=== PATIENT | female | born 1930 | race Caucasian/White ===

== ENCOUNTER 2016-12-24 09:38 | Emergency (ER) | payer OTHER ==
[~2016-12-24] VITALS: Ht 149.9 cm; Wt 56.7 kg
[~2016-12-24 09:38] MED LIST: AUGMENTIN 500M500 MG PO; COMBIGAN EYE DRO5 ML OP; DETROL LA 2 MG2 MG PO; FLU VACCINE 0.0.5 ML IM; LEVAQUIN750 MG PO; LEVOTHYROXINE100 MC1 PO; LISINOPRIL/HCTZ1 TAB PO; MIRAPEX0.5 M1 PO; NAPROSYN375 MG PO; NORVASC5 M1 PO; PERCOCET 325 MG1 TA2 PO; PRAMIPEXOLE DI0.5 MG PO; PRESERVISION A1 EACH PO; PRINIVIL 5MG5 MG; PROVENTIL0.09 MG/A1 INH; SINEMET 25-2501 EACH PO; SINEMET CR 50 M1 TER PO; SINEMET CR 50-1 EACH PO; SYMBICORT 80-10.2 GM INH; TRAMADOL50 MG PO; XALATAN2.5 ML OS
--- NOTE | 2016-12-24 09:56 | ED NECK/BACK PAIN COMPLAINT ---
History of Present Illness General Chief Complaint: Low Back Pain/Injury Stated Complaint: FALL LAST WEEK LBP Source: patient, old records, diesel inspector Exam Limitations: no limitations Vital Signs & Intake/Output Vital Signs & Intake/Output Vital Signs Date Time Temp Pulse Resp B/P Pulse O2 O2 Flow FiO2 Ox Delivery Rate 12/24 1152 97.2 66 18 144/75 97 Room Air 12/24 1127 96 Room Air 12/24 0944 97.0 80 16 118/70 97 Room Air Allergies Coded Allergies: prochlorperazine (From COMPAZINE) (Severe, ANAPHYLAXIS 02/09/16) prednisone (Intermediate, HALLUCINATIONS 02/09/16) Reconcile Medications Albuterol Sulfate (Proventil Hfa) 90 MCG HFA.AER.AD 2 PUF INH Q4 PRN BREATHING PROBLEMS (Reported) Amlodipine Besylate (Norvasc) 5 MG TABLET 1 TAB PO DAILY HEART (Reported) Brimonidine Tartrate/Timolol (Combigan Eye Drops) 0.2 %-0.5 % DROPS 1 DROP OP BID GLAUCOMA (Reported) Budesonide/Formoterol Fumarate (Symbicort 80-4.5 Mcg Inhaler) 80 MCG-4.5 MCG/ ACTUATION HFA.AER.AD 2 PUF INH BID COPD (Reported) Carbidopa/Levodopa (Sinemet Cr 50-200 Tablet) 50 MG-200 MG TABLET.ER 1 TAB PO QPM PARKINSONS (Reported) Carbidopa/Levodopa (Sinemet 25-250 MG Tablet) 25 MG-250 MG TABLET 1-2 TAB PO 4 TIMES/DAY PARKINSONS (Reported) Latanoprost (Xalatan) 0.005 % DROPS 1 GTT OS QPM OCCULAR PRESSURE (Reported) Levothyroxine Sodium 100 MCG TABLET 1 TAB PO DAILY AC THYROID (Reported) Pramipexole Di-HCl (Mirapex) 0.5 MG TABLET 2 TAB PO 4 TIMES/DAY PARKINSONS ( Reported) Tramadol HCl 50 MG TABLET 1 TAB PO BIDP PRN PAIN (Reported) Tramadol HCl 50 MG TABLET 1 TAB PO BIDP PRN breakthrough pain Vit A/Vit C/Vit E/Zinc/Copper (Preservision Areds Tablet) 7,160-113 TABLET 1 TAB PO BID EYE (Reported) Triage Note: PT FELL LAST WEEK PER INVESTMENT ADVISOR STATES HER BACK HAS BEEN FINE. PT STATES SHE WENT TO MOVE LAST NIGHT IN BED AND SHE BEGAN TO HAVE LEFT SIDED BACK PAIN. PT VOIDING WITHOUT DIFFICULTY Triage Nurses Notes Reviewed? yes Onset: Abrupt Duration: day(s): (1), constant, waxing and waning Timing: recent history Quality/Severity: moderate Location: paraspinous muscles Radiation: none Context: fall/near fall Method of Injury: fall Loss of Consciousness: no loss of consciousness Modifying Factors: movement, rest Associated Symptoms: DENIES HPI: 86-year-old female with history of Parkinson's, COPD hypertension presents emergency room complaining of left mid back pain since 1:00 this morning. The patient states that she fell from a standing height approximately 8 days ago landing on the left side of her back. She was in the kitchen and she stood up too fast before her diesel inspector to get over to her causing her to fall backwards. There is no prodromal dizziness or lightheadedness at the time. The patient denies any pain in her back up until today. There's been no other recent history of injury or trauma. She denies any urinary or bowel incontinence no abdominal pain no dysuria urgency or frequency. No change in her bowel movements no chest pain up her back or neck pain she did not hit her head there was no loss of consciousness when she fell 8 days ago she is not on any anticoagulation. The pain is only present with palpation and change in position. She has not taken anything for her symptoms. She denies any arm or leg pain. She lives with her son and normalLY ambulates with a walker (JUNAID WOO) Past History Travel History Traveled to [place] past 21 day No Medical History Any Pertinent Medical History? see below for history Neurological: Parkinson's disease EENT: NONE Cardiovascular: hypertension Respiratory: asthma, bronchitis Gastrointestinal: NONE Hepatic: NONE Renal: RHABDOMYOLYSIS Musculoskeletal: NONE Psychiatric: NONE Endocrine: hypothyroidism Blood Disorders: NONE Cancer(s): NONE HYDRAULIC BLOCKER/Reproductive: NONE Other Medical Hx: FREQUENT FALLS, HYPONATERMIA History of MRSA: No History of VRE: No History of CDIFF: No Tetanus Vaccine: 11/16/09 Surgical History Surgical History: APPY, CHOLY,KNEES Psychosocial History Who do you live with Son Services at Home None What is your primary language Syrian Tobacco Use: Never used ETOH Use: occasional use Illicit Drug Use: denies illicit drug use Family History Family History, If Any: SON FH: diabetes mellitus FH: hypertension SISTER FH: colon cancer Hx Contributory? No (JUNAID WOO) Review of Systems Review of Systems Constitutional: Reports: see HPI. All Other Systems: Reviewed and Negative Comments Review of systems: See HPI, All other systems negative. Constitutional, no chills no fever, no malaise HEENT: no sore throat no congestion Cardiovascular: No chest pain , no palpitation Skin, no jaundice no rashes, no change in skin Respiratory: No dyspnea no cough no sputum GI: No nausea no vomiting, no diarrhea : No dysuria Muscle skeletal: No joint pain, back pain, no neck pain, Neurologic: No numbness no headache Psych: No stress Heme/endocrine: No bruising no bleeding Immunology: No lymphadenopathy, (JUNAID WOO) Physical Exam Physical Exam General Appearance: well developed/nourished, no apparent distress, alert Neck: normal inspection, supple, full range of motion, normal alignment Comments: Well-developed well-nourished person in no acute distress HEENT: Normal EENT exam; PERRL, EOMI, HEAD is atraumatic. moist mucous membranes. Neck: Supple,\ normal range of motion without pain or tenderness Back: There is a 4 x 5 cm area of ecchymosis that is healing to the left mid back up machine operator to palpation no obvious deformity no midline tenderness there is left-sided perimuscular tenderness to palpation to the mid back and lower back no CVA tenderness. Full range of motion Cardiovascular: Regular rate and rhythms no murmurs rubs or gallops Respiratory: Chest nontender.There were no bony deformities, no asymmetry. No respiratory distress. Patient speaking in full complete sentences. Breath sounds clear to auscultation bilaterally: NO W/R/R Abdomen: Soft, nontender nondistended, no appreciable organomegaly. Normal bowel sounds. No rebound/guarding, No appreciable enlargement of the abdominal aorta Shoulder: Atraumatic/Stable. FROM . Elbow: Atraumatic/stable. FROM. No laxity Upper arm/Forearm: Atraumatic. Nontender. No edema, 5 out of 5 chain forming machine operator strength noted to bilateral upper extremities Hand/Wrist: Atraumatic/stable. Skin intact. FROM Pulses: Normal/equal radial pulses bilaterally. Brisk cap refill Hip/Pelvis: Atraumatic/Stable. FROM. No pain with pelvic compression Knee: Atraumatic/stable. FROM. No joint swelling, no effusion. No laxity. Leg: Atraumatic. Nontender. No edema, 5 out of 5 strength in the lower extremity, normal dorsiflexion of great toe bilaterally, gross sensation is intact Ankle/Foot: Atraumatic/stable. Skin intact. FROM. No swelling, no effusion. No laxity on exam Pulses: Normal/equal DP/PT pulses bilaterally. Brisk cap refill Neuro: Alert oriented x3, motor sensory normal, cranial nerves II through XII grossly intact. There were no obvious focal neurologic abnormalities. Skin: No appreciable rash on exposed skin, skin is warm and dry. Psych: Mood and affect is normal, memory and judgment is normal. (JUNAID WOO) Progress Differential Diagnosis: AAA, aortic dissection, cauda equina syn, herniated disc , myofascial strain, pyelo/UTI, sciatica, spinal cord inj, retroperitoneal hematoma Plan of Care: Orders Procedure Date/time Status URINALYSIS 12/24 1058 Complete Laboratory Tests 12/24/16 1104: Urine Color YEL, Urine Clarity CLEAR, Urine pH 6.0, Ur Specific [place] 1.020, Urine Protein NEG, Urine Ketones TRACE H, Urine Nitrite NEG, Urine Bilirubin NEG, Urine Urobilinogen 0.2, Ur Leukocyte Esterase NEG, Ur Microscopic EXAM NOT REQUIRED, Urine Hemoglobin NEG, Urine Glucose NEG CAT scan, tramadol 50 mg by mouth ordered patient was ambulatory by herself to the bathroom 12/24/2016 12:20:25 PM patient reports the pain has improved with tramadol. Patient is ambulatory here in the ER was stable gait with diesel inspector. I discussed with her and her diesel inspector at length all of her CT findings including the incidental findings. Discussed the need for close follow-up with her primary care physician this week rest ice to return immediately however if her symptoms worsen despite medication they feel comfortable plan (JUNAID WOO) Diagnostic Imaging: Viewed by Me: CT Scan. Discussed w/RAD: CT Scan. (JUNAID WOO) Departure Departure Time of Disposition: 1220 Disposition: HOME OR SELF CARE Condition: Stable Clinical Impression Primary Impression: Low back strain Secondary Impressions: Degenerative disc disease, Fall, Spinal stenosis, T12 compression fracture Referrals: VERN ROSE,PRESTON Henry (PCP/Family) Additional Instructions: Tylenol every 8 hours as needed for pain. Follow-up with her primary care physician today for follow-up evaluation this week. Rest interchange ice and heat. Tramadol as needed for breakthrough pain this prescription was sent to your pharmacy return immediately if you worsening of your symptoms or any other concerns Departure Forms: Customer Survey General Discharge Information Prescriptions: Current Visit Scripts Tramadol HCl 1 TAB PO BIDP PRN breakthrough pain #10 TAB (TWILA MALDONADO,JUNAID) PA/FARM MANAGEMENT ADVISER Co-Sign Statement Statement: ED Attending supervision documentation- x I saw and evaluated the patient. I have also reviewed all the pertinent lab results and diagnostic results. I agree with the findings and the plan of care as documented in the PA's/FARM MANAGEMENT ADVISER's documentation. [] I have reviewed the ED Record and agree with the PA's/FARM MANAGEMENT ADVISER's documentation. [] Additions or exceptions (if any) to the PAs/FARM MANAGEMENT ADVISER's note and plan are summarized below: [] (LISA ROSE,HOWARD)
[2016-12-24] MEDS ORDERED: PROVENTIL HFA6.7 GM INH (10:37)
[2016-12-24] MEDS ORDERED: TRAMADOL HCL50 M1 PO ×2 (10:41→12:21)
[2016-12-24 11:52] VITALS: BP 144/75
--- NOTE | 2016-12-24 11:55 | CT SCAN REPORT ---
EXAMINATION: CT THORACIC SPINE WITHOUT CONTRAST CT LUMBAR SPINE WITHOUT CONTRAST CLINICAL INFORMATION: 86-year-old female with left-sided pain after fall. COMPARISON: CT of chest, abdomen and pelvis from 02/01/2016. TECHNIQUE: Noncontrast multidetector CT imaging examination was focused on the thoracic spine using 0.625 mm collimation. Coronal and sagittal reformatted images were generated and reviewed. Also, noncontrast multidetector CT imaging of the lumbar spine was performed. Dose length product was 615 mGy-cm. FINDINGS: THORACIC SPINE: There is chronic multilevel degenerative disc space narrowing and osteophyte formation of the thoracic spine. There is mild facet arthropathy of the upper thoracic spine. There is chronic, minimal degenerative anterolisthesis of T2 on T3. No acute fractures within anterior or posterior elements. No evidence of traumatic subluxation. There is an old anterior compression fracture of T12 with at least 35% anterior height loss and prominent Schmorl's node is present at the deformed T12 inferior endplate. Vacuum disc phenomenon is present within the degenerated T12-L1 disc and within the Schmorl's node, which extends into the anterior third of the vertebral body. The thoracic spinal canal and neural foramina are widely patent. No paraspinal hematoma. The visualized medial ribs and costovertebral joints are intact. There is a moderate-sized hiatal hernia. Thoracic aorta is calcified. The mitral valve annulus is calcified. No pericardial effusion. No acute findings in the visualized portions of the lungs compared to 02/01/2016. LUMBAR SPINE: No acute findings within the chronically degenerated, malaligned lumbar spine compared to 02/01/2016. The anterior and posterior elements remain intact. At L1-L2 and L2-L3, there is chronic, severe loss of disc space, disc bulge, vacuum disc phenomenon, endplate sclerosis and osteophytosis. Mild facet arthropathy is present at these levels. The posterior disc osteophyte complexes produce mild indentation upon the ventral surface of the thecal sac. There is [id number] stenosis of the neural foramina, most pronounced on the left at L2-L3. At L3-L4, there is mild facet arthropathy, disc bulge, vacuum disc phenomenon with chronic 3 mm anterolisthesis of L3 on L4. The facet arthropathy and disc bulge produce moderate bilateral foraminal stenosis. At L4-L5, there is chronic moderate disc degeneration and facet arthropathy with 0.6 cm of grade 1 anterolisthesis of L4 on L5. The facet arthropathy and disc bulge produce moderate left and [id number] right foraminal stenosis. There is multifactorial moderate spinal canal stenosis at L4-L5. At L5-S1, there is chronic severe disc degeneration and mild facet arthropathy with chronic, minimal retrolisthesis of L5 on S1. The disc bulge and vertebral osteophytes produce moderate bilateral foraminal stenosis (right worse than left). The sacral ala and foramina are intact. No acute findings at the chronically degenerated sacroiliac joints. There is atherosclerosis of the tortuous abdominal aorta without aneurysm. The splenic artery is densely calcified. No retroperitoneal hematoma. Diverticulosis of the visualized sigmoid colon without diverticulitis. A jejunal tube is partially included in the [id number]. IMPRESSION: No acute fracture or traumatic subluxation within the chronically degenerated thoracolumbar spine compared to 02/01/2016. There is an old T12 anterior compression fracture with at least 35% anterior height loss. Prominent Schmorl's node involves the T12 inferior endplate, as well. Within the lumbar spine, spinal canal stenosis is present at L4-L5 and there is chronic grade 1 anterolisthesis of L4 on L5. There is multilevel lumbar foraminal stenosis.
== END 2016-12-24 12:32 ==
LOC: ERH 09:38
DX: S39.012A Strain of muscle, fascia and tendon of lower back, initial encounter (principal); S22.080A Wedge compression fracture of T11-T12 vertebra, initial encounter for closed fracture; M48.00 Spinal stenosis, site unspecified; W19.XXXA Unspecified fall, initial encounter
CPT/HCPCS: 81003

== ENCOUNTER 2017-05-21 08:38 | Inpatient (IN) | payer OTHER ==
[~2017-05-21] VITALS: Ht 152.4 cm; Wt 56.7 kg
[~2017-05-21 08:38] MED LIST changes: +PROVENTIL HFA6.7 GM INH; +TRAMADOL HCL50 M1 PO
[2017-05-21] MEDS ORDERED: CALCIUM500 M2 PO (08:53)
--- NOTE | 2017-05-21 08:54 | NUR ---
87 YO FEMALE BIBA FROM HOME. PER EMS, PT LIVES AT [facility] WITH A 24 HORUS AIDE. THE AIDE CALLED THIS AM STATING THE PT HAS BEEN ALTERED SINCE YESTERDAY AM. PT ARRIVES ALERT & ORIENTED TO SELF AND PLACE, PT TATING IT IS THURSDAY AND APRIL WHEN ASKED ABOUT DATE AND MONTH. PT HX OF TIA. PT DENIES CHEST PAIN/SOB. C/O FREQUENT URINATION, DENIES PAIN/BURNING. PT NSR ON MONITOR. RA SATS 96%. PT HAS ?PUMP ON CHEST, PER PT SHE STATES ITS FOR HER PARKINSONS. PT ALSO STATE SHE HAS BEEN FALLING ALOT, STATES SHE THINKS LAST FALL WAS ON ?THURSDAY. DENIES INJURY FROM FALL. EQUAL HAND GRASPS. R EYE NOTED WITH DROOP. EQUAL SMILE.
[2017-05-21] MEDS ORDERED: LATANOPROST2.5 ML OPH (08:55)
[2017-05-21] MEDS ORDERED: SPIRIVA18 MCG INH (08:55)
--- NOTE | 2017-05-21 09:02 | NUR ---
BLOOD DRAWN AND SENT TO LAB (BLUE,SST,PINK,LAV,BOOTH)
--- NOTE | 2017-05-21 09:07 | NUR ---
STRAIGHT CATH PERFORMED FOR URINE SPECIMEN, OUTPUT 100CC CLEAR URINE. SPECIMEN SENT TO LAB. XRAY AT BEDSIDE
--- NOTE | 2017-05-21 09:22 | NUR ---
PT TO CT SCAN VIA STRETCHER AT THIS TIME
[2017-05-21 09:24] LABS: ABSOLUTE BASOPHIL COUNT 0 /CUMM (0.0-0.2); ABSOLUTE EOSINOPHIL COUNT 0.1 /CUMM (0.0-0.7); ABSOLUTE GRANULOCYTE CT 4.2 /CUMM (1.4-6.5); ABSOLUTE LYMPH COUNT 0.7 /CUMM (1.2-3.4); ABSOLUTE MONOCYTE COUNT 0.4 /CUMM (0.10-0.60); BASOPHIL % 0.5 % (0.0-2.0); EOSINOPHIL % 1.8 % (0-5); GRANULOCYTE % 76.7 % (42.2-75.2); HEMATOCRIT 40.8 % (37-47); MEAN CORPUSCULAR HGB CONC 33.3 G/DL (33.0-37.0); MEAN PLATELET VOLUME 8.6 FL (7.4-10.4); PLATELET COUNT 223 /CUMM (130-400); RBC DISTRIBUTION WIDTH 13.4 % (11.5-14.5); RED BLOOD CELL CT 4.25 /CUMM (4.20-5.40); WHITE BLOOD CELL COUNT 5.5 /CUMM (4.8-10.8)
--- NOTE | 2017-05-21 09:29 | ED AMS/SEIZURE/WEAK/DIZZY ---
History of Present Illness General Chief Complaint: Altered Mental Status Stated Complaint: ALTERED MENTAL STATUS, WEAKNESS Source: patient, family, old records Exam Limitations: dementia Allergies Coded Allergies: prochlorperazine (From COMPAZINE) (Severe, ANAPHYLAXIS 02/09/16) prednisone (Intermediate, HALLUCINATIONS 02/09/16) Reconcile Medications Amlodipine Besylate (Norvasc) 5 MG TABLET 1 TAB PO DAILY HEART (Reported) Brimonidine Tartrate/Timolol (Combigan Eye Drops) 0.2 %-0.5 % DROPS 1 DROP OP BID GLAUCOMA (Reported) Budesonide/Formoterol Fumarate (Symbicort 80-4.5 Mcg Inhaler) 80 MCG-4.5 MCG/ ACTUATION HFA.AER.AD 2 PUF INH BID COPD (Reported) Calcium Carbonate (Calcium) 500 MG CALCIUM (1,250 MG) TAB.CHEW 500 MG PO D SUPPLEMENT (Reported) Carbidopa/Levodopa (Sinemet Cr 50-200 Tablet) 50 MG-200 MG TABLET.ER 1 TAB PO QPM PARKINSONS (Reported) Latanoprost (Xalatan) 0.005 % DROPS 1 GTT OS QPM OCCULAR PRESSURE (Reported) Levothyroxine Sodium 100 MCG TABLET 1 TAB PO DAILY AC THYROID (Reported) Tiotropium [place] (Spiriva) 18 MCG CAP.W.DEV 1 CAP INH DAILY PRN SOB ( Reported) Triage Note: 87 YO FEMALE TIM FROM HOME. PER EMS, PT LIVES AT [facility] WITH A 24 HORUS AIDE. THE AIDE CALLED THIS AM STATING THE PT HAS BEEN ALTERED SINCE YESTERDAY AM. PT ARRIVES ALERT & ORIENTED TO SELF AND PLACE, PT TATING IT IS THURSDAY AND APRIL WHEN ASKED ABOUT DATE AND MONTH. PT HX OF TIA. PT DENIES CHEST PAIN/SOB. C/O FREQUENT URINATION, DENIES PAIN/BURNING. PT NSR ON MONITOR. RA SATS 96%. PT HAS ?PUMP ON CHEST, PER PT SHE STATES ITS FOR HER PARKINSONS. PT ALSO STATE SHE HAS BEEN FALLING ALOT, STATES SHE THINKS LAST FALL WAS ON ?THURSDAY. DENIES INJURY FROM FALL. EQUAL HAND GRASPS. R EYE NOTED WITH DROOP. EQUAL SMILE. Triage Nurses Notes Reviewed? yes Onset: Abrupt Duration: day(s): (few), constant, continues in ED Timing: recent history Injury Environment: home No Modifying Factors: none HPI: 87-year-old female comes into emergency room for further evaluation of altered mental status by ambulance. History of Parkinson's disease as well as TIAs. Family reports that they noticed the patient was not acting right yesterday. She seemed to be increasingly weak. Not acting herself. Patient and family deny any chest pain shortness of breath abdominal pain fever vomiting. This morning she was bent over to her right side and contracted. This is happening in the past with her Parkinson's but has never been this severe. History of urinary tract infections. They noted that her urine was very concentrated this morning. Denies any other associated symptoms at this time. (LEANNA MORRISSEY) Vital Signs & Intake/Output Vital Signs & Intake/Output Vital Signs Date Time Temp Pulse Resp B/P B/P Pulse O2 O2 Flow FiO2 Mean Ox Delivery Rate 05/21 1052 98.3 64 18 100/67 95 Room Air 05/21 0855 95 Room Air 05/21 0845 97.3 80 20 120/78 96 Room Air Past History Travel History Traveled to [place] past 21 day No Medical History Any Pertinent Medical History? see below for history Neurological: Parkinson's disease EENT: NONE Cardiovascular: hypertension Respiratory: asthma, bronchitis Gastrointestinal: NONE Hepatic: NONE Renal: RHABDOMYOLYSIS Musculoskeletal: NONE Psychiatric: NONE Endocrine: hypothyroidism Blood Disorders: NONE Cancer(s): NONE BAG SEWER/Reproductive: NONE Other Medical Hx: FREQUENT FALLS, HYPONATERMIA History of MRSA: No History of VRE: No History of CDIFF: No Tetanus Vaccine: 11/16/09 Surgical History Surgical History: APPY, CHOLY,KNEES Psychosocial History Who do you live with Son Services at Home None What is your primary language Sami Tobacco Use: Never used ETOH Use: denies use Illicit Drug Use: denies illicit drug use Family History Family History, If Any: SON FH: diabetes mellitus FH: hypertension SISTER FH: colon cancer Hx Contributory? No (LEANNA MORRISSEY) Review of Systems Review of Systems Constitutional: Reports: see HPI. EENTM: Reports: no symptoms. Respiratory: Reports: no symptoms. Cardiovascular: Reports: no symptoms. GI: Reports: no symptoms. Genitourinary: Reports: no symptoms. Musculoskeletal: Reports: no symptoms. Skin: Reports: no symptoms. Neurological/Psychological: Reports: see HPI. Hematologic/Endocrine: Reports: no symptoms. Immunologic/Allergic: Reports: no symptoms. All Other Systems: Reviewed and Negative (LEANNA MORRISSEY) Physical Exam Physical Exam General Appearance: alert, awake Head: atraumatic, normal appearance Eyes: Bilateral: normal appearance, EOMI. Ears, Nose, Throat: normal ENT inspection, hearing grossly normal Neck: normal inspection Respiratory: normal breath sounds, no respiratory distress Cardiovascular: regular rate/rhythm Gastrointestinal: soft Back: normal inspection Extremities: normal range of motion Neurologic/Psych: no motor/sensory deficits, awake, alert, oriented x 3, abnormal cerebellar tests (right finger (chronic)) Skin: intact, normal color Core Measures ACS in differential dx? Yes CVA/TIA Diagnosis: Yes Severe Sepsis Present: No Septic Shock Present: No Bedside Dysphagia Screen Bedside Swallow Eval Done: Yes Result of Evaluation: Pass (LEANNA MORRISSEY) Progress Differential Diagnosis: arrythmia, alcohol intoxication, CVA/stroke, dehydration , encephalitis, electrolyte imbalance, hypoxia, intracranial Hem., intracranial mass/tumor, labrynthitis, pneumonia, sepsis, seizure disorder, subarachnoid Hem. , UTI/pyelo, vertebrobasilar insuff, TIA Plan of Care: Orders Procedure Date/time Status CBC WITHOUT DIFFERENTIAL 05/22 600 Active BASIC ELECTROLYTES PLUS BUN&CR 05/22 06 Active Heart Healthy Diet 05/21 D Active PT Evaluate & Treat 05/21 1306 Active Pathway - chart 05/21 1306 Active House Staff 05/21 1306 Active Patient Data 05/[address] in observation 05/21 1206 Active CULTURE,URINE 05/21 0851 Active URINALYSIS 05/21 0851 Complete TROPONIN LEVEL 05/21 0851 Complete LIPASE 05/21 0851 Complete LACTIC ACID 05/21 0851 Complete COMPREHENSIVE METABOLIC PANEL 05/21 0851 Complete CBC WITHOUT DIFFERENTIAL 05/21 0851 Complete EKG 05/21 0844 Active VTE Mechanical Prophylaxis 05/21 UNK Active Vital Signs 05/21 UNK Active MISTAKE 05/21 UNK Active Precautions 05/21 UNK Active Current Medications Sig/Cristal Start time Last Medication Dose Stop Time Status Admin Heparin Sodium 5,000 UNIT Q8 05/21 1400 UNVr (Porcine) Acetaminophen 650 MG Q6P PRN 05/21 1315 UNVr (Tylenol) Acetaminophen/ 1 TAB Q6P PRN 05/21 1315 UNVr Hydrocodone Bitart (Vicodin) Hydromorphone HCl 0.5 MG Q4P PRN 05/21 1315 UNVr (Dilaudid) Laboratory Tests 05/21/17 1151: Lactic Acid Cancelled 05/21/17 0905: Urine Color YEL, Urine Clarity CLEAR, Urine pH 6.5, Ur Specific [place] 1.020, Urine Protein TRACE H, Urine Ketones 15 H, Urine Nitrite NEG, Urine Bilirubin NEG, Urine Urobilinogen 0.2, Ur Leukocyte Esterase TRACE H, Ur Microscopic SEDIMENT EXAMINED, Urine WBC 5-10 H, Ur Epithelial Cells FEW, Urine Bacteria FEW H, Hyaline Casts 1-3 H, Urine Hemoglobin NEG, Urine Glucose NEG 05/21/17 0859: Anion Gap 11, Estimated GFR > 60, BUN/Creatinine Ratio 32.0 H, Glucose 190 H, Lactic Acid 1.8, Calcium 9.1, Total Bilirubin 0.8, AST 20, ALT 20, Alkaline Phosphatase 85, Troponin I < 0.01, Total Protein 7.0, Albumin 4.0, Globulin 3.0, Albumin/Globulin Ratio 1.3, Lipase 69, CBC w Diff NO MAN DIFF REQ, RBC 4.25, MCV 96.0, MCH 32.0 H, RDW 13.4, MPV 8.6, Gran % 76.7 H, Lymphocytes % 13.1 L, Monocytes % 7.9, Eosinophils % 1.8, Basophils % 0.5, Absolute Granulocytes 4.2, Absolute Lymphocytes 0.7 L, Absolute Monocytes 0.4, Absolute Eosinophils 0.1, Absolute Basophils 0, PUBS MCHC 33.3 Microbiology 05/21 905 URINE ROUT: Urine Culture - RECD Diagnostic Imaging: Viewed by Me: Radiology Read, CT Scan. Discussed w/RAD: Radiology Read, CT Scan. Radiology Impression: SERVICE DATE: 05/21/17 EXAM TYPE: CAT - CT HEAD WO IV CONTRAST EXAMINATION: CT HEAD WITHOUT CONTRAST CLINICAL INFORMATION: Frequent falls. Altered mental status. COMPARISON: CT head 07/13/2016. TECHNIQUE: Contiguous axial imaging was performed from the skull base to vertex without intravenous administration of contrast. DLP: 548.93 mGy-cm FINDINGS: There is no acute intracranial hemorrhage or abnormal extra-axial collection. No intracranial mass effect or midline shift. Lateral and third ventricles are proportionate to the subarachnoid spaces. No hydrocephalus. There is a small focus of hypoattenuation within the left cerebellar hemisphere that most likely represents a small infarct that has remained unchanged from prior imaging. There are numerous foci of nonspecific hypoattenuation throughout the periventricular white matter and basal ganglia that most likely represent a chronic manifestation of small vessel ischemia. Grossly no evidence of acute territorial infarct. The calvarium and skull base are intact. Mastoid air cells and middle ear cavities are well-aerated. Paranasal sinuses are well-aerated. Hardware along the lateral margin of the right globe is unchanged. Orbits are otherwise unremarkable. IMPRESSION: Stable examination. Numerous chronic findings remain essentially unchanged when compared to most recent prior examination from 2015. No evidence of acute territorial infarct or hemorrhage. DICTATED BY: JOJO ROSE,ELYSSA Mares DATE/TIME DICTATED:05/21/171002 FARM MACHINERY ERECTOR: DARVIN DATE/TIME TRANSCRIBED:05/21/171002, SERVICE DATE: 05/21/17 EXAM TYPE: RAD - XRY-PORTABLE CHEST XRAY EXAMINATION: XR PORTABLE CHEST CLINICAL INFORMATION: Altered mental status COMPARISON: 07/13/2016 TECHNIQUE: Portable frontal view of the chest was obtained. FINDINGS: No focal consolidation, pulmonary edema, or pleural effusion. Stable cardiomediastinal silhouette. IMPRESSION: No acute cardiopulmonary findings. No change. DICTATED BY: MERISSA PARKER MD DATE/TIME DICTATED:05/21/17944 FARM MACHINERY ERECTOR: DARVIN DATE/TIME TRANSCRIBED:05/21/17944 Initial ED EKG: normal intervals, normal p-waves, normal sinus rhythm, rate (68) , nonspecific ST T wave chg (LEANNA MORRISSEY) Comments: 05/21/2017 12:23:31 PM I have discussed this patient's case with Dr. Valles, including the clinical impression of TIA, the presence of the patient's carbidopa pump and the possibility of a shingles rash of the right upper extremity (as determined by ERICA Nicholson). She has asked the nursing supervisor computer operations be alerted to the carbidopa pump. (SANDRA ROSE,CURTIS Lindsay) Departure Departure Disposition: STILL A PATIENT Condition: Stable Clinical Impression Primary Impression: TIA (transient ischemic attack) Secondary Impressions: Shingles rash Referrals: VERN ROSE,PRESTON Henry (PCP/Family) Departure Forms: Customer Survey General Discharge Information (LEANNA MORRISSEY) Observation Note Spoke With: REMY LOONEY MD Physician Advisor Notified: ANUSHKA ROSE,GAMALIEL Flores Place Patient In: Non-ED OBS Care Area Rationale for Observation: My rational for observation is as follows patient's clinical presentation is consistent with a TIA. This places her at risk of a stroke with subsequent morbidity and mortality. The patient now requires an expedited evaluation for reversible causes of stroke including carotid artery disease and cardioembolic phenomenon. The do not feel she is a good candidate for outpatient management under the circumstances. Patient's Age and history of severe Parkinson disease would make outpatient management challenging. I suspect that the patient would not be able to complete the expedited evaluation necessary. I feel she now requires hospitalization for further evaluation including consideration of echocardiogram and carotid Doppler studies. Neurology consultation should also be considered. Patient's medication should be reviewed and adjusted accordingly. Continuous cardiac monitoring should also be performed for the possibility of transient dysrhythmias including atrial fibrillation. PA/SCHOOL PATROL Co-Sign Statement Statement: ED Attending supervision documentation- [X] I saw and evaluated the patient. I have also reviewed all the pertinent lab results and diagnostic results. I agree with the findings and the plan of care as documented in the PA's/SCHOOL PATROL's documentation. [] I have reviewed the ED Record and agree with the PA's/SCHOOL PATROL's documentation. [] Additions or exceptions (if any) to the PAs/SCHOOL PATROL's note and plan are summarized below: [] (SANDRA ROSE,CURTIS Lindsay)
--- NOTE | 2017-05-21 09:38 | NUR ---
BACK FROM CAT SCAN
--- NOTE | 2017-05-21 09:50 | RADIOLOGY REPORT ---
EXAMINATION: XR PORTABLE CHEST CLINICAL INFORMATION: Altered mental status COMPARISON: 07/13/2016 TECHNIQUE: Portable frontal view of the chest was obtained. FINDINGS: No focal consolidation, pulmonary edema, or pleural effusion. Stable cardiomediastinal silhouette. IMPRESSION: No acute cardiopulmonary findings. No change.
--- NOTE | 2017-05-21 10:10 | CT SCAN REPORT ---
EXAMINATION: CT HEAD WITHOUT CONTRAST CLINICAL INFORMATION: Frequent falls. Altered mental status. COMPARISON: CT head 07/13/2016. TECHNIQUE: Contiguous axial imaging was performed from the skull base to vertex without intravenous administration of contrast. DLP: 548.93 mGy-cm FINDINGS: There is no acute intracranial hemorrhage or abnormal extra-axial collection. No intracranial mass effect or midline shift. Lateral and third ventricles are proportionate to the subarachnoid spaces. No hydrocephalus. There is a small focus of hypoattenuation within the left cerebellar hemisphere that most likely represents a small infarct that has remained unchanged from prior imaging. There are numerous foci of nonspecific hypoattenuation throughout the periventricular white matter and basal ganglia that most likely represent a chronic manifestation of small vessel ischemia. Grossly no evidence of acute territorial infarct. The calvarium and skull base are intact. Mastoid air cells and middle ear cavities are well-aerated. Paranasal sinuses are well-aerated. Hardware along the lateral margin of the right globe is unchanged. Orbits are otherwise unremarkable. IMPRESSION: Stable examination. Numerous chronic findings remain essentially unchanged when compared to most recent prior examination from 07/13/2016. No evidence of acute territorial infarct or hemorrhage.
--- NOTE | 2017-05-21 11:44 | NUR ---
ASSITED PT TO BEDPAN, NO URINE AT THIS TIME. PT REPOSITONED IN BED. FAMILY AND CAREGIVER REMIAN AT BEDSIDE.
--- NOTE | 2017-05-21 12:43 | History & Physical ---
ISELA SHERMAN 05/21/17 1242: General Information and HPI MD Statement: I have seen and personally examined MAC MITCHELL and documented this H&P. The patient is a 87 year old F who presented with a patient stated chief complaint of [altered mental staus]. Source of Information: patient, family Exam Limitations: clinical condition, poor historian History of Present Illness: 87-year-old female with a past medical history of Parkinson's disease on infusion pump for 16 hours, hypertension, questionable TIA, macular degeneration , COPD not on home oxygen, hypothyroidism, hypertension was brought in by ambulance to the ER with chief complaint of altered mental status and what seems to be seizure-like activity. History is obtained from the patient's health aide and her son. Apparently the patient was having breakfast this morning at around 7:30 AM when she suddenly beame unresponsive and had jerky movements, closed her eyes and was shaking, not responding to any verbal commands. This episode lasted for about 5 minutes and was a witnessed event. Patient does not recall the event at all. She denies any chest pain, palpitations, nausea, vomiting, diaphoresis prior to the event occurring. Apparently she was sitting at the breakfast table and so there is no history of fall. According to the home health aide Mell, patient did have some right-sided ptosis which gradually resolved. There is no right-sided facial droop or weakness that the family noticed. Patient seemed incoherent but there is no history of slurred speech that they can completely identify with. Of note Ms. Mitchell uses a walker at baseline for ambulation. She seemed a little altered since yesterday and was found to be confused, saying things that were out of context. [place] and was having increased difficulty coordinating and in feeding herself. Patient does endorse some urinary frequency last night, however, denies any burning sensation, fever, chills, cough, purulent productive phlegm, abdominal pain, nausea, vomiting, diarrhea. Of note she follows up with Dr. Chamorro at [facility] and is on an infusion pump for her Parkinson's (apparently an experimental trial). There is a history of pain in her right arm with the appearance of vesicular rash this morning. Apparently the patient is not immunocompromised, however, there has been recent stressors with 2 of her close friends and sister passing away recently. There is no history of tick bite. Apparently she's had frequent falls which for the most part are mechanical as the patient was not using her walker. They last fall was about 2 months ago. No history of bladder or bowel incontinence and or tongue biting. Allergies/Medications Allergies: Coded Allergies: prochlorperazine (From COMPAZINE) (Severe, ANAPHYLAXIS 02/09/16) prednisone (Intermediate, HALLUCINATIONS 02/09/16) Home Med list Amlodipine Besylate (Norvasc) 5 MG TABLET 1 TAB PO DAILY HEART (Reported) Brimonidine Tartrate/Timolol (Combigan Eye Drops) 0.2 %-0.5 % DROPS 1 DROP OP BID GLAUCOMA (Reported) Budesonide/Formoterol Fumarate (Symbicort 80-4.5 Mcg Inhaler) 80 MCG-4.5 MCG/ ACTUATION HFA.AER.AD 2 PUF INH BID COPD (Reported) Calcium Carbonate (Calcium) 500 MG CALCIUM (1,250 MG) TAB.CHEW 500 MG PO D SUPPLEMENT (Reported) Carbidopa/Levodopa (Sinemet Cr 50-200 Tablet) 50 MG-200 MG TABLET.ER 1 TAB PO QPM PARKINSONS (Reported) Latanoprost (Xalatan) 0.005 % DROPS 1 GTT OS QPM OCCULAR PRESSURE (Reported) Levothyroxine Sodium 100 MCG TABLET 1 TAB PO DAILY AC THYROID (Reported) Mirabegron (Myrbetriq) 50 MG TAB.ER.24H 1 TAB PO DAILY overactive bladder ( Reported) Tiotropium [place] (Spiriva) 18 MCG CAP.W.DEV 1 CAP INH DAILY PRN SOB ( Reported) Compliance With Home Meds: GOOD Past History Travel History Traveled to [place] past 21 day No Medical History Neurological: Parkinson's disease EENT: NONE Cardiovascular: hypertension Respiratory: asthma, bronchitis Gastrointestinal: NONE Hepatic: NONE Renal: RHABDOMYOLYSIS Musculoskeletal: NONE Psychiatric: NONE Endocrine: hypothyroidism Blood Disorders: NONE Cancer(s): NONE PIN ATTACHER/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 Home Who Do You Live With? child Services at Home: Home Health Aide Primary Language: Zimbabwean Smoking Status: Never Smoked ETOH Use: denies use Illicit Drug Use: denies illicit drug use Power of Hand Worker/HCP? yes Functional Ability ADLs Independent: dressing, eating, toileting, bathing. Ambulation: walker IADLs Independent: shopping, housework, finances, food prep, telephone, transportation , medication admin. Review of Systems Review of Systems Constitutional: Denies: chills, fever, weakness. EENTM: Denies: visual changes. Cardiovascular: Denies: chest pain, orthopena, palpitations, peripheral edema. Respiratory: Denies: cough, short of breath, sputum production, wheezing. GI: Denies: abdominal pain, constipation, diarrhea, nausea, vomiting. Genitourinary: Reports: frequency. Denies: discharge, dysuria, hematuria, pain, urgency. Musculoskeletal: Reports: see HPI, back pain. Neurological/Psychological: Reports: confusion, tremors. Denies: headache, numbness, paresthesia, unable to move lower ext, unable to move upper ext, weakness. Exam & Diagnostic Data Last 24 Hrs of Vital Signs/I&O Vital Signs Date Time Temp Pulse Resp B/P B/P Pulse O2 O2 Flow FiO2 Mean Ox Delivery Rate 05/21 1052 98.3 64 18 100/67 95 Room Air / 0855 95 Room Air 05/21 0845 97.3 80 20 120/78 96 Room Air Intake & Output 05/21 1600 07/06 0800 07/ 0000 Intake Total Output Total Balance Patient 125 lb Weight Weight Reported by Patient Measurement Method Physical Exam General Appearance Alert, Cooperative, No Acute Distress, oriented to person Skin has vesicopustular rash on her right arm that invloves the distributionof the brachial plexus Skin Temp/Moisture Exam: Warm/Dry Sepsis Skin Exam (color): Normal for Ethnicity HEENT Atraumatic, EOMI, Mucous Membr. moist/pink, right eye minimally recative, left eye s/p catract surgery Neck Supple, No JVD, +2 Carotid Pulse wo Bruit, No LAD Cardiovascular Normal S1, Normal S2, No Murmurs Lungs Clear to Auscultation, Normal Air Movement Abdomen Normal Bowel Sounds, Soft, No Tenderness, has a PEG tube attached to infusion pump, site is not tender, non-erythematous. Neurological Normal Speech, Sensation Intact, cogwheel rigidity with pin rolling tremor of right hand, CNII- VII and IX- XII grossly intact intact; gait not assessed; Extremities No Cyanosis, No Edema, Normal Pulses, No Tenderness/Swelling, Has degenerative arthritic changes in her hands. Vascular Normal Pulses, Pulses Symmetrical Last 24 Hrs of Labs/Deangelo: Laboratory Tests 05/21/17 1151: Lactic Acid Cancelled 05/21/17 0905: Urine Color YEL, Urine Clarity CLEAR, Urine pH 6.5, Ur Specific [place] 1.020, Urine Protein TRACE H, Urine Ketones 15 H, Urine Nitrite NEG, Urine Bilirubin NEG, Urine Urobilinogen 0.2, Ur Leukocyte Esterase TRACE H, Ur Microscopic SEDIMENT EXAMINED, Urine WBC 5-10 H, Ur Epithelial Cells FEW, Urine Bacteria FEW H, Hyaline Casts 1-3 H, Urine Hemoglobin NEG, Urine Glucose NEG 05/21/17 0859: Anion Gap 11, Estimated GFR > 60, BUN/Creatinine Ratio 32.0 H, Glucose 190 H, Lactic Acid 1.8, Calcium 9.1, Total Bilirubin 0.8, AST 20, ALT 20, Alkaline Phosphatase 85, Troponin I < 0.01, Total Protein 7.0, Albumin 4.0, Globulin 3.0, Albumin/Globulin Ratio 1.3, Lipase 69, CBC w Diff NO MAN DIFF REQ, RBC 4.25, MCV 96.0, MCH 32.0 H, RDW 13.4, MPV 8.6, Gran % 76.7 H, Lymphocytes % 13.1 L, Monocytes % 7.9, Eosinophils % 1.8, Basophils % 0.5, Absolute Granulocytes 4.2, Absolute Lymphocytes 0.7 L, Absolute Monocytes 0.4, Absolute Eosinophils 0.1, Absolute Basophils 0, PUBS MCHC 33.3 Microbiology 05/21 905 URINE ROUT: Urine Culture - RECD Diagnostic Data EKG Results NSR, HR: 68; normal axis, no ST-T changes. CXR Results FINDINGS: No focal consolidation, pulmonary edema, or pleural effusion. Stable cardiomediastinal silhouette. IMPRESSION: No acute cardiopulmonary findings. No change. Other Results SERVICE DATE: 05/21/17-899 EXAM TYPE: CAT - CT HEAD WO IV CONTRAST FINDINGS: There is no acute intracranial hemorrhage or abnormal extra-axial collection. No intracranial mass effect or midline shift. Lateral and third ventricles are proportionate to the subarachnoid spaces. No hydrocephalus. There is a small focus of hypoattenuation within the left cerebellar hemisphere that most likely represents a small infarct that has remained unchanged from prior imaging. There are numerous foci of nonspecific hypoattenuation throughout the periventricular white matter and basal ganglia that most likely represent a chronic manifestation of small vessel ischemia. Grossly no evidence of acute territorial infarct. The calvarium and skull base are intact. Mastoid air cells and middle ear cavities are well-aerated. Paranasal sinuses are well-aerated. Hardware along the lateral margin of the right globe is unchanged. Orbits are otherwise unremarkable. IMPRESSION: Stable examination. Numerous chronic findings remain essentially unchanged when compared to most recent prior examination from 07/13/2016. No evidence of acute territorial infarct or hemorrhage. Assessment/Plan Assessment: 87-year-old woman with a past medical history of Parkinson's, TIA, hypothyroidism, hypertension, COPD who was brought in by ambulance from home with chief complaints of altered mentation. Vitals at the time of admission blood pressure 100/67, respiratory rate of 18, pulse 64, afebrile saturating 95% on room air. Labs pertinent for normal white blood cell count 5500, H&H of 13.6/40.8, MCV of 96.0. Platelet count is within normal limits at 2 23,000. Serum chemistries revealed a sodium of 138, potassium of 4.3, normal bicarbonate, BUN 16 with a creatinine of 0.5. Serum glucose elevated to 190. Lactic acid within normal limits at 1.8. LFTs unremarkable with an AST/alt of 20/20, alkaline phosphatase of 85, total bili of 0.8% of troponin negative less than 0.01. Serum lipase within normal limits at 69. UA revealed trace amount of proteinuria, 15 ketones , trace amount of leukocyte esterase, 5-10 white blood cells, 1-3 hyaline casts. Chest x-ray revealed: No acute cardiopulmonary findings. No change. EKG revealed: NSR, HR: 68; normal axis, no ST-T changes. Head CT showed numerous chronic findings essentially unchanged when compared to the CT done back in June 2016. No evidence of acute territorial infarct or hemorrhage. There is a small focus of hypoattenuation within the left cerebellar hemisphere that most likely represents a small infarct that has remained unchanged from prior imaging. There are numerous foci of nonspecific hypoattenuation throughout the periventricular white matter and basal ganglia that most likely represent a chronic manifestation of small vessel ischemia. Grossly no evidence of acute territorial infarct. The calvarium and skull base are intact. Mastoid air cells and middle ear cavities are well-aerated. Paranasal sinuses are well-aerated. Hardware along the lateral margin of the right globe is unchanged. Assessment and Plan: Bring under observation to telemetry. #Altered mental status Most divyaley 2/2 worsening Parkinsons, with ? seizure like activity this AM, unlikely metabolic given normal electrolytes for now. Patient passed bedside swallow eval. However, will r/o TIA given symptoms of trasnient right sided ptosis. F/U carotid US, MRI brain, TSH, FT4, serum prolactin level, Vitamin B12, echocardiogram, EEG, and orthostatic itals. Will check HbA1c as her FSG was elvated to 190. Neuro consult with Dr. Rodriguez. F/U ercommendations. Formal PT and speech therapy. Fariha on fall and seizure precautions. 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 Already palced consult with . F/U recs. Of note for localized zoster, she just needs to be on standard precautions. Will check for HIV, patient is has no apparent reason to be immunocompromised. #Hx of Parkisnons. On infusion pump that the health aide knows how to hold and disconnect and maniputae with. Continue on infusion pump fo rnow, and Carbidopa-Levodopa 50/200 at bedtime for now. Called Dr. Baumann's office, awaiting call back. #HTN Continue Amlodipine 5 mg daily. #Hypothyroidism Continue Levothyroxine 0.1mg # COPD not on home oxygen - Continue Spiriva and Symbicort # Hyperactive urinary bladder Continue home dose of Myrbetriq - Diet Regular Await formal swallow eval - DVT Prophylaxis - Heparin 5000IU TID SC - Code Status - Full Code. As Ranked By This Provider Problem List: 1. Shingles rash 2. Parkinson's disease 3. Frequent falls 4. Seizure Core Measures/Miscellaneous Acute Coronary Syndrome ACS Diagnosis: No Cerebrovascular Accident CVA/TIA Diagnosis: No NIH Stroke Scale: Total 1 Date Last Known Well: 05/21/17 Time Last Known Well: 729 Neurological S/S of CVA: Incoherent Speech Symptom Start Date: 05/21/17 Symptom Start Time: 729 Bedside Swallow Eval Done: Yes Result of Evaluation: Pass Antithrombotic: Yes AFIB: No Aflutter: No Anticoagulant: No No Anticoag d/t: Medical Contraindication Evidence of Atherosclerosis: No LDL Assessed Within 24 Hours: Yes Currently on Statin: No Rehab Needs Assessed: Medical Eval for Rehab PT Consult Ordered: Yes Congestive Heart Failure CHF Diagnosis: No VTE (View Protocol) VTE Risk Factors: Age > 40 No Mech VTE prophylaxis d/t: No contraindications No VTE Pharm Prophylaxis d/t: No contraindications VTE Diagnosis: No VTE Type: NONE VTE Confirmed by (Test): NONE Sepsis (View Protocol) Severe Sepsis Present: No Septic Shock Septic Shock Present: No Miscellaneous Documentation Attending Case Discussed With: Dr. Mccain Primary Care Physician: PRESTON PORRAS MD Patient sees these Specialists Dr. Stephen Ivey Level of Patient Care: Telemetry Resident Review Statement Resident Statement: admitted by resident MANNY MCCAIN 05/21/17 1429: Attending MD Review Statement Attending Statement Attending MD Statement: examined this patient, discuss w/resident/PA/COFFEE FARMER, agreed w/resident/PA/COFFEE FARMER, discussed with family, reviewed EMR data (avail), discussed with nursing, discussed with case mgmt, reviewed images, amended to note Attending Assessment/Plan: 87 o/f poor historian with pmh of parkinson disease on carbidopa/levadopa as outpatient followed by neurology at [place], comes with altered mental status and rash on right arm with abnormal movements of arms. vital stable, PE with rash otherwise unremarkable. ASSESSMENT 1. Encephalopathy r/o seizure vs TIA no focal deficit 2. Shingles infection 3. Parkinson disease on carbidopa/levadopa 4. hypothyroidism 5. copd stable PLAN monitor telemetry monitoring, frequent neurochecks MRI brain, Neurology consult, resume home meds, bedside swallow test. CPKs, echo, carotid USG, obtain previous medical records resume home meds gi/dvt prophyalxis
--- NOTE | 2017-05-21 13:36 | NUR ---
PT REMAINS RESTING COMOFRTBLY ON STRETCHER. OFFERS NO COMPLAINTS FAMILY REMAINS AT BEDSIDE
--- NOTE | 2017-05-21 13:37 | NUR ---
HEART HEALTHY TRAY ORDERED FOR PT AT THIS TIME
--- NOTE | 2017-05-21 13:40 | NUR ---
BED 189
[2017-05-21] MEDS ORDERED: MYRBETRIQ50 M1 PO (14:41)
--- NOTE | 2017-05-21 15:03 | NUR ---
PT AT BEDSIDE, ULTRASOUND TO COME OVER FOR US PRIOR TO PT GOING UPSTAIRS
--- NOTE | 2017-05-21 15:03 | NUR ---
REPORT GIVEN TO APRIL ON TELE.
--- NOTE | 2017-05-21 15:05 | NUR ---
US AT BEDSIDE
--- NOTE | 2017-05-21 15:05 | NUR ---
PHYSICAL THERAPY- RECIEVED CONSULT, REVIEWED CHART, SPOKE WITH RN. ATTEMPTED TO SEE PATIENT FOR I.E. HOWEVER IMAGING PRESENT TO COMPLETE ULTRASOUND. Pt TO BE ADM TELE 189; WILL F/U APPROPRIATE FOR EVALUATION. THANK YOU.
--- NOTE | 2017-05-21 15:11 | NUR ---
ROOM CHANGED TO [facility].
--- NOTE | 2017-05-21 15:17 | NUR ---
DR FLORES IN ROOM TO LOOK AT RASH ON PTS R ARM, PER DR FLORES PT IS OK TO BE ON CONTACT PERCAUTIONS FOR ?SHINGLES.
--- NOTE | 2017-05-21 15:40 | NUR ---
PT MEDICATED WITH ASPIRIN AND HEPARIN SC PER ORDER AT THIS TIME
--- NOTE | 2017-05-21 16:03 | NUR ---
REPORT GIVEN TO SHIVANI. TRANSPORT BOOKED
--- NOTE | 2017-05-21 16:12 | ULTRASOUND REPORT ---
EXAMINATION: DUPLEX BILATERAL CAROTID ULTRASOUND CLINICAL INFORMATION: TIA. COMPARISON: None. TECHNIQUE: Duplex bilateral carotid US was performed using real-time ultrasound and Doppler techniques (integrating B-mode 2D vascular images, Doppler spectral analysis and color flow Doppler imaging). These techniques were utilized to interrogate the extracranial carotid and vertebral arteries bilaterally. The degree of stenosis is based off criteria similar to NASCET. FINDINGS: No plaque is seen at the carotid bifurcations or within the internal carotid arteries. All velocities are within normal limits. ADDITIONAL FINDINGS: The vertebral arteries show antegrade flow. The external carotid arteries show no significant stenosis. IMPRESSION: No evidence of a hemodynamically significant stenosis involving the internal carotid arteries.
--- NOTE | 2017-05-21 16:43 | NUR ---
PT WILL GO TO MRI AND THEN TO FLOOR. SALAZAR SNEED TO GO WITH PT FOR MONITORING. PT ON BILLING REP. FAMILY REMOVING PUMP FROM PT AT THIS TIME.
--- NOTE | 2017-05-21 17:03 | Cons- Infect Disease ---
General Information and HPI Consulting Request Date of Consult: 05/21/17 Requested By: MANNY ALEMAN MD Reason for Consult: Rule out herpes zoster right upper extremity Source of Information: patient, family History of Present Illness: This is an 87-year-old woman with a history of Parkinson's disease, on an infusion pump 16 hours a day, hypertension, status post 2 TIAs in the past, hypothyroidism, COPD and recent falls, with the development of a rash on her right upper extremity one day prior to admission admitted today after she was brought to the emergency room because of an episode of unresponsiveness this morning lasting 5 minutes and associated with a left facial droop and questionable seizure activity. On arrival to the emergency room she was afebrile, alert but disoriented to place and time.. Laboratory data revealed a white blood cell count of 6000, BUN/creatinine 16 and 0.5, with normal liver enzymes. Urinalysis 5-10 WBCs. Chest x-ray was negative. CT of the head was negative for any acute process. Presently she feels well with no complaints. Allergies/Medications Allergies: Coded Allergies: prochlorperazine (From COMPAZINE) (Severe, ANAPHYLAXIS 02/09/16) prednisone (Intermediate, HALLUCINATIONS 02/09/16) Home Med List: Amlodipine Besylate (Norvasc) 5 MG TABLET 1 TAB PO DAILY HEART (Reported) Brimonidine Tartrate/Timolol (Combigan Eye Drops) 0.2 %-0.5 % DROPS 1 DROP OP BID GLAUCOMA (Reported) Budesonide/Formoterol Fumarate (Symbicort 80-4.5 Mcg Inhaler) 80 MCG-4.5 MCG/ ACTUATION HFA.AER.AD 2 PUF INH BID COPD (Reported) Calcium Carbonate (Calcium) 500 MG CALCIUM (1,250 MG) TAB.CHEW 500 MG PO D SUPPLEMENT (Reported) Carbidopa/Levodopa (Sinemet Cr 50-200 Tablet) 50 MG-200 MG TABLET.ER 1 TAB PO QPM PARKINSONS (Reported) Latanoprost (Xalatan) 0.005 % DROPS 1 GTT OS QPM OCCULAR PRESSURE (Reported) Levothyroxine Sodium 100 MCG TABLET 1 TAB PO DAILY AC THYROID (Reported) Mirabegron (Myrbetriq) 50 MG TAB.ER.24H 1 TAB PO DAILY overactive bladder ( Reported) Tiotropium [place] (Spiriva) 18 MCG CAP.W.DEV 1 CAP INH DAILY PRN SOB ( Reported) Past History Travel History Traveled to [place] past 21 day No Medical History Neurological: Parkinson's disease EENT: NONE Cardiovascular: hypertension Respiratory: asthma, bronchitis Gastrointestinal: NONE Hepatic: NONE Renal: RHABDOMYOLYSIS Musculoskeletal: NONE Psychiatric: NONE Endocrine: hypothyroidism Blood Disorders: NONE Cancer(s): NONE 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 Home Who Do You Live With? 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 Ambulation: walker IADLs Independent: shopping, housework, finances, food prep, telephone, transportation , medication admin. Review of Systems Review of Systems Neurological/Psychological: Reports: weakness. All Other Systems: Reviewed and Negative Exam & Diagnostic Data Last 24 Hrs of Vital Signs/I&O Vital Signs Date Time Temp Pulse Resp B/P B/P Pulse O2 O2 Flow FiO2 Mean Ox Delivery Rate 05/21 1603 98.6 73 18 122/84 98 Room Air 05/21 1311 98.2 75 18 126/76 97 Room Air 05/21 1052 98.3 64 18 100/67 95 Room Air 05/21 0855 95 Room Air 05/21 0845 97.3 80 20 120/78 96 Room Air Intake & Output 05/21 1600 05/21 0800 05/21 0000 Intake Total Output Total Balance Patient 125 lb Weight Weight Reported by Patient Measurement Method Physical Exam Other Physical Findings: She is awake and alert, disoriented to time, but in no acute distress. She is afebrile. Skin reveals a rosacea like rash on her face; maculopapular rash on her right upper extremity in the C5/C6 dermatome involving the forearm and extending to the shoulder. HEENT exam is negative. Neck is supple with no adenopathy. Lungs are clear. Heart regular rhythm with no murmur. Abdomen is soft, nontender with positive bowel sounds. Back no CVA tenderness. Extremities no cyanosis, clubbing or edema. Neuro mild left lower extremity weakness. Last 24 Hours of Lab Results: Laboratory Tests 05/21 05/21 1151 0905 Chemistry Lactic Acid Cancelled Urines Urine Color (YEL,AMB,STR) YEL Urine Clarity (CLEAR) CLEAR Urine pH (5.0 - 8.0) 6.5 Ur Specific [place] (1.001 - 1.035) 1.020 Urine Protein (NEG,<30 MG/DL) TRACE H Urine Ketones (NEG) 15 H Urine Nitrite (NEG) NEG Urine Bilirubin (NEG) NEG Urine Urobilinogen (0.1 - 1.0 EU/dl) 0.2 Ur Leukocyte Esterase (NEG) TRACE H Ur Microscopic SEDIMENT EXAMINED Urine WBC (0 - 2 /HPF) 5-10 H Ur Epithelial Cells (NONE,FEW) FEW Urine Bacteria (NEG/NONE) FEW H Hyaline Casts (0/LPF) 1-3 H Urine Hemoglobin (NEG) NEG Urine Glucose (N MG/DL) NEG 05/21 0859 Chemistry Sodium (137 - 145 mmol/L) 138 Potassium (3.5 - 5.1 mmol/L) 4.3 Chloride (98 - 107 mmol/L) 101 Carbon Dioxide (22 - 30 mmol/L) 27 Anion Gap (5 - 16) 11 BUN (7 - 17 mg/dL) 16 Creatinine (0.5 - 1.0 mg/dL) 0.5 Estimated GFR (>60 ml/min) > 60 BUN/Creatinine Ratio (7 - 25 %) 32.0 H Glucose (65 - 99 mg/dL) 190 H Hemoglobin A1c (4.2 - 5.8 %) 6.0 H Lactic Acid (0.7 - 2.1 mmol/L) 1.8 Calcium (8.4 - 10.2 mg/dL) 9.1 Total Bilirubin (0.2 - 1.3 mg/dL) 0.8 AST (14 - 36 U/L) 20 ALT (9 - 52 U/L) 20 Alkaline Phosphatase (<127 U/L) 85 Creatine Kinase (30 - 135 U/L) 91 Troponin I (< 0.11 ng/ml) < 0.01 Total Protein (6.3 - 8.2 g/dL) 7.0 Albumin (3.5 - 5.0 g/dL) 4.0 Globulin (1.9 - 4.2 gm/dL) 3.0 Albumin/Globulin Ratio (1.1 - 2.2 %) 1.3 Lipase (23 - 300 U/L) 69 Vitamin B12 (239 - 931 pg/mL) Pending TSH (0.270 - 4.200 uIU/mL) 2.870 Free T4 (0.85 - 1.93 ng/dL) 1.54 Prolactin (3.0 - 18.6 ng/mL) 18.8 H Hematology CBC w Diff NO MAN DIFF REQ WBC (4.8 - 10.8 /CUMM) 5.5 RBC (4.20 - 5.40 /CUMM) 4.25 Hgb (12.0 - 16.0 G/DL) 13.6 Hct (37 - 47 %) 40.8 MCV (81.0 - 99.0 FL) 96.0 MCH (27.0 - 31.0 PG) 32.0 H RDW (11.5 - 14.5 %) 13.4 Plt Count (130 - 400 /CUMM) 223 MPV (7.4 - 10.4 FL) 8.6 Gran % (42.2 - 75.2 %) 76.7 H Lymphocytes % (20.5 - 51.1 %) 13.1 L Monocytes % (1.7 - 9.3 %) 7.9 Eosinophils % (0 - 5 %) 1.8 Basophils % (0.0 - 2.0 %) 0.5 Absolute Granulocytes (1.4 - 6.5 /CUMM) 4.2 Absolute Lymphocytes (1.2 - 3.4 /CUMM) 0.7 L Absolute Monocytes (0.10 - 0.60 /CUMM) 0.4 Absolute Eosinophils (0.0 - 0.7 /CUMM) 0.1 Absolute Basophils (0.0 - 0.2 /CUMM) 0 PUBS MCHC (33.0 - 37.0 G/DL) 33.3 Serology HIV 1&2 Ab Western Blot (NONREACTIVE) Pending Last 24 Hours of [place] Results: Urine culture May 21 pending Diagnostic Data Recent Imaging Findings: Chest x-ray May [address] of the head May 21 reveals a small focus of hypoattenuation within the left cerebellar hemisphere, likely represent a small infarct, unchanged from previous imaging, with no evidence of any new infarct Assessment/Plan Assessment/Plan Impression: This is an 87-year-old woman with a history of Parkinson's disease, status post 2 TIAs, with frequent falls recently, found to have a rash on her right upper extremity one day prior to admission admitted today after an episode this morning of unresponsiveness, lasting 5 minutes, associated with a left facial droop and possible seizure activity, now apparently back to her baseline but with evidence of a maculopapular rash on her right upper extremity. This rash does correspond roughly to the C5/C6 dermatome and is suggestive of possible Herpes zoster, though there are no definite vesicles at this time. The etiology of her episode of unresponsiveness this morning is unclear. It could represent a TIA or a seizure and, with suspected herpes zoster, the possibility of an encephalitis secondary to this organism may need to be considered, particularly if she develops recurrent neurologic symptoms. Suggestion: 1. Standard precautions for localized herpes zoster 2. Would do a Tzanck prep and submit a specimen from one of her lesions for PCR for VZV if she develops vesicles 3. Consider lumbar puncture if her mental status deteriorates 4. Neurology evaluation 5. Begin Valacyclovir 1 gram po every 12 hours Consult Acknowledgment - Thank you for your consult request.
[2017-05-21 18:00] VITALS: BP 130/62
--- NOTE | 2017-05-21 18:02 | Cons- Neurology ---
General Information and HPI Consulting Request Date of Consult: 05/21/17 Requested By: LOVE ROSE,MANNY Reason for Consult: Unresponsive episode with shaking Source of Information: patient, old records, Resident MD Exam Limitations: unable to give history History of Present Illness: 87-year-old woman with Parkinson's disease for many years now followed by Dr. Chamorro in [place] treated with a levodopa infusion pump tells me she didn't feel well since awakening this morning. The malaise was nonspecific, she denies pain headache, nausea. She admits to feeling may have been somewhat lightheaded or woozy. She has no recall of the event witnessed by her aide at the breakfast table. While seated she became incoherent then developed sudden jerky movements and was shaking, unresponsive to any verbal commands. At this time she feels well, her general malaise has disappeared. Overall doing fairly well with the levodopa pump but has significant difficulty walking at night when the pump was off. She denies frequent lightheadedness or any orthostatic symptoms. She has no history suggestive of TIA or stroke Allergies/Medications Allergies: Coded Allergies: prochlorperazine (From COMPAZINE) (Severe, ANAPHYLAXIS 02/09/16) prednisone (Intermediate, HALLUCINATIONS 02/09/16) Home Med List: Amlodipine Besylate (Norvasc) 5 MG TABLET 1 TAB PO DAILY HEART (Reported) Brimonidine Tartrate/Timolol (Combigan Eye Drops) 0.2 %-0.5 % DROPS 1 DROP OP BID GLAUCOMA (Reported) Budesonide/Formoterol Fumarate (Symbicort 80-4.5 Mcg Inhaler) 80 MCG-4.5 MCG/ ACTUATION HFA.AER.AD 2 PUF INH BID COPD (Reported) Calcium Carbonate (Calcium) 500 MG CALCIUM (1,250 MG) TAB.CHEW 500 MG PO D SUPPLEMENT (Reported) Carbidopa/Levodopa (Sinemet Cr 50-200 Tablet) 50 MG-200 MG TABLET.ER 1 TAB PO QPM PARKINSONS (Reported) Latanoprost (Xalatan) 0.005 % DROPS 1 GTT OS QPM OCCULAR PRESSURE (Reported) Levothyroxine Sodium 100 MCG TABLET 1 TAB PO DAILY AC THYROID (Reported) Mirabegron (Myrbetriq) 50 MG TAB.ER.24H 1 TAB PO DAILY overactive bladder ( Reported) Tiotropium [place] (Spiriva) 18 MCG CAP.W.DEV 1 CAP INH DAILY PRN SOB ( Reported) Current Medications: Current Medications Sig/Cristal Start time Last Medication Dose Route Stop Time Status Admin Acetaminophen 650 MG Q6P PRN 05/21 1315 AC PO Acetaminophen/ 1 TAB Q6P PRN 05/21 1315 AC Hydrocodone Bitart PO Amlodipine Besylate 5 MG DAILY 05/22 1000 AC PO Aspirin 81 MG DAILY 05/22 1000 AC PO Aspirin 0 .STK-MED ONE 05/21 1532 DC PO Aspirin 325 MG ONCE ONE 05/21 1445 DC 05/21 PO 05/21 1446 1530 Atorvastatin Calcium 80 MG 1700 05/21 1700 AC PO Brimonidine Tartrate 1 GTT TID 05/21 1600 AC OPH Budesonide/ 2 PUF BID 05/21 2200 AC Formoterol Fumarate INH Calcium 600 MG BID 05/21 1443 AC PO Carbidopa/Levodopa 1 TAB QPM 05/21 2200 AC PO Heparin Sodium 0 .STK-MED ONE 05/21 1531 DC (Porcine) .ROUTE Heparin Sodium 5,000 UNIT Q8 05/21 1400 AC 05/21 (Porcine) SC 1530 Hydromorphone HCl 0.5 MG Q4P PRN 05/21 1315 AC IV Latanoprost 1 GTT QPM 05/21 2200 AC OPH Levothyroxine Sodium 0.1 MG DAILY AC 05/22 0700 AC PO Mirabegron 50 MG DAILY 05/22 1000 AC PO Tiotropium [place] 1 PUF DAILY PRN 05/21 1500 AC INH Valacyclovir HCl 1,000 MG TID 05/21 1600 AC PO Review of Systems Review of Systems: ROS: A complete medical systems review was obtained. No pertinent complaints other than those in the HPI were found. 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 Home Who Do You Live With? 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 Ambulation: walker IADLs Independent: shopping, housework, finances, food prep, telephone, transportation , medication admin. Exam & Diagnostic Data Vital Signs and I&O Vital Signs Date Time Temp Pulse Resp B/P B/P Pulse O2 O2 Flow FiO2 Mean Ox Delivery Rate 05/21 1603 98.6 73 18 122/84 98 Room Air 05/21 1311 98.2 75 18 126/76 97 Room Air 05/21 1052 98.3 64 18 100/67 95 Room Air 05/21 0855 95 Room Air 05/21 0845 97.3 80 20 120/78 96 Room Air Intake & Output 05/21 1600 05/21 0800 05/21 0000 Intake Total Output Total Balance Patient 125 lb Weight Weight Reported by Patient Measurement Method Physical Exam: On exam the patient appeared generally well and in no distress. No carotid bruits and no cardiac murmur. Transabdominal tube in the left epigastrium between, no redness. No peripheral edema Mental status: Alert, attentive, oriented, no language errors, recall and general fund of knowledge seem intact. Only minimal hypophonia Visual purdy full , Eye movements full without nystagmus, pupils midsize equal round and reactive to light. Facial movement normal Facial sensation normal Hearing mildly reduced bilaterally Uvula elevates midline Tongue protrusion is midline Shoulder shrug symmetric Motor power normal. Tone mildly increased with reinforcement Sensation intact to primary modes Tendon reflexes normal and symmetric without pathologic signs Coordination impairment of fine finger control Gait not tested Last 48 Hours of Lab Results: Laboratory Tests 05/21 05/21 1151 0905 Chemistry Lactic Acid Cancelled Urines Urine Color (YEL,AMB,STR) YEL Urine Clarity (CLEAR) CLEAR Urine pH (5.0 - 8.0) 6.5 Ur Specific [place] (1.001 - 1.035) 1.020 Urine Protein (NEG,<30 MG/DL) TRACE H Urine Ketones (NEG) 15 H Urine Nitrite (NEG) NEG Urine Bilirubin (NEG) NEG Urine Urobilinogen (0.1 - 1.0 EU/dl) 0.2 Ur Leukocyte Esterase (NEG) TRACE H Ur Microscopic SEDIMENT EXAMINED Urine WBC (0 - 2 /HPF) 5-10 H Ur Epithelial Cells (NONE,FEW) FEW Urine Bacteria (NEG/NONE) FEW H Hyaline Casts (0/LPF) 1-3 H Urine Hemoglobin (NEG) NEG Urine Glucose (N MG/DL) NEG 05/21 0859 Chemistry Sodium (137 - 145 mmol/L) 138 Potassium (3.5 - 5.1 mmol/L) 4.3 Chloride (98 - 107 mmol/L) 101 Carbon Dioxide (22 - 30 mmol/L) 27 Anion Gap (5 - 16) 11 BUN (7 - 17 mg/dL) 16 Creatinine (0.5 - 1.0 mg/dL) 0.5 Estimated GFR (>60 ml/min) > 60 BUN/Creatinine Ratio (7 - 25 %) 32.0 H Glucose (65 - 99 mg/dL) 190 H Hemoglobin A1c (4.2 - 5.8 %) 6.0 H Lactic Acid (0.7 - 2.1 mmol/L) 1.8 Calcium (8.4 - 10.2 mg/dL) 9.1 Total Bilirubin (0.2 - 1.3 mg/dL) 0.8 AST (14 - 36 U/L) 20 ALT (9 - 52 U/L) 20 Alkaline Phosphatase (<127 U/L) 85 Creatine Kinase (30 - 135 U/L) 91 Troponin I (< 0.11 ng/ml) < 0.01 Total Protein (6.3 - 8.2 g/dL) 7.0 Albumin (3.5 - 5.0 g/dL) 4.0 Globulin (1.9 - 4.2 gm/dL) 3.0 Albumin/Globulin Ratio (1.1 - 2.2 %) 1.3 Lipase (23 - 300 U/L) 69 Vitamin B12 (239 - 931 pg/mL) 538 TSH (0.270 - 4.200 uIU/mL) 2.870 Free T4 (0.85 - 1.93 ng/dL) 1.54 Prolactin (3.0 - 18.6 ng/mL) 18.8 H Hematology CBC w Diff NO MAN DIFF REQ WBC (4.8 - 10.8 /CUMM) 5.5 RBC (4.20 - 5.40 /CUMM) 4.25 Hgb (12.0 - 16.0 G/DL) 13.6 Hct (37 - 47 %) 40.8 MCV (81.0 - 99.0 FL) 96.0 MCH (27.0 - 31.0 PG) 32.0 H RDW (11.5 - 14.5 %) 13.4 Plt Count (130 - 400 /CUMM) 223 MPV (7.4 - 10.4 FL) 8.6 Gran % (42.2 - 75.2 %) 76.7 H Lymphocytes % (20.5 - 51.1 %) 13.1 L Monocytes % (1.7 - 9.3 %) 7.9 Eosinophils % (0 - 5 %) 1.8 Basophils % (0.0 - 2.0 %) 0.5 Absolute Granulocytes (1.4 - 6.5 /CUMM) 4.2 Absolute Lymphocytes (1.2 - 3.4 /CUMM) 0.7 L Absolute Monocytes (0.10 - 0.60 /CUMM) 0.4 Absolute Eosinophils (0.0 - 0.7 /CUMM) 0.1 Absolute Basophils (0.0 - 0.2 /CUMM) 0 PUBS MCHC (33.0 - 37.0 G/DL) 33.3 Serology HIV 1&2 Ab Western Blot (NONREACTIVE) NONREACTIVE Imaging/Other Studies: CT of head: There is no acute intracranial hemorrhage or abnormal extra-axial collection. No intracranial mass effect or midline shift. Lateral and third ventricles are proportionate to the subarachnoid spaces. No hydrocephalus. There is a small focus of hypoattenuation within the left cerebellar hemisphere that most likely represents a small infarct that has remained unchanged from prior imaging. There are numerous foci of nonspecific hypoattenuation throughout the periventricular white matter and basal ganglia that most likely represent a chronic manifestation of small vessel ischemia. Grossly no evidence of acute territorial infarct. Assessment/Plan Assessment: Transient unresponsive episode with shaking in a patient who reports awakening with malaise. No history of previous syncope or seizures. No recent change in medications or doses. The most likely explanation would be a syncopal episode with seizure like activity particularly as the prolactin level is elevated. Parkinson's disease, well-managed on the levodopa pump Recommendations: Admission to telemetry bed, rule out dysrhythmias EEG Would not recommend empiric antiseizure medication Orthostatic blood pressure checks MRI has been ordered Follow-up will be arranged as needed Consult Acknowledgment - Thank you for your consult request.
--- NOTE | 2017-05-21 18:08 | MRI REPORT ---
MR BRAIN WITHOUT CONTRAST CLINICAL INFORMATION: Altered mental status. Question right-sided ptosis. COMPARISON: Head CT performed earlier today. TECHNIQUE: MRI of the brain without contrast was obtained using routine sequences. FINDINGS: There is no hydrocephalus, extra-axial surface collection, or herniation. There are T2 signal changes throughout the supratentorial white matter and central luis, most likely mild to moderate chronic microangiopathy. 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 The major flow voids at the skull base are preserved. There is no acute infarct on diffusion-weighted imaging. There is no intracranial hemorrhage on the gradient recalled echo acquisition. The midline structures are normal. The cerebellar tonsils are normally positioned. The cerebellum and brainstem are normal. The craniocervical junction is normal. Osseous marrow signal intensity is homogenous. The visualized soft tissues are unremarkable. There is a small retention cyst along the floor the right maxillary sinus. The paranasal sinuses are otherwise clear. Mastoid air cells are clear. IMPRESSION: This is a limited very motion degraded examination. No acute infarcts. 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
--- NOTE | 2017-05-21 19:41 | Event Note ---
Event Note Event Note: Got a call back from Dr. Baumann, the patient's primary neurologist at [facility]. He is of the opinion that the patient's blood pressure may have dropped causing the episode of unresponsiveness this AM. He advised us to have the patient check her orthostat vitals (supine and standing) at home (in the event the rest of her workup is negative). Speaking with him reveals that he last saw her in February 2017. Ms. Mitchell has been on the current dose of Cardbidopa for a long time now (~a year). Since the patient has an infusion pump that needs to disconneted at bedtime (at which time the patient receives her oral bed time dose of carbidopa), he advised us to have the nurses call the 24 hr support service at [phone], and have them advise and instruct the nursing staff regarding the technique to disconnecting the pump and including instructions on how to flush. He also advised us to have the pump reconnected in morning at which time the patient will recieve her morning dose of 13mls. Apparently, the nurse just has to push/activate a button after reconnecting the pump at [facility] device delivers the required dose (20mg/ml) and switches automatically to a continuous infusion rate of 4.4ml/hr. If the patient requires an extra dose, she can push the buttton and receive an extra 2ml/hr. I called and conveyed the message to the resident oracle fusion consultant, as well as personally called and spoke to the nurse Lissette, and have given both of them the 24 hr nursing support number.
--- NOTE | 2017-05-21 20:41 | NUR ---
NURSING NOTE THE PT HAS A LEVADOPA/CARBIDOPA PUMP FROM HER CHEST, INTERNALLY TO HER SMALL INTESTINE. THIS IS A TRIAL TREATMENT FROM [place] TO COMBAT HER PARKINSONS. I HAVE NOT LEARNED ABOUT THE ADMINISTRATION PRECEDURE, NOR HAS THE RESIDENT DR. ISELA SHERMAN OR HER ATTENDING (PER HER). I WAS ORDERED TO LET THE CARETAKERS TAKE CARE OF THIS EQUIPMENT AND MEDICATION.
[2017-05-21 23:50] VITALS: BP 132/62
[2017-05-22 06:31] VITALS: BP 140/86
--- NOTE | 2017-05-22 07:21 | PN- Housestaff ---
ISELA SHERMAN 05/22/17 0721: Subjective Follow-up For: Altered mental status History of Parkinsons on continuous infusion pump. Herpes Zoster Complaints: no complaints Tele-Events Since Last Visit: NSR, HR: 70-80. No overnight events. Subjective: Patient seen and exmamined ast bedside. She is sitting comofrtably in bed. Denies any chest pain, shortness of breath. She is oriented to place and person today. Continues to remain afebirle. Was srestarted on her infusion pump this AM. Review of Systems Constitutional: Denies: chills, fever, malaise. EENTM: Denies: visual changes. Cardiovascular: Denies: chest pain, orthopena, palpitations, peripheral edema. Respiratory: Denies: cough, short of breath, sputum production. Gastrointestinal: Denies: abdominal pain, constipation, diarrhea, nausea, vomiting. Genitourinary: Reports: no symptoms. Neurological/Psychological: Denies: headache, numbness, tingling, tremors. Objective Last 24 Hrs of Vital Signs/I&O Vital Signs Date Time Temp Pulse Resp B/P B/P Pulse O2 O2 Flow FiO2 Mean Ox Delivery Rate 05/22 0631 98.0 72 20 140/86 97 Room Air 05/21 2350 98.8 75 20 132/62 96 Room Air 05/21 1800 97.9 76 20 130/62 97 05/21 1603 98.6 73 18 122/84 98 Room Air 05/21 1311 98.2 75 18 126/76 97 Room Air 05/21 1052 98.3 64 18 100/67 95 Room Air 05/21 0855 95 Room Air 05/21 0845 97.3 80 20 120/78 96 Room Air Intake & Output 05/22 0800 05/22 0000 05/21 1600 Intake Total 120 120 Output Total 200 Balance 120 -80 Intake, Oral 120 120 Output, Urine 200 Patient 125 lb 125 lb Weight Weight Reported by Patient Reported by Patient Measurement Method Physical Exam General Appearance: Alert, Cooperative, No Acute Distress, oriented to place and person now. HEENT: Atraumatic, PERRLA, EOMI, Mucous Membr. moist/pink Neck: Supple, No JVD, No thryomegaly, +2 Carotid Pulse wo Bruit, No LAD Cardiovascular: Normal S1, Normal S2, No Murmurs Lungs: Clear to Auscultation, Normal Air Movement Abdomen: Normal Bowel Sounds, Soft, No Tenderness Neurological: Normal Speech, Sensation Intact, Cranial Nerves 3-12 NL, Reflexes 2+, strength normal in all 4 extermities, with cogwheel rigidity noted. Extremities: No Edema, No Tenderness/Swelling Vascular: Normal Pulses Current Medications: Current Medications Sig/Cristal Start time Last Medication Dose Route Stop Time Status Admin Acetaminophen 650 MG Q6P PRN 05/21 1315 AC PO Acetaminophen/ 1 TAB Q6P PRN 05/21 1315 AC Hydrocodone Bitart PO Amlodipine Besylate 5 MG DAILY 05/22 1000 AC PO Aspirin 81 MG DAILY 05/22 1000 AC PO Aspirin 0 .STK-MED ONE 05/21 1532 DC PO Aspirin 325 MG ONCE ONE 05/21 1445 DC 05/21 PO 05/21 1446 1530 Atorvastatin Calcium 80 MG 1700 05/21 1700 AC PO Brimonidine Tartrate 1 GTT TID 05/21 1600 AC 05/21 OPH 2150 Budesonide/ 2 PUF BID 05/21 2200 AC 05/21 Formoterol Fumarate INH 2150 Calcium 600 MG BID 05/21 1443 AC 05/21 PO 2150 Carbidopa/Levodopa 1 TAB QPM 05/21 2200 AC 05/21 PO 2151 Heparin Sodium 0 .STK-MED ONE 05/21 1531 DC (Porcine) .ROUTE Heparin Sodium 5,000 UNIT Q8 / 1400 AC 05/22 (Porcine) SC 0529 Hydromorphone HCl 0.5 MG Q4P PRN 05/21 1315 AC IV Latanoprost 1 GTT QPM 05/21 2200 AC 05/21 OPH 2157 Levothyroxine Sodium 0.1 MG DAILY AC 05/22 0700 AC 05/22 PO 0530 Mirabegron 50 MG DAILY 05/22 1000 AC PO Tiotropium [place] 1 PUF DAILY PRN 05/21 1500 AC INH Valacyclovir HCl 1,000 MG TID 05/21 1600 AC 05/21 PO 2150 Last 24 Hrs of Lab/Deangelo Results Last 24 Hrs of Labs/Mics: Laboratory Tests 05/21/17 1151: Lactic Acid Cancelled 05/21/17 0905: Urine Color YEL, Urine Clarity CLEAR, Urine pH 6.5, Ur Specific [place] 1.020, Urine Protein TRACE H, Urine Ketones 15 H, Urine Nitrite NEG, Urine Bilirubin NEG, Urine Urobilinogen 0.2, Ur Leukocyte Esterase TRACE H, Ur Microscopic SEDIMENT EXAMINED, Urine WBC 5-10 H, Ur Epithelial Cells FEW, Urine Bacteria FEW H, Hyaline Casts 1-3 H, Urine Hemoglobin NEG, Urine Glucose NEG 05/21/17 0859: Anion Gap 11, Estimated GFR > 60, BUN/Creatinine Ratio 32.0 H, Glucose 190 H, Hemoglobin A1c 6.0 H, Lactic Acid 1.8, Calcium 9.1, Total Bilirubin 0.8, AST 20 , ALT 20, Alkaline Phosphatase 85, Creatine Kinase 91, Troponin I < 0.01, Total Protein 7.0, Albumin 4.0, Globulin 3.0, Albumin/Globulin Ratio 1.3, Lipase 69, Vitamin B12 538, TSH 2.870, Free T4 1.54, Prolactin 18.8 H, CBC w Diff NO MAN DIFF REQ, RBC 4.25, MCV 96.0, MCH 32.0 H, RDW 13.4, MPV 8.6, Gran % 76.7 H, Lymphocytes % 13.1 L, Monocytes % 7.9, Eosinophils % 1.8, Basophils % 0.5, Absolute Granulocytes 4.2, Absolute Lymphocytes 0.7 L, Absolute Monocytes 0.4, Absolute Eosinophils 0.1, Absolute Basophils 0, PUBS MCHC 33.3, HIV 1&2 Ab Western Blot NONREACTIVE Microbiology 05/21 905 URINE ROUT: Urine Culture - RECD Orders Radiology Findings: SERVICE DATE: 05/21/17- EXAM TYPE: US - [id number] DOPPLER FINDINGS: No plaque is seen at the carotid bifurcations or within the internal carotid arteries. All velocities are within normal limits. ADDITIONAL FINDINGS: The vertebral arteries show antegrade flow. The external carotid arteries show no significant stenosis. IMPRESSION: No evidence of a hemodynamically significant stenosis involving the internal carotid arteries. SERVICE DATE: 05/21/17- EXAM TYPE: MRI - MRI-HEAD W/O [place] FINDINGS: There is no hydrocephalus, extra-axial surface collection, or herniation. There are T2 signal changes throughout the supratentorial white matter and central luis, most likely mild to moderate chronic microangiopathy. 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 The major flow voids at the skull base are preserved. There is no acute infarct on diffusion-weighted imaging. There is no intracranial hemorrhage on the gradient recalled echo acquisition. The midline structures are normal. The cerebellar tonsils are normally positioned. The cerebellum and brainstem are normal. The craniocervical junction is normal. Osseous marrow signal intensity is homogenous. The visualized soft tissues are unremarkable. There is a small retention cyst along the floor the right maxillary sinus. The paranasal sinuses are otherwise clear. Mastoid air cells are clear. IMPRESSION: This is a limited very motion degraded examination. No acute infarcts. 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 SERVICE DATE: 05/21/17 EXAM TYPE: RAD - XRY-PORTABLE CHEST XRAY FINDINGS: No focal consolidation, pulmonary edema, or pleural effusion. Stable cardiomediastinal silhouette. IMPRESSION: No acute cardiopulmonary findings. No change. SERVICE DATE: 05/21/17 EXAM TYPE: CAT - CT HEAD WO IV CONTRAST Assessment/Plan Assessment: 87-year-old woman with a past medical history of Parkinson's, TIA, hypothyroidism, hypertension, COPD who was brought in by ambulance from home with chief complaints of altered mentation. Vitals at the time of admission blood pressure 100/67, respiratory rate of 18, pulse 64, afebrile saturating 95% on room air. Labs pertinent for normal white blood cell count 5500, H&H of 13.6/40.8, MCV of 96.0. Platelet count is within normal limits at 2 23,000. Serum chemistries revealed a sodium of 138, potassium of 4.3, normal bicarbonate, BUN 16 with a creatinine of 0.5. Serum glucose elevated to 190. Lactic acid within normal limits at 1.8. LFTs unremarkable with an AST/alt of 20/20, alkaline phosphatase of 85, total bili of 0.8% of troponin negative less than 0.01. Serum lipase within normal limits at 69. UA revealed trace amount of proteinuria, 15 ketones , trace amount of leukocyte esterase, 5-10 white blood cells, 1-3 hyaline casts. Chest x-ray revealed: No acute cardiopulmonary findings. No change. EKG revealed: NSR, HR: 68; normal axis, no ST-T changes. Head CT showed numerous chronic findings essentially unchanged when compared to the CT done back in June 2016. No evidence of acute territorial infarct or hemorrhage. There is a small focus of hypoattenuation within the left cerebellar hemisphere that most likely represents a small infarct that has remained unchanged from prior imaging. There are numerous foci of nonspecific hypoattenuation throughout the periventricular white matter and basal ganglia that most likely represent a chronic manifestation of small vessel ischemia. Grossly no evidence of acute territorial infarct. The calvarium and skull base are intact. Mastoid air cells and middle ear cavities are well-aerated. Paranasal sinuses are well-aerated. Hardware along the lateral margin of the right globe is unchanged. Assessment and Plan: Will make her an admission to telemetry. #Altered mental status Most likley 2/2 worsening Parkinsons, with ? seizure, unlikely metabolic given normal electrolytes for now, could be 2/2 encephalitis from herpes zoster Seems to be resolving Consider LP if neuro status worsens for concern for herpes encephalitis. Workup for TIA so far remains negative. F/U echocardiogram, EEG, and orthostatic vitals. HbA1c id 6.0 as her FSG was elvated to 190. Neuro on board. F/U ercommendations. Formal PT and speech therapy. Cristhiani on fall and seizure precautions. #Herpes Zoster Unlikley she has Runt-[place]sey Will start her on Valtrex 1000mg BID for 7 days renally adjusted. ID on board F/U recs. Of note for localized zoster, she just needs to be on standard precautions. Her HIV was negative. #Hx of Parkisnons. On infusion pump that the health aide knows how to hold and disconnect and maniputae with. Continue on infusion pump fo rnow, and Carbidopa-Levodopa 50/200 at bedtime for now. Called Dr. Baumann's office, have documented instructions in event note. #HTN Continue Amlodipine 5 mg daily. #Hypothyroidism Continue Levothyroxine 0.1mg # COPD not on home oxygen - Continue Spiriva and Symbicort # Hyperactive urinary bladder Continue home dose of Myrbetriq - Diet Regular Await formal swallow eval - DVT Prophylaxis - Heparin 5000IU TID SC - Code Status - Full Code. Problem List: 1. Seizure 2. Shingles rash Pain Ratin Pain Location: n/a Pain Goal: Remain pain free Pain Plan: tylenol Tomorrow's Labs & Rationales: n/a MANNY ALEMAN 05/22/17 0946: Attending MD Review Statement Attending Statement Attending MD Statement: examined this patient, discuss w/resident/PA/INPATIENT SERVICES RN, agreed w/resident/PA/INPATIENT SERVICES RN, discussed with family, reviewed EMR data (avail), discussed with nursing, discussed with case mgmt, reviewed images, amended to note Attending Assessment/Plan: 87 o/f poor historian with pmh of parkinson disease on carbidopa/levadopa as outpatient followed by neurology at [facility], comes with altered mental status and rash on right arm with abnormal movements of arms. vital stable, PE with rash otherwise unremarkable. ASSESSMENT 1. Encephalopathy r/o seizure vs TIA no focal deficit improving 2. Shingles infection localised 3. Parkinson disease on carbidopa/levadopa 4. hypothyroidism 5. copd stable 6. Orthostasis hypotension PLAN monitor telemetry monitoring, frequent neurochecks, ID consulted valtrex as per ID. MRI brain negative, chronic lacunar infarcts, Neurology consulted, EEG recommended resume home meds, pump as per Dr Baumann, d/wed house staff CPKs wnl, EEG f/u, carotid USG wnl. resume home meds gi/dvt prophyalxis.
[2017-05-22 08:50] LABS: ABSOLUTE BASOPHIL COUNT 0 /CUMM (0.0-0.2); ABSOLUTE EOSINOPHIL COUNT 0.1 /CUMM (0.0-0.7); ABSOLUTE GRANULOCYTE CT 3.1 /CUMM (1.4-6.5); ABSOLUTE LYMPH COUNT 0.9 /CUMM (1.2-3.4); ABSOLUTE MONOCYTE COUNT 0.6 /CUMM (0.10-0.60); BASOPHIL % 0.5 % (0.0-2.0); EOSINOPHIL % 1.9 % (0-5); GRANULOCYTE % 65.1 % (42.2-75.2); HEMATOCRIT 40.6 % (37-47); MEAN CORPUSCULAR HGB 32.2 PG (27.0-31.0); MEAN CORPUSCULAR HGB CONC 33.3 G/DL (33.0-37.0); MEAN CORPUSCULAR VOLUME 96.9 FL (81.0-99.0); MEAN PLATELET VOLUME 8.4 FL (7.4-10.4); PLATELET COUNT 220 /CUMM (130-400); RBC DISTRIBUTION WIDTH 13.7 % (11.5-14.5); RED BLOOD CELL CT 4.19 /CUMM (4.20-5.40); WHITE BLOOD CELL COUNT 4.7 /CUMM (4.8-10.8)
--- NOTE | 2017-05-22 12:35 | PN- Infect Dx ---
Subjective Subjective: Afebrile without complaints Objective Last 24 Hrs of Vital Signs/I&O Vital Signs Date Time Temp Pulse Resp B/P B/P Pulse O2 O2 Flow FiO2 Mean Ox Delivery Rate 05/22 0941 140/86 05/22 0631 98.0 72 20 140/86 97 Room Air 05/21 2350 98.8 75 20 132/62 96 Room Air 05/21 1800 97.9 76 20 130/62 97 05/21 1603 98.6 73 18 122/84 98 Room Air 05/21 1311 98.2 75 18 126/76 97 Room Air Intake & Output 05/22 1600 05/22 0800 05/22 0000 Intake Total 120 120 Output Total 200 Balance 120 -80 Intake, Oral 120 120 Output, Urine 200 Patient 125 lb Weight Weight Reported by Patient Measurement Method Physical Exam Other Physical Findings: She appears comfortable in no acute distress Skin papular/vesicular lesions on the right upper extremity Lungs bibasilar crackles Heart regular rhythm with no murmur Neuro without change Results Last 24 Hours of Lab Results: Laboratory Tests 05/22 748 Chemistry Sodium (137 - 145 mmol/L) 138 Potassium (3.5 - 5.1 mmol/L) 4.2 Chloride (98 - 107 mmol/L) 101 Carbon Dioxide (22 - 30 mmol/L) 27 Anion Gap (5 - 16) 10 BUN (7 - 17 mg/dL) 17 Creatinine (0.5 - 1.0 mg/dL) 0.5 Estimated GFR (>60 ml/min) > 60 BUN/Creatinine Ratio (7 - 25 %) 34.0 H Hematology CBC w Diff NO MAN DIFF REQ WBC (4.8 - 10.8 /CUMM) 4.7 L RBC (4.20 - 5.40 /CUMM) 4.19 L Hgb (12.0 - 16.0 G/DL) 13.5 Hct (37 - 47 %) 40.6 MCV (81.0 - 99.0 FL) 96.9 MCH (27.0 - 31.0 PG) 32.2 H RDW (11.5 - 14.5 %) 13.7 Plt Count (130 - 400 /CUMM) 220 MPV (7.4 - 10.4 FL) 8.4 Gran % (42.2 - 75.2 %) 65.1 Lymphocytes % (20.5 - 51.1 %) 19.5 L Monocytes % (1.7 - 9.3 %) 13.0 H Eosinophils % (0 - 5 %) 1.9 Basophils % (0.0 - 2.0 %) 0.5 Absolute Granulocytes (1.4 - 6.5 /CUMM) 3.1 Absolute Lymphocytes (1.2 - 3.4 /CUMM) 0.9 L Absolute Monocytes (0.10 - 0.60 /CUMM) 0.6 Absolute Eosinophils (0.0 - 0.7 /CUMM) 0.1 Absolute Basophils (0.0 - 0.2 /CUMM) 0 PUBS MCHC (33.0 - 37.0 G/DL) 33.3 Last 24 Hours of Deangelo Results: Urine culture May 21 negative Recent Imaging Studies: MRI of the head May 21 no acute infarcts Carotid Dopplers May 21 no evidence of any hemodynamically significant stenosis of the internal carotid arteries Assessment/Plan Impression: Stable with temperatures and white blood cell count remaining normal on Valacyclovir Day 1 of treatment for presumed herpes zoster of the C5/C6 dermatome. Her neurologic exam is stable, with MRI results noted and Neurology evaluation appreciated. Suggestion: 1. Standard precautions for localized herpes zoster 2. Would do a Tzanck prep and submit a specimen from one of her lesions for PCR for VZV if able 3. Continue Valacyclovir for 1 week
--- NOTE | 2017-05-22 15:17 | ELECTROENCEPHALOGRAM REPORT ---
Electroencephalogram Report Electroencephalogram Results Date of service: 05/22/17 Attending MD: LOVE ROSE,MANNY Exterior Door Installer: Barbara Carlos Test Utilizes: 10-20 system, 21 lead 18 channel digital recording Pertinent Hx/Physical/Neuro Findings/Clin Diagnosis: syncope r/o seizure Inpatient Medications: Current Medications Sig/Cristal Start time Last Medication Dose Route Stop Time Status Admin Acetaminophen 650 MG Q6P PRN 05/21 1315 AC PO Acetaminophen/ 1 TAB Q6P PRN 05/21 1315 AC Hydrocodone Bitart PO Amlodipine Besylate 5 MG DAILY 05/22 1000 AC 05/22 PO 0941 Aspirin 81 MG DAILY 05/22 1000 AC 05/22 PO 0938 Aspirin 0 .STK-MED ONE 05/21 1532 DC PO Atorvastatin Calcium 80 MG 1700 05/21 1700 AC PO Brimonidine Tartrate 1 GTT TID 05/21 1600 AC 05/22 OPH 0940 Budesonide/ 2 PUF BID 05/21 2200 AC 05/22 Formoterol Fumarate INH 0938 Calcium 600 MG BID 05/21 1443 AC 05/22 PO 0937 Carbidopa/Levodopa 1 TAB QPM 05/21 2200 AC 05/21 PO 2151 Heparin Sodium 0 .STK-MED ONE 05/21 1531 DC (Porcine) .ROUTE Heparin Sodium 5,000 UNIT Q8 05/21 1400 AC 05/22 (Porcine) SC 0529 Hydromorphone HCl 0.5 MG Q4P PRN 05/21 1315 AC IV Latanoprost 1 GTT QPM 07/ 2200 AC 05/21 OPH 2157 Levothyroxine Sodium 0.1 MG DAILY AC 05/22 0700 AC 05/22 PO 0530 Mirabegron 50 MG DAILY 05/22 1000 AC 05/22 PO 0936 Tiotropium [place] 1 PUF DAILY PRN 05/21 1500 AC INH Valacyclovir HCl 1,000 MG BID 05/22 2200 AC PO Valacyclovir HCl 1,000 MG TID 05/21 1600 DC 05/22 PO 0936 Interpretation: EEG in wake and dri=owsy states The background is 7 cps activity while awake In drowsy stare, background is 5-7 cps activity Photic stim: no abnormalities No epileptiform activity noted Impression: Imp: normal EEG in wake and drowsy states
[2017-05-22 17:00] VITALS: BP 110/70
--- NOTE | 2017-05-22 19:29 | PN- Neurology ---
Subjective Subjective: No further events litle recall of event son states she seemed to be vacant, then shook for 1-2 minutes. Episode repeated , then patient came to without confusion Review of Systems: no vertigo Objective Vital Signs and I&Os Vital Signs Date Time Temp Pulse Resp B/P B/P Pulse O2 O2 Flow FiO2 Mean Ox Delivery Rate 05/22 1700 98.2 95 20 110/70 95 Room Air 05/22 0941 140/86 05/22 0631 98.0 72 20 140/86 97 Room Air 05/21 2350 98.8 75 20 132/62 96 Room Air Intake & Output 05/22 1600 05/22 0800 05/22 0000 05/21 1600 05/21 0800 05/21 0000 Intake Total 120 120 Output Total 200 Balance 120 -80 Intake, Oral 120 120 Output, Urine 200 Patient 125 lb 125 lb Weight Weight Reported by Patient Reported by Patient Measurement Method Physical Exam: alert comfortable EOM full no dysarthria coord normal upper extremities no loss of strenght upper extremities Current Medications: Current Medications Sig/Cristal Start time Last Medication Dose Route Stop Time Status Admin Acetaminophen 650 MG Q6P PRN 05/21 1315 AC PO Acetaminophen/ 1 TAB Q6P PRN 05/21 1315 AC Hydrocodone Bitart PO Amlodipine Besylate 5 MG DAILY 05/22 1000 AC 05/22 PO 0941 Aspirin 81 MG DAILY 05/22 1000 AC 05/22 PO 0938 Atorvastatin Calcium 80 MG 1700 05/21 1700 AC 05/22 PO 1638 Brimonidine Tartrate 1 GTT TID 05/21 1600 AC 05/22 OPH 1643 Budesonide/ 2 PUF BID 05/21 2200 AC 05/22 Formoterol Fumarate INH 0938 Calcium 600 MG BID 05/21 1443 AC 05/22 PO 0937 Carbidopa/Levodopa 1 TAB QPM 05/21 2200 AC 05/21 PO 2151 Diphenhydramine HCl 1 MANOLO BID 05/22 2200 AC TOP Heparin Sodium 5,000 UNIT Q8 05/21 1400 AC 05/22 (Porcine) SC 1639 Hydromorphone HCl 0.5 MG Q4P PRN 05/21 1315 AC IV Latanoprost 1 GTT QPM 05/21 2200 AC 05/21 OPH 2157 Levothyroxine Sodium 0.1 MG DAILY AC 05/22 0700 AC 05/22 PO 0530 Mirabegron 50 MG DAILY 05/22 1000 AC 05/22 PO 0936 Tiotropium [place] 1 PUF DAILY PRN 05/21 1500 AC INH Valacyclovir HCl 1,000 MG BID 05/22 2200 AC PO Valacyclovir HCl 1,000 MG TID 05/21 1600 DC 05/22 PO 0936 Assessment/Plan Assessment: likely convulsive syncope EEG did not show epileptogenic abnormalitiesd Plan: consider quality assurance monitor chassis on discharge
[2017-05-22 23:00] VITALS: BP 142/70
--- NOTE | 2017-05-23 06:48 | PN- Housestaff ---
See Addendum Subjective Follow-up For: Altered mental status History of Parkinsons on continuous infusion pump. Herpes Zoster Complaints: no complaints Tele-Events Since Last Visit: Sinus rythm 76-80. No events overnight. Subjective: Patient seen and examined at bedside. She has no complaints. Her workup for seizures and TIA has so far been negative. She is alert to person and place. Continues to remain afebrile. Review of Systems Constitutional: Denies: chills, fever. Cardiovascular: Denies: chest pain, orthopena, palpitations. Respiratory: Denies: cough, orthopnea, short of breath. Gastrointestinal: Denies: abdominal pain, constipation, diarrhea, nausea, vomiting. Genitourinary: Reports: no symptoms. Neurological/Psychological: Denies: headache, numbness, tingling, tremors. Objective Last 24 Hrs of Vital Signs/I&O Vital Signs Date Time Temp Pulse Resp B/P B/P Pulse O2 O2 Flow FiO2 Mean Ox Delivery Rate 05/22 2300 97.8 78 20 142/70 97 Room Air 05/22 1700 98.2 95 20 110/70 95 Room Air 05/22 0941 140/86 Intake & Output 05/23 0800 05/23 0000 05/22 1600 Intake Total 450 300 Output Total Balance 450 300 Intake, Oral 450 300 Physical Exam General Appearance: Alert, Oriented X3, Cooperative, No Acute Distress HEENT: Atraumatic, PERRLA, EOMI, Mucous Membr. moist/pink Neck: Supple, No JVD, No thryomegaly, +2 Carotid Pulse wo Bruit, No LAD Cardiovascular: Regular Rate, Normal S1, Normal S2, No Murmurs Lungs: Clear to Auscultation, Normal Air Movement Abdomen: Normal Bowel Sounds, Soft, No Tenderness Neurological: Normal Speech Extremities: No Clubbing, No Cyanosis, No Edema, Normal Pulses, No Tenderness/ Swelling Current Medications: Current Medications Sig/Cristal Start time Last Medication Dose Route Stop Time Status Admin Acetaminophen 650 MG Q6P PRN 05/21 1315 AC PO Acetaminophen/ 1 TAB Q6P PRN 05/21 1315 AC Hydrocodone Bitart PO Amlodipine Besylate 5 MG DAILY 05/22 1000 AC 05/22 PO 0941 Aspirin 81 MG DAILY 05/22 1000 AC 05/22 PO 0938 Atorvastatin Calcium 80 MG 1700 05/21 1700 AC 05/22 PO 1638 Brimonidine Tartrate 1 GTT TID 05/21 1600 AC 05/22 OPH 2050 Budesonide/ 2 PUF BID 05/21 2200 AC 05/22 Formoterol Fumarate INH 2050 Calcium 600 MG BID 05/21 1443 AC 05/22 PO 2050 Carbidopa/Levodopa 1 TAB QPM 05/21 2200 AC 05/22 PO 2049 Diphenhydramine HCl 1 MANOLO BID 05/22 2200 AC TOP Heparin Sodium 5,000 UNIT Q8 05/21 1400 AC 05/23 (Porcine) SC 0624 Hydromorphone HCl 0.5 MG Q4P PRN 05/21 1315 AC IV Latanoprost 1 GTT QPM 05/21 2200 AC 05/22 OPH 2050 Levothyroxine Sodium 0.1 MG DAILY AC 05/22 0700 AC 05/23 PO 0624 Loratadine 10 MG DAILY 05/22 1935 AC 05/22 PO 2050 Mirabegron 50 MG DAILY 05/22 1000 AC 05/22 PO 0936 Tiotropium [place] 1 PUF DAILY PRN 05/21 1500 AC INH Valacyclovir HCl 1,000 MG BID 05/22 220 AC 05/22 PO 2050 Valacyclovir HCl 1,000 MG TID 05/21 1600 DC 05/22 PO 0936 Last 24 Hrs of Lab/Deangelo Results Last 24 Hrs of Labs/Mics: Laboratory Tests 05/22/17 0748: Anion Gap 10, Estimated GFR > 60, BUN/Creatinine Ratio 34.0 H, CBC w Diff NO MAN DIFF REQ, RBC 4.19 L, MCV 96.9, MCH 32.2 H, RDW 13.7, MPV 8.4, Gran % 65.1 , Lymphocytes % 19.5 L, Monocytes % 13.0 H, Eosinophils % 1.9, Basophils % 0.5 , Absolute Granulocytes 3.1, Absolute Lymphocytes 0.9 L, Absolute Monocytes 0.6 , Absolute Eosinophils 0.1, Absolute Basophils 0, PUBS MCHC 33.3 Assessment/Plan Assessment: 87-year-old woman with a past medical history of Parkinson's, TIA, hypothyroidism, hypertension, COPD who was brought in by ambulance from home with chief complaints of altered mentation. Vitals at the time of admission blood pressure 100/67, respiratory rate of 18, pulse 64, afebrile saturating 95% on room air. Labs pertinent for normal white blood cell count 5500, H&H of 13.6/40.8, MCV of 96.0. Platelet count is within normal limits at 2 23,000. Serum chemistries revealed a sodium of 138, potassium of 4.3, normal bicarbonate, BUN 16 with a creatinine of 0.5. Serum glucose elevated to 190. Lactic acid within normal limits at 1.8. LFTs unremarkable with an AST/alt of 20/20, alkaline phosphatase of 85, total bili of 0.8% of troponin negative less than 0.01. Serum lipase within normal limits at 69. UA revealed trace amount of proteinuria, 15 ketones , trace amount of leukocyte esterase, 5-10 white blood cells, 1-3 hyaline casts. Chest x-ray revealed: No acute cardiopulmonary findings. No change. EKG revealed: NSR, HR: 68; normal axis, no ST-T changes. Head CT showed numerous chronic findings essentially unchanged when compared to the CT done back in June 2016. No evidence of acute territorial infarct or hemorrhage. There is a small focus of hypoattenuation within the left cerebellar hemisphere that most likely represents a small infarct that has remained unchanged from prior imaging. There are numerous foci of nonspecific hypoattenuation throughout the periventricular white matter and basal ganglia that most likely represent a chronic manifestation of small vessel ischemia. Grossly no evidence of acute territorial infarct. The calvarium and skull base are intact. Mastoid air cells and middle ear cavities are well-aerated. Paranasal sinuses are well-aerated. Hardware along the lateral margin of the right globe is unchanged. Assessment and Plan: #Altered mental status Most likley 2/2 worsening Parkinsons,and dementia, unlikely metabolic given normal electrolytes, could be 2/2 encephalitis from herpes zoster Resolving Workup for TIA and seizure so far remains negative. EEG was normal, and she was positive for orthostatic vitals. HbA1c id 6.0 as her FSG was elvated to 190. Neuro on board, who thinks she had convulsive syncope. Jovanna recomemnded circuit breaker mechanic on discharge. Formal PT and speech therapy showed that she can tolerate thins. Continue to mainatain on fall and seizure precautions. If echo can be done as an outpatinet, would consider dischargeing her #Herpes Zoster Continue on Valtrex 1000mg BID for 7 days renally adjusted. Of note for localized zoster, she just needs to be on standard precautions. Her HIV was negative. #Hx of Parkisnons. On infusion pump that the health aide knows how to hold and disconnect and maniputae with. Continue on infusion pump for now, and Carbidopa-Levodopa 50/200 at bedtime for now. Called Dr. Baumann's office, have documented instructions in event note. #HTN Continue Amlodipine 5 mg daily. #Hypothyroidism Continue Levothyroxine 0.1mg # COPD not on home oxygen - Continue Spiriva and Symbicort # Hyperactive urinary bladder Continue home dose of Myrbetriq - Diet Regular - DVT Prophylaxis - Heparin 5000IU TID SC - Code Status - Full Code. Problem List: 1. Shingles rash Pain Ratin Pain Location: n/a Pain Goal: Remain pain free Pain Plan: tyelnol, vicodin Tomorrow's Labs & Rationales: n/a
[2017-05-23 07:36] VITALS: BP 152/80
[2017-05-23 09:03] VITALS: BP 150/80
[2017-05-23] MEDS ORDERED: ATORVASTATIN CA80 M1 PO ×2 (09:21→10:13)
[2017-05-23] MEDS ORDERED: VALTREX500 M1 PO ×2 (09:21→10:13)
[2017-05-23] MEDS ORDERED: ASPIRIN81 M4 PO ×2 (09:21→10:13)
--- NOTE | 2017-05-23 09:27 | Patient Discharge Instructions ---
Discharge Instructions General Discharge Information You were seen/treated for: Possible syncopal episode Altered mental status Herpes Zoster Special Instructions: Please follow up with your primary care physician in one week. Please follow up with your [facility] neurologist in one week. You trevor pickard provided referral to a registered nurse post partum. Please set up an appointment for placement of clinical research monitor to r/o arrythmias. Diet Recommended Diet: Regular Activity Activity Self Limited: Yes Acute Coronary Syndrome Inclusion Criteria At DC or during hospital stay patient has or had the following: ACS DIAGNOSIS No Discharge Core Measures Meds if any: Prescribed or Continued at Discharge Meds if any: NOT Prescribed or Continued at Discharge Congestive Heart Failure Inclusion Criteria At DC or during hospital stay patient has or had the following: CHF DIAGNOSIS No Discharge Core Measures Meds if any: Prescribed or Continued at Discharge Meds if any: NOT Prescribed or Continued at Discharge Cerebrovascular accident Inclusion Criteria At DC or during hospital stay patient has or had the following: CVA/TIA Diagnosis No Discharge Core Measures Meds if any: Prescribed or Continued at Discharge Meds if any: NOT Prescribed or Continued at Discharge Venous thromboembolism Inclusion Criteria VTE Diagnosis No VTE Type NONE VTE Confirmed by (Test) NONE Discharge Core Measures - Per Current guidelines, there needs to be overlap - treatment for the first 5 days of Warfarin therapy. - If discharged on Warfarin prior to 5 days of - overlap therapy, the patient will need to be - assessed for post discharge needs including - *Post discharge parental anticoagulation - *Warfarin and/or parental anticoagulation education - *Follow up date to check INR post discharge At least 5 days overlap therapy as Inpatient No Meds if any: Prescribed or Continued at Discharge Note: Overlap Therapy is Warfarin and Anticoagulant Meds if any: NOT Prescribed or Continued at Discharge
--- NOTE | 2017-05-23 10:14 | Discharge Summary ---
Visit Information Visit Dates Admission Date: 05/22/17 Discharge Date: 05/23/17 Hospital Course Course Attending Physician: MANNY ALEMAN MD Primary Care Physician: PRESTON PORRAS MD Consulting Request: 1 Consulting Specialty: Neurology Consulting Request: 2 Consulting Specialty: Infectious Disease Hospital Course: 87-year-old woman with a past medical history of Parkinson's on 16 hr continuous infusion, TIA, hypothyroidism, hypertension, COPD who was brought in by ambulance from home with chief complaints of altered mental status and an episode of unresponsivness. Vitals at the time of admission blood pressure 100/67, respiratory rate of 18, pulse 64, afebrile saturating 95% on room air. Labs pertinent for normal white blood cell count 5500, H&H of 13.6/40.8, MCV of 96.0. Platelet count is within normal limits at 2 23,000. Serum chemistries revealed a sodium of 138, potassium of 4.3, normal bicarbonate, BUN 16 with a creatinine of 0.5. Serum glucose elevated to 190. Lactic acid within normal limits at 1.8. LFTs unremarkable with an AST/alt of 20/20, alkaline phosphatase of 85, total bili of 0.8% of troponin negative less than 0.01. Serum lipase within normal limits at 69. UA revealed trace amount of proteinuria, 15 ketones , trace amount of leukocyte esterase, 5-10 white blood cells, 1-3 hyaline casts. Chest x-ray revealed: No acute cardiopulmonary findings. No change. EKG revealed: NSR, HR: 68; normal axis, no ST-T changes. Head CT showed numerous chronic findings essentially unchanged when compared to the CT done back in June 2016. No evidence of acute territorial infarct or hemorrhage. There is a small focus of hypoattenuation within the left cerebellar hemisphere that most likely represents a small infarct that has remained unchanged from prior imaging. There are numerous foci of nonspecific hypoattenuation throughout the periventricular white matter and basal ganglia that most likely represent a chronic manifestation of small vessel ischemia. Grossly no evidence of acute territorial infarct. The calvarium and skull base are intact. Mastoid air cells and middle ear cavities are well-aerated. Paranasal sinuses are well-aerated. Hardware along the lateral margin of the right globe is unchanged. She was admitted to Telemetry and the following problems were addressed: #Altered mental status This was initially thought be to 2/2 worsening Parkinsons,and dementia, unlikely metabolic given normal electrolytes, could be 2/2 encephalitis from herpes zoster Resolving Workup for TIA and seizure so far remains negative. EEG was normal, and she was positive for orthostatic vitals. HbA1c id 6.0 as her FSG was elvated to 190. Neuro on board, who thinks she had convulsive syncope. Jovanna recomemnded playground monitor on discharge. Formal PT and speech therapy showed that she can tolerate thins. Continue to mainatain on fall and seizure precautions. If echo can be done as an outpatinet, would consider dischargeing her #Herpes Zoster She had shingles on her right arm and she was started on Valtrex 1000mg BID ( renally adjusted) which she is to continue taking for a total of 7 days. Since she was not in any immunosuppressed state, she was checked for HIV was negative. # Hx of Parkisnons on infusion pump She was continued on infusion pump, and Carbidopa-Levodopa 50/200 at bedtime for now. Her primary neurologist Dr. Baumann was contacted. #HTN Continue Amlodipine 5 mg daily. #Hypothyroidism She was continued on Levothyroxine 0.1mg. # COPD not on home oxygen - She was continued on Spiriva and Symbicort # Hyperactive urinary bladder She was continued on her home dose of Myrbetriq. Complications: None Allergies: Coded Allergies: prochlorperazine (From COMPAZINE) (Severe, ANAPHYLAXIS 02/09/16) prednisone (Intermediate, HALLUCINATIONS 02/09/16) Significant Procedures: SERVICE DATE: 05/21/17- EXAM TYPE: US - [id number] DOPPLER FINDINGS: No plaque is seen at the carotid bifurcations or within the internal carotid arteries. All velocities are within normal limits. ADDITIONAL FINDINGS: The vertebral arteries show antegrade flow. The external carotid arteries show no significant stenosis. IMPRESSION: No evidence of a hemodynamically significant stenosis involving the internal carotid arteries. SERVICE DATE: 05/21/17- EXAM TYPE: MRI - MRI-HEAD W/O [place] FINDINGS: There is no hydrocephalus, extra-axial surface collection, or herniation. There are T2 signal changes throughout the supratentorial white matter and central luis, most likely mild to moderate chronic microangiopathy. 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 The major flow voids at the skull base are preserved. There is no acute infarct on diffusion-weighted imaging. There is no intracranial hemorrhage on the gradient recalled echo acquisition. The midline structures are normal. The cerebellar tonsils are normally positioned. The cerebellum and brainstem are normal. The craniocervical junction is normal. Osseous marrow signal intensity is homogenous. The visualized soft tissues are unremarkable. There is a small retention cyst along the floor the right maxillary sinus. The paranasal sinuses are otherwise clear. Mastoid air cells are clear. IMPRESSION: This is a limited very motion degraded examination. No acute infarcts. 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 SERVICE DATE: 05/21/17 EXAM TYPE: RAD - XRY-PORTABLE CHEST XRAY FINDINGS: No focal consolidation, pulmonary edema, or pleural effusion. Stable cardiomediastinal silhouette. IMPRESSION: No acute cardiopulmonary findings. No change. SERVICE DATE: 05/21/17 EXAM TYPE: CAT - CT HEAD WO IV CONTRAST FINDINGS: There is no acute intracranial hemorrhage or abnormal extra-axial collection. No intracranial mass effect or midline shift. Lateral and third ventricles are proportionate to the subarachnoid spaces. No hydrocephalus. There is a small focus of hypoattenuation within the left cerebellar hemisphere that most likely represents a small infarct that has remained unchanged from prior imaging. There are numerous foci of nonspecific hypoattenuation throughout the periventricular white matter and basal ganglia that most likely represent a chronic manifestation of small vessel ischemia. Grossly no evidence of acute territorial infarct. The calvarium and skull base are intact. Mastoid air cells and middle ear cavities are well-aerated. Paranasal sinuses are well-aerated. Hardware along the lateral margin of the right globe is unchanged. Orbits are otherwise unremarkable. IMPRESSION: Stable examination. Numerous chronic findings remain essentially unchanged when compared to most recent prior examination from 07/13/2016. No evidence of acute territorial infarct or hemorrhage. Disposition Summary Disposition Principal Diagnosis: Altered mental status Episode of unresponsiveness Herpes zoster of right arm Additional Diagnosis: - Hx of Parkinsons on continuous infusion pump - HTN - Hypothyroidism - COPD not on home oxygen - Hyperactive urinary bladder Discharge Disposition: home or self care Discharge Instructions General Discharge Information Code Status: Full Code Patient's Diet: Heart healthy (mechanical soft and nectar thick) Patient's Activity: As tolerated Follow-Up Instructions/Appts: Please follow up with your primary care physician in one week. Please follow up with your primary neurologist in one week. You are being provided referral to a photoengraving sketch maker. Please set up an appointment for placement of playground monitor to r/o arrythmias. Medications at Discharge Discharge Medications: Continue taking these medications: Levothyroxine Sodium (Levothyroxine Sodium) 100 MCG TABLET 1 Tablet ORAL DAILY BEFORE BREAKFAST Comments: Last Taken:05/23/17 Time:0700 Brimonidine Tartrate/Timolol (Combigan Eye Drops) 0.2 %-0.5 % DROPS 1 DROP OPHTHALMIC TWICE DAILY Comments: Last Taken:05/23/17 Time:1000 Latanoprost (Xalatan) 0.005 % DROPS 1 Drop Left Eye Every night Comments: Last Taken:05/22/17 Time:10PM Carbidopa/Levodopa (Sinemet Cr 50-200 Tablet) 50 MG-200 MG TABLET.ER 1 Tablet ORAL Every night Comments: Last Taken:05/22/17 Time:10PM Amlodipine Besylate (Norvasc) 5 MG TABLET 1 Tablet ORAL DAILY Comments: Last Taken:05/23/17 Time:1000 Budesonide/Formoterol Fumarate (Symbicort 80-4.5 Mcg Inhaler) 80 MCG-4.5 MCG/ ACTUATION HFA.AER.AD 2 Puff Inhale through mouth TWICE DAILY Comments: Last Taken:05/23/17 Time:1000 Calcium Carbonate (Calcium) 500 MG CALCIUM (1,250 MG) TAB.CHEW 500 Milligram ORAL Every Day Comments: Last Taken:05/23/17 Time:1000 Tiotropium [place] (Spiriva) 18 MCG CAP.W.DEV 1 Capsule Inhale through mouth DAILY as needed for SOB Comments: Last Taken:05/23/17 Time:1000 GIVEN SYMBICORT Mirabegron (Myrbetriq) 50 MG TAB.ER.24H 1 Tablet ORAL DAILY Qty = 90 Comments: Last Taken:05/23/17 Time:1000 Start taking the following new medications: Valacyclovir Hydrochloride (Valtrex) 500 MG TABLET 1,000 Milligram ORAL TWICE DAILY Qty = 11 No Refills Instructions: . Comments: Last Taken:05/23/17 Time:1000 Atorvastatin Calcium (Atorvastatin Calcium) 80 MG TABLET 80 Milligram ORAL 5 PM Qty = 120 No Refills Instructions: . Comments: Last Taken:05/22/17 Time:5PM Aspirin (Aspirin*) 81 MG TAB.CHEW 81 Milligram ORAL DAILY Qty = 90 No Refills Instructions: . Comments: Last Taken:05/23/17 Time:1000 Copies To: VERN ROSE,PRESTON Henry; VALERIE MOLINA MD; Salazar SHARPE MD Attending MD Review Statement Documenting Attending: MANNY ALEMAN MD
== END 2017-05-23 11:15 | DRG 57 ==
LOC: ERH 08:38 → ERHI 12:06 → 1NO 12:06 → ERHI 12:06 → CANRESERV 13:24 → ENRESERV 13:24 → ENTRNSPT 16:03 → EDTRNSPT 16:36 → EDTRNSPTSTS 16:36 → 1NO 17:02 → CMPTRNSPT 18:11 → 1NO 05-22 07:21 → ENPENDDIS 05-23 12:00
PROVIDERS: Internal Medicine Infectious Disease; Physician Assistant Medical; ADMIT Internal Medicine
DX: G20 Parkinson's disease (principal); J44.9 Chronic obstructive pulmonary disease, unspecified; F02.80 Dementia in other diseases classified elsewhere, unspecified severity, without behavioral disturbance, psychotic disturbance, mood disturbance, and anxiety; I95.1 Orthostatic hypotension; B02.9 Zoster without complications; E03.9 Hypothyroidism, unspecified; N32.81 Overactive bladder; I10 Essential (primary) hypertension
CPT/HCPCS: 1NSP; 6020; 70551; 36415; 80307; 81001; 82436; 87086; 87389; 93005; 93010; 95816; 97112-GO; 97116-GO; 97161-GP; 97530-GO; G0378; J1644; J3490

== ENCOUNTER 2017-06-02 16:00 | Inpatient (IN) | payer OTHER ==
[~2017-06-02] VITALS: Ht 152.4 cm; Wt 55.0 kg
[~2017-06-02 16:00] MED LIST changes: +ASPIRIN81 M4 PO; +ATORVASTATIN CA80 M1 PO; +CALCIUM500 M2 PO; -COMBIGAN EYE DRO5 ML OP; +COMBIGAN EYE DRO5 ML OU; +LATANOPROST2.5 ML OPH; +MYRBETRIQ50 M1 PO; +SPIRIVA18 MCG INH; +VALTREX500 M1 PO
--- NOTE | 2017-06-02 16:17 | NUR ---
PT TO ED FOR "A SPINAL TAP" PER SON AND CAREGIVER PT HAS HAD WORSENING MOTOR SKILLS OVER PAST TWO WEEKS, SAW DR. MOLINA (NEUROLOGIST) IN THE OFFICE TODAY WHO SENT PATIENT IN FOR A SPINAL TAP. PT REPORTING "THE NEUROLOGIST DIDN'T WANT TO DO IT BECAUSE THEY ONLY DO IT ON FRIDAYS".
--- NOTE | 2017-06-02 18:08 | ED GENERAL ADULT ---
History of Present Illness General Chief Complaint: General Adult Stated Complaint: SIB DR PORRAS FOR SPINAL TAP Source: patient, family Exam Limitations: confusion Vital Signs & Intake/Output Vital Signs & Intake/Output Vital Signs Date Time Temp Pulse Resp B/P B/P Pulse O2 O2 Flow FiO2 Mean Ox Delivery Rate 06/03 0917 82 140/7 06/03 0800 98.3 86 20 146/80 96 Room Air 06/03 0300 96 Room Air 06/03 0300 98.2 80 24 124/76 96 Room Air 06/03 0027 98.2 70 16 120/62 98 Room Air Room Air 06/02 2147 64 18 167/79 94 06/02 1914 96.7 70 18 161/80 94 Room Air 06/02 1617 97.2 98 18 135/74 100 Room Air ED Intake and Output 06/03 0000 06/02 1200 Intake Total Output Total Balance Patient 125 lb Weight Weight Reported by Patient Measurement Method Allergies Coded Allergies: prochlorperazine (From COMPAZINE) (Severe, ANAPHYLAXIS 02/09/16) prednisone (Intermediate, HALLUCINATIONS 02/09/16) Triage Note: PT TO ED FOR "A SPINAL TAP" PER SON AND CAREGIVER PT HAS HAD WORSENING MOTOR SKILLS OVER PAST TWO WEEKS, SAW DR. MOLINA (NEUROLOGIST) IN THE OFFICE TODAY WHO SENT PATIENT IN FOR A SPINAL TAP. PT REPORTING "THE NEUROLOGIST DIDN'T WANT TO DO IT BECAUSE THEY ONLY DO IT ON FRIDAYS". Triage Nurses Notes Reviewed? yes Onset: Gradual Duration: constant Timing: recent history Severity: severe Severity Numbers: 10 HPI: Patient is an 87-year-old female with a past medical history of significant for Parkinson's currently on continuous infusion, TIA, hypothyroidism, hypertension, COPD who is brought in by family members to [facility] emergency room for concerns of altered mental status in which patient was evaluated today at neurologist Dr. Molina's office phone number [phone] (CELL) IN which he advised patient to present to the emergency room for concerns of meningitis AND LP. The son who is present states that patient is still confused compared to her normal baseline Patient currently denies any symptoms denies any fever chills shortness of breath cough chest pain abdominal pain Per old records the patient also was treated during her admission for concerns of right upper extremity herpes zoster with patient was given valacyclovir (JUNIAD DASILVA) Reconcile Medications Amlodipine Besylate (Norvasc) 5 MG TABLET 1 TAB PO DAILY HEART (Reported) Aspirin (Aspirin*) 81 MG TAB.CHEW 81 MG PO DAILY heart . Atorvastatin Calcium 80 MG TABLET 80 MG PO 1700 STROKE . Brimonidine Tartrate/Timolol (Combigan Eye Drops) 0.2 %-0.5 % DROPS 1 DROP OU QAM GLAUCOMA - BOTH EYES (Reported) Brimonidine Tartrate/Timolol (Combigan Eye Drops) 0.2 %-0.5 % DROPS 1 DROP OS QPM LEFT EYE (Reported) Budesonide/Formoterol Fumarate (Symbicort 80-4.5 Mcg Inhaler) 80 MCG-4.5 MCG/ ACTUATION HFA.AER.AD 2 PUF INH BID COPD (Reported) Calcium Carbonate (Calcium) 500 MG CALCIUM (1,250 MG) TAB.CHEW 500 MG PO D SUPPLEMENT (Reported) Carbidopa/Levodopa (Sinemet Cr 50-200 Tablet) 50 MG-200 MG TABLET.ER 1 TAB PO QPM PARKINSONS (Reported) Carbidopa/Levodopa (Duopa 4.63 MG-20 MG/Ml Suspens) (Unknown Strength) INT.ELECTION SUPERVISOR.SP (Unknown Dose) AD AD PARKINSONS (Reported) Latanoprost (Xalatan) 0.005 % DROPS 1 GTT OS QPM OCCULAR PRESSURE (Reported) Levothyroxine Sodium 100 MCG TABLET 1 TAB PO DAILY AC THYROID (Reported) Mirabegron (Myrbetriq) 50 MG TAB.ER.24H 1 TAB PO QPM overactive bladder ( Reported) Tiotropium Lyons (Spiriva) 18 MCG CAP.W.DEV 1 CAP INH DAILY PRN SOB ( Reported) (CURTIS MARIE DO) Past History Travel History Traveled to [place] past 21 day No Medical History Any Pertinent Medical History? 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 No (JUNAID DASILVA) Review of Systems Review of Systems Constitutional: Reports: no symptoms. EENTM: Reports: no symptoms. Respiratory: Reports: no symptoms. Cardiovascular: Reports: no symptoms. GI: Reports: no symptoms. Genitourinary: Reports: no symptoms. Musculoskeletal: Reports: no symptoms. Skin: Reports: no symptoms. Neurological/Psychological: Reports: see HPI. Hematologic/Endocrine: Reports: no symptoms. Immunologic/Allergic: Reports: no symptoms. All Other Systems: Reviewed and Negative (JUNAID DASILVA) Physical Exam Physical Exam General Appearance: no apparent distress, alert, comfortable Head: atraumatic Eyes: Bilateral: normal appearance, PERRL, EOMI. Ears, Nose, Throat: normal pharynx, normal ENT inspection, hearing grossly normal Neck: normal inspection, supple, full range of motion, FULL AROM Respiratory: normal breath sounds, chest non-tender, no respiratory distress Cardiovascular: regular rate/rhythm Peripheral Pulses: 2+ radial (R), 2+ radial (L) Gastrointestinal: normal bowel sounds, soft, non-tender Extremities: normal range of motion, no edema Neurologic/Psych: disoriented x 3 Skin: warm/dry Lymphatic: no anterior cervical tim Comments: Noted right upper extremity scattered well healing vesicular rash Core Measures ACS in differential dx? No CVA/TIA Diagnosis: No NIH Stroke Scale: Total 2 Severe Sepsis Present: No Septic Shock Present: No (JUNAID DASILVA) Progress Differential Diagnoses I considered the following diagnoses in my evaluation of the patient: [ Meningitis, aseptic meningitis, UTI, CVA, TIA, encephalopathy, Parkinson's,] Plan of Care: Orders Procedure Date/time Status Regular Diet 06/03 B Active Wound Care/Dressing 06/03 1052 Active STREP PNEUMO URINARY ANTIGEN 06/03 0945 Active Drains/Tubes 06/03 0940 Active Teach/Educate 06/03 0940 Active Vital Signs 06/03 0844 Active Skin Integrity Protocol 06/03 0844 Active Seizure Precautions 06/03 0844 Active Precautions 06/03 0844 Active Pain Treatment and Response 06/03 0844 Active Isolation 06/03 0844 Active CBC WITHOUT DIFFERENTIAL 06/03 0600 Complete BASIC ELECTROLYTES PLUS BUN&CR 06/03 0600 Complete VRE ACTIVE SURVIELLANCE 06/03 0326 Active ACTIVE SURVEILLANCE NARES 06/03 0326 Active Pathway - chart 06/03 0135 Active House Staff 06/03 0135 Active Patient Data 06/03 0135 Active Code Status 06/03 0135 Active XRY-PORTABLE CHEST XRAY 06/03 UNK Active VTE Mechanical Prophylaxis 06/03 UNK Active Nursing Misc 06/03 UNK Active NIH Stroke Scale 06/03 UNK Active Admit to inpatient 06/02 2349 Active Patient Data 06/02 2344 Active Add-on Test (ER Only) 06/02 2321 Active CULTURE,URINE 06/02 2228 Active BLOOD CULTURE 06/02 2227 Active LYME-CEREBROSPINAL FLUID Ref$ 06/02 1927 Active HERPES SIMPLEX VIRUS CSF 06/02 192 Active CEREBROSPINAL FLUID CULTURE 06/02 1926 Active CYTOLOGY SPECIMEN 06/02 1926 Active CSF TOTAL PROTEIN 06/02 1926 Complete CEREBROSPINAL FL CELL CT 06/02 192 Complete CSF LDH 06/02 1926 Complete CSF GLUCOSE 06/02 1926 Complete THYROID STIMULATING HORMONE 06/02 1900 Complete FREE T4 06/02 1900 Complete URINALYSIS 06/02 1816 Complete TROPONIN LEVEL 06/02 1816 Complete LYME TITRE 06/02 1816 Active LACTIC ACID 06/02 1816 Complete COMPREHENSIVE METABOLIC PANEL 06/02 1816 Complete CBC WITHOUT DIFFERENTIAL 06/02 1816 Complete EKG 06/02 1816 Active Intake & Output 06/02 1741 Active Current Medications Sig/Cristal Start time Last Medication Dose Stop Time Status Admin Carbidopa/Levodopa 1 TAB QPM 06/03 2200 AC (Sinemet CR 50/200MG) Latanoprost 1 GTT QPM 06/03 2200 AC (Xalatan) Atorvastatin Calcium 80 MG 1700 06/03 1700 AC (Lipitor) Amlodipine Besylate 5 MG DAILY 06/03 1000 AC 06/03 (Norvasc) 0917 Aspirin 81 MG DAILY 06/03 1000 AC 06/03 (Aspirin) 0917 Brimonidine Tartrate 1 GTT BID 06/03 1000 AC 06/03 (Alphagan) 0918 Budesonide/ 2 PUF BID 06/03 1000 AC 06/03 Formoterol Fumarate 0919 (SYMBICORT) Enoxaparin Sodium 40 MG DAILY 06/03 1000 AC 06/03 (Lovenox) 09 Timolol Maleate 1 GTT BID 06/03 1000 AC 06/03 (Timoptic) 0918 Non-Formulary 0 SEE ADMIN CRITERIA 06/03 0800 UNVr Medication (NON FORMULARY) Tiotropium Lyons 1 PUF DAILY PRN 06/03 0730 AC (Spiriva) Levothyroxine Sodium 0.1 MG DAILY AC 06/03 0720 AC 06/03 (Synthroid) 0917 Acyclovir 560 MG Q12H 06/03 0300 AC 06/03 (Zovirax) 0326 Dextrose/Water 100 ML (D5W) Acetaminophen 650 MG Q6P PRN 06/03 0145 AC (Tylenol) Ibuprofen 600 MG Q6P PRN 06/03 0145 AC (Motrin) Acyclovir 560 MG ONCE ONE 06/02 2315 CAN (Zovirax) 06/03 0014 Dextrose/Water 100 ML (D5W) Acyclovir 560 MG ONCE ONE 06/02 2230 CAN (Zovirax) 06/02 223 Vancomycin HCl 850 MG ONCE ONE 06/02 223 CAN 06/02 223 Laboratory Tests 06/03/17 0500: Anion Gap 9, Estimated GFR > 60, BUN/Creatinine Ratio 30.0 H, CBC w Diff NO MAN DIFF REQ, RBC 3.84 L, MCV 96.9, MCH 32.5 H, RDW 13.8, MPV 8.0, Gran % 79.0 H, Lymphocytes % 11.0 L, Monocytes % 8.5, Eosinophils % 1.2, Basophils % 0.3, Absolute Granulocytes 7.6 H, Absolute Lymphocytes 1.1 L, Absolute Monocytes 0.8 H, Absolute Eosinophils 0.1, Absolute Basophils 0, PUBS MCHC 33.5 06/02/172126: Urine Color STRAW, Urine Clarity CLEAR, Urine pH 7.5, Ur Specific [place] 1.010, Urine Protein NEG, Urine Ketones NEG, Urine Nitrite NEG, Urine Bilirubin NEG, Urine Urobilinogen 0.2, Ur Leukocyte Esterase NEG, Ur Microscopic EXAM NOT REQUIRED, Urine Hemoglobin NEG, Urine Glucose NEG 06/02/172115: Lactic Acid Cancelled 06/02/172111: CSF Glucose 49, CSF LDH 196, CSF Total Protein 123 H 06/02/172111: Lymphocytes 82, % Normal PMNs 0, Misc Hematology Test , CSF WBC 56 *H, CSF RBC 396 H, CSF Comment , Lyme Specimen Source Pending, Lyme Disease DNA (PCR) Pending, Herpes Simplex Source Pending, HSV I DNA PCR Pending, HSV II DNA PCR Pending 06/02/17 1900: Anion Gap 10, Estimated GFR > 60, BUN/Creatinine Ratio 40.0 H, Glucose 94, Lactic Acid 1.0, Calcium 9.5, Total Bilirubin 0.9, AST 27, ALT 14, Alkaline Phosphatase 120, Troponin I < 0.01, Total Protein 7.7, Albumin 4.3, Globulin 3.4 , Albumin/Globulin Ratio 1.3, TSH 1.880, Free T4 1.61, CBC w Diff NO MAN DIFF REQ, RBC 4.03 L, MCV 97.0, MCH 32.2 H, RDW 13.9, MPV 8.0, Gran % 68.3, Lymphocytes % 18.4 L, Monocytes % 9.5 H, Eosinophils % 3.4, Basophils % 0.4, Absolute Granulocytes 5.6, Absolute Lymphocytes 1.5, Absolute Monocytes 0.8 H, Absolute Eosinophils 0.3, Absolute Basophils 0, PUBS MCHC 33.2, Lyme Disease Antibody Pending Microbiology 06/03 1115 URINE ROUT: Streptococcus pneumoniae Antigen (M - RECD 06/03 0450 UPPER RESP: Surveillance Culture - RECD 06/03 0450 GI: Surveillance Culture - RECD 06/03 0000 BLOOD: Blood Culture - RECD 06/03 0000 BLOOD: Blood Culture - RECD 06/02 2127 URINE ROUT: Urine Culture - RECD 06/02 2112 CENT N S: CSF Culture - RES 06/02 2112 CENT N S: Gram Stain - RES PT HAS NO FOCAL DEFICIT ON EXAM FOR CONCERN OF TIA/CVA Patient numbness on examination was in no apparent distress however does show concerns of altered mental state lumbar puncture was performed in which patient does note of 56 white blood cell count in which the corrective RBC was still of critical findings value for concerns of bacterial meningitis. 06/02/2017 10:45:[address] MYERS WAS PAGED 06/02/2017 11:35:46 PM ID WAS CALLED ON HER CELL PHONE, LEFT MESSAGE I then proceeded with treating patient for concerns of prophylactic treatment of EMPERIC Therapy for bacterial meningitis and VIRAL meningitis Discussed disposition plan with Dr. Roman and family members who agrees and has no questions. Blood culture and CSF culture currently pending (JUNAID DASILVA) Diagnostic Imaging: Viewed by Me: CT Scan. Radiology Impression: no acute abnormality Initial ED EKG: normal p-waves, normal QRS complex, normal sinus rhythm, 70 BPM Comments: PATIENT: MAC VALLES PRESENT AGE: 87 PATIENT ACCOUNT NO: [id number] : 31 LOCATION: [facility] ORDERING PHYSICIAN: JUNAID MALDONADO SERVICE DATE: 06/02/17 EXAM TYPE: CAT - CT HEAD WO IV CONTRAST EXAMINATION: CT HEAD WITHOUT CONTRAST CLINICAL INFORMATION: Altered mental status. COMPARISON: 05/21/2017. TECHNIQUE: Contiguous axial images of the brain were obtained without IV contrast. DLP: 612 mGy-cm. FINDINGS: There are no pathologic extra-axial fluid collections. The lateral, third, fourth ventricles are prominent, but stable, age-appropriate and concordant with the appearance of the sulci. There is no evidence for acute intraparenchymal hemorrhage or infarct. And there is periventricular low-attenuation present indicative of small vessel disease. There is stable low-attenuation within the left cerebellar hemisphere. There is neither mass nor mass effect. There is no shift of midline structures. The paranasal sinuses and mastoid air cells are clear. There are no osseous lesions. IMPRESSION: No evidence for acute intracranial injury. Stable age-appropriate appearance of the brain. DICTATED BY: TERRI SAL MD DATE/TIME DICTATED:06/02/171933 (JUNAID DASILVA) Differential Diagnoses I considered the following diagnoses in my evaluation of the patient: (CYNTHIA ANTHONY,CURTIS Mares) Departure Departure Disposition: STILL A PATIENT Condition: Critical Clinical Impression Primary Impression: Meningitis Secondary Impressions: Altered mental state Referrals: PRESTON PORRAS MD (PCP/Family) Departure Forms: Customer Survey General Discharge Information Admission Note Spoke With: RAYMON ARAMBULA MD Documentation of Exam: Documentation of any treatments & extenuating circumstances including Concerns Regarding Discharge (functional status, medication knowledge or non-compliance, living conditions, etc.) that warrant an admission rather than observation: [ DISCUSSED ADMISSION WITH DR. ARAMBULA FOR THE ICU FOR CONCERN OF MENINGITIS, PT REQUIRES ABX, ANTIVIRAL TX, ID, DROPLET PRECAUTION, CSF AND BLOOD CX PENDING] (JUNAID DASILVA) PA/ATOMIC SPECTROSCOPIST Co-Sign Statement Statement: ED Attending supervision documentation- [X] I saw and evaluated the patient. I have also reviewed all the pertinent lab results and diagnostic results. I agree with the findings and the plan of care as documented in the PA's/ATOMIC SPECTROSCOPIST's documentation. [] I have reviewed the ED Record and agree with the PA's/ATOMIC SPECTROSCOPIST's documentation. [] Additions or exceptions (if any) to the PAs/ATOMIC SPECTROSCOPIST's note and plan are summarized below: [] (CYNTHIA ANTHONY,CURTIS Mares) Procedures Comments Comments: Lumbar puncture was performed in the emergency room in which the son signed consent form and was to risks and benefits were discussed with family members and patient. Patient was placed in left lateral position in which using initially L4-L5 site local anesthesia and sterile technique was used I used approximately 10 mL of local anesthesia using 1% lidocaine where lumbar puncture was unsuccessful then using the L3-L4 then 10 mL of local anesthesia of 1% lidocaine again was used site the lumbar puncture was ascertained in which minimal blood-tinged CSF fluid was initially noted however the rest of CSF was clear. Needle was removed bandage was applied patient was placed 30 of head of bed patient tolerated well the procedure. THIS WAS PERFORMED WITH DR. MARIE (JUNAID DASILVA) Critical Care Note Critical Care Note Critical Care Time: 75-104 min (JUNAID DASILVA)
[2017-06-02] MEDS ORDERED: COMBIGAN EYE DRO5 ML OS (18:20)
[2017-06-02] MEDS ORDERED: DUOPA 4.63 MG-100 ML AD (18:23)
--- NOTE | 2017-06-02 19:08 | NUR ---
BLOOD COLLECTED AND SENT TO LAB
[2017-06-02 19:18] LABS: ABSOLUTE BASOPHIL COUNT 0 /CUMM (0.0-0.2); ABSOLUTE EOSINOPHIL COUNT 0.3 /CUMM (0.0-0.7); ABSOLUTE GRANULOCYTE CT 5.6 /CUMM (1.4-6.5); ABSOLUTE LYMPH COUNT 1.5 /CUMM (1.2-3.4); ABSOLUTE MONOCYTE COUNT 0.8 /CUMM (0.10-0.60); BASOPHIL % 0.4 % (0.0-2.0); EOSINOPHIL % 3.4 % (0-5); GRANULOCYTE % 68.3 % (42.2-75.2); HEMATOCRIT 39.1 % (37-47); MEAN CORPUSCULAR HGB 32.2 PG (27.0-31.0); MEAN CORPUSCULAR HGB CONC 33.2 G/DL (33.0-37.0); PLATELET COUNT 314 /CUMM (130-400); RBC DISTRIBUTION WIDTH 13.9 % (11.5-14.5); RED BLOOD CELL CT 4.03 /CUMM (4.20-5.40); WHITE BLOOD CELL COUNT 8.2 /CUMM (4.8-10.8)
--- NOTE | 2017-06-02 19:23 | NUR ---
PT TO CT ON STRETCHER
--- NOTE | 2017-06-02 19:40 | CT SCAN REPORT ---
EXAMINATION: CT HEAD WITHOUT CONTRAST CLINICAL INFORMATION: Altered mental status. COMPARISON: 05/21/2017. TECHNIQUE: Contiguous axial images of the brain were obtained without IV contrast. DLP: 612 mGy-cm. FINDINGS: There are no pathologic extra-axial fluid collections. The lateral, third, fourth ventricles are prominent, but stable, age-appropriate and concordant with the appearance of the sulci. There is no evidence for acute intraparenchymal hemorrhage or infarct. And there is periventricular low-attenuation present indicative of small vessel disease. There is stable low-attenuation within the left cerebellar hemisphere. There is neither mass nor mass effect. There is no shift of midline structures. The paranasal sinuses and mastoid air cells are clear. There are no osseous lesions. IMPRESSION: No evidence for acute intracranial injury. Stable age-appropriate appearance of the brain.
--- NOTE | 2017-06-02 21:50 | NUR ---
CRITICAL TEST RESULTS [id number] MAC VALLES 87 F TESTS AND RESULTS: WHITE CT FROM CSF 56 Results received and read back by: CAMILA HERRING Results received date and time: 06/02/172149 The following provider was notified of the results, and read the results back: Notified date and time: 06/02/17 at 2150
--- NOTE | 2017-06-02 22:07 | NUR ---
RESTING QUIETLY W/O C/O AT THIS TIME. SON IS AT THE BEDSIDE. AWAITING DISPOSITION.
--- NOTE | 2017-06-03 00:15 | NUR ---
DR MCGRAW STATES SHE WANTS BLOOD CULTURES EVEN THOUGH ROCEPHIN AND AMPICILIN WERE ALREADY ADMINISTERED. CULTURES DRAWN AND VANCO ADMINSITERED.
--- NOTE | 2017-06-03 00:29 | NUR ---
REPORT GIVEN JHONATAN RN, PT IS ALERT AND ORIENTED AND DENIES COMPLAINTS. PT SINUS ON MONITOR.
--- NOTE | 2017-06-03 01:14 | NUR ---
HOUSE STAFF IN TO EVAL
--- NOTE | 2017-06-03 01:25 | NUR ---
PT ASSIGNED TO ICU ROOM 110-01
--- NOTE | 2017-06-03 01:40 | NUR ---
HOUSE STAFF HERE TO EVAL AND ENTER ADMIT ORDERS.
--- NOTE | 2017-06-03 02:06 | History & Physical ---
EDILIAFRUITLAND 06/03/17 0155: General Information and HPI MD Statement: I have seen and personally examined MAC VALLES and documented this H&P. The patient is a 87 year old F with PMH of parkison disease on 16 hours levodopa /carbidopa infusion pump, HTN, COPD,TIA and hypothyroidism who was brought to ED by her son because her neurologist sent her for LP Tap. She was traeted for shingles on her right arm couple of days back with valacyclovir when she was admitted for altered mental status and EEG was negative for seizures at that time. According to her son, she seems to be confused compare to her baseline mental status for last couple of days so he brought her to the neurologist today who after examination sent her in ED.[]. When patient was examined in ED she was alert but oriented in person and place but not in time. She told us that he is taking her parkinson medication through pump and her son used to give her medications. Patient denied any chest pain ,palpitation, belly pain, recent flu, sore throat, nausea, vomiting, vision chamnges, headache, photophobia and dysuria. History of Present Illness: The patient is a 87 year old F with PMH of parkison disease on 16 hours levodopa /carbidopa infusion pump, HTN, COPD,TIA and hypothyroidism who was brought to ED by her son because her neurologist sent her for LP Tap. She was traeted for shingles on her right arm couple of days back with valacyclovir when she was admitted for altered mental status and EEG was negative for seizures at that time. According to her son, she seems to be confused compare to her baseline mental status for last couple of days so he brought her to the neurologist today who after examination sent her in ED. When patient was examined in ED she was alert but oriented in person and place but not in time. She told us that he is taking her parkinson medication through pump and her son used to give her medications. Patient denied any chest pain ,palpitation, belly pain, recent flu, sore throat, nausea, vomiting, vision chamnges, headache, photophobia and dysuria. Allergies/Medications Allergies: Coded Allergies: prochlorperazine (From COMPAZINE) (Severe, ANAPHYLAXIS 02/09/16) prednisone (Intermediate, HALLUCINATIONS 02/09/16) Home Med list Amlodipine Besylate (Norvasc) 5 MG TABLET 1 TAB PO DAILY HEART (Reported) Aspirin (Aspirin*) 81 MG TAB.CHEW 81 MG PO DAILY heart . Atorvastatin Calcium 80 MG TABLET 80 MG PO 1700 STROKE . Brimonidine Tartrate/Timolol (Combigan Eye Drops) 0.2 %-0.5 % DROPS 1 DROP OU QAM GLAUCOMA - BOTH EYES (Reported) Brimonidine Tartrate/Timolol (Combigan Eye Drops) 0.2 %-0.5 % DROPS 1 DROP OS QPM LEFT EYE (Reported) Budesonide/Formoterol Fumarate (Symbicort 80-4.5 Mcg Inhaler) 80 MCG-4.5 MCG/ ACTUATION HFA.AER.AD 2 PUF INH BID COPD (Reported) Calcium Carbonate (Calcium) 500 MG CALCIUM (1,250 MG) TAB.CHEW 500 MG PO D SUPPLEMENT (Reported) Carbidopa/Levodopa (Sinemet Cr 50-200 Tablet) 50 MG-200 MG TABLET.ER 1 TAB PO QPM PARKINSONS (Reported) Carbidopa/Levodopa (Duopa 4.63 MG-20 MG/Ml Suspens) (Unknown Strength) INT.PLANT MECHANIC.SP (Unknown Dose) AD AD PARKINSONS (Reported) Latanoprost (Xalatan) 0.005 % DROPS 1 GTT OS QPM OCCULAR PRESSURE (Reported) Levothyroxine Sodium 100 MCG TABLET 1 TAB PO DAILY AC THYROID (Reported) Mirabegron (Myrbetriq) 50 MG TAB.ER.24H 1 TAB PO QPM overactive bladder ( Reported) Tiotropium [place] (Spiriva) 18 MCG CAP.W.DEV 1 CAP INH DAILY PRN SOB ( Reported) Past History Travel History Traveled to [place] past 21 day No Medical History Neurological: Parkinson's disease EENT: NONE Cardiovascular: hypertension Respiratory: asthma, bronchitis Gastrointestinal: NONE Hepatic: NONE Renal: RHABDOMYOLYSIS Musculoskeletal: NONE Psychiatric: NONE Endocrine: hypothyroidism Blood Disorders: NONE Cancer(s): NONE 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 Ambulation: walker IADLs Independent: shopping, housework, finances, food prep, telephone, transportation , medication admin. Review of Systems Review of Systems Constitutional: Reports: no symptoms. EENTM: Reports: no symptoms. Cardiovascular: Reports: no symptoms. Respiratory: Reports: no symptoms. GI: Reports: no symptoms. Genitourinary: Reports: no symptoms. Musculoskeletal: Reports: no symptoms. Hematologic/Endocrine: Reports: no symptoms. Exam & Diagnostic Data Last 24 Hrs of Vital Signs/I&O Vital Signs Date Time Temp Pulse Resp B/P B/P Pulse O2 O2 Flow FiO2 Mean Ox Delivery Rate 06/03 0027 98.2 70 16 120/62 98 Room Air Room Air 06/02 2147 64 18 167/79 94 06/02 1914 96.7 70 18 161/80 94 Room Air 06/02 1617 97.2 98 18 135/74 100 Room Air Intake & Output 06/03 0800 06/03 0000 06/02 1600 Intake Total Output Total Balance Patient 125 lb Weight Weight Reported by Patient Measurement Method Physical Exam General Appearance Alert Skin Temp/Moisture Exam: Warm/Dry HEENT Atraumatic Neck Supple Cardiovascular Regular Rate, Normal S1, Normal S2 Lungs Normal Air Movement Abdomen Normal Bowel Sounds, Soft Neurological Normal Speech, Strength at 5/5 X4 Ext, Normal Tone, Sensation Intact, Cranial Nerves 3-12 NL, Reflexes 2+ Assessment/Plan Assessment: According to patient history, exam and lab results we are suspecting bacterial meningitis or aseptic meningitis so patient was given prophylactic dose of antibiotics along with acylovir. The CSF results are showing that its mre probably aseptic so we will continue acyclovir and call ID in the morning for consultation. On physical examination kerning, Brudzinski's sign -ve , neck stiffness-ve, CN2- 12 intact, power 5/5 B/L, sensations intact B/L. Core Measures/Miscellaneous Acute Coronary Syndrome ACS Diagnosis: No Cerebrovascular Accident CVA/TIA Diagnosis: No Congestive Heart Failure CHF Diagnosis: No VTE (View Protocol) VTE Risk Factors: Age > 40 No [facility] VTE prophylaxis d/t: VTE low risk (we will give) No VTE Pharm Prophylaxis d/t: VTE low risk (lovenox) VTE Diagnosis: No VTE Type: NONE VTE Confirmed by (Test): NONE Sepsis (View Protocol) Severe Sepsis Present: No Septic Shock Septic Shock Present: No Miscellaneous Documentation Attending Case Discussed With: RALF ROSE,KAROJOHANAMARYA HANLEYPIOTR 06/03/17 0319: Assessment/Plan As Ranked By This Provider Problem List: 1. Meningitis 2. Altered mental state Core Measures/Miscellaneous Miscellaneous Documentation Primary Care Physician: PRESTON PORRAS MD Patient sees these Specialists neurology Level of Patient Care: Critical Care (CRI) Resident Review Statement Resident Statement: examined this patient, discussed with internal medicine nurse practitioner, agreed with internal medicine nurse practitioner Other Findings: Patient is 87-year-old female with past medical history significant for TIA, hypothyroidism, hypertension, COPD, Parkinson's disease on 16 hour continuous infusion carbidopa levodopa, recent admission at [facility] from May 22 2 May 23 with altered mental status and episodes of unresponsiveness and was found to have right upper extremity herpes zoster was sent home on 7 day course of valacyclovir 500 mg twice a day. EEG was negative at that time. Patient was instructed to see his neurologist and while she was evaluating not at her baseline and still slightly confused and LP was recommended and patient was sent to drip in ER. By the time LP results were back was found to have elevated WBC count suspicious for meningitis requiring admission at this point. Patient wasn't able to give us proper information but admits that she had frequent falls when her legs gave up at home since she was discharged from here but she denied any head strike. She denied any headache, neck stiffness, fever , chills photophobia, recent travel or sick contact. I tried to call his son and left a message on voicemail. Vital signs on admission were temperature 90.7, pulse 98 respiratory rate 18, blood pressure 135/74 and saturating 100% on room air. Labs were WBC count 8.2, hemoglobin 13.0, hematocrit 39.1, platelet count 314, sodium 133, potassium 4.6, BUN/creatinine 20, creatinine 0.5, negative troponins , normal thyroid function clear urinalysis, CSF showed 56 WBCs, 396 RBCs, 49 glucose, 196 LDH and 123 proteins and negative gram stains for now Head CT was negative for any acute intracranial pathology Physical examination In the but oriented 2 Head atraumatic Neck supple, no neck stiffness, HEENT, PERRLA, EOMI, no chest clear to auscultate Heart S1 and S2 normal with no added sounds Abdomen Soft with intact tubing for carbidopa levodopa infusion Extremities showed no edema No neurological deficit noted on neurological examination, Brudzinski's and kernig test were negative. 85-year-old female with history of Parkinson disease, COPD, TIA, hypertension and hypothyroidism with recent diagnosis of right upper extremities herpes zoster infection/shingles came in with positive CSM findings on LP and confusion most likely aseptic meningitis/encephalitis and we'll rule out bacterial meningitis as well. With admit patient in ICU for close observation most likely for 24 hours and then would be downgraded to general medical floor Problem list 1. History of Parkinson's disease 2. History of TIA 3. History of recent herpes zoster/shingles 4. Altered mental status with recent herpes zoster infection could be due to aseptic meningitis/encephalitis and will rule out bacterial meningitis Plan ICU monitoring Frequent neuro checks Patient was given ceftriaxone, ampicillin and vancomycin along with acyclovir for empiric treatment of meningitis but given recent herpes zoster and after reviewing CSF findings most likely is aseptic meningitis and we will continue acyclovir 10 mg/kg body weight acute 8 hours. At this point bacterial meningitis is unlikely so we will hold steroids for now. ID consultation in a.m. We will continue her home medications Neurology evaluation in a.m. She recently had EEG we will hold further EEG pending neurology evaluation Heart healthy diet Pharmacological DVT prophylaxis Patient is full code RALF ROSE, [facility] 06/03/17 0424: Attending MD Review Statement Attending Statement Attending MD Statement: examined this patient, discuss w/resident/PA/JBOSS ARCHITECT, agreed w/resident/PA/JBOSS ARCHITECT Attending Assessment/Plan: 87 yo F with h/o TIA, Parkinson's disease on levodopa infusion pump followed by Dr. Chamorro, COPD, HTN, hypothyroidism, recently admitted to [place] (05/22-) for AMS likely convulsive syncope and Herpes zoster treated with 7-days of Valcyclovir, is sent in by Dr. Chamorro for a lumbar puncture to further evaluate altered mental status. According to ER reports, son had stated that patient is still confused. We tried to reach out to family, but no response. Patient reports having frequent falls where her legs give away, but denies syncope or head strike. She denies headache, vision changes, photophobia or fever. Vitals are stable. Neuro exam: alert, oriented x2, speech is clear, nonfocal exam. Gait not tested. No nuchal rigidity, Kernig's and Brudzinski's sign negative. Abd: soft, ?PEG tube for the infusion. Labs: no leukocytosis, Na 133, BUN 20, trop neg, thyroid functions normal. UA neg. CT head neg. EKG: SR, nonspecific EKG changes. Lumbar puncture was performed in the ER and results showed: CSF WBC 56 (82% lymphocytes), RBC 396, glucose 49, LDH 196, protein 123 (elevated), gram stain neg. Culture pending. EEG (2017): normal in wake and drozsy states. Echo (2016): EF > 65%. 1. Altered mental status, confusion in this elderly lady with recent h/o herpes zoster now with concerns of encephalitis or meningitis. No evidence of fever or nuchal rigidity. Lumbar puncture results are suggestive of aseptic or viral meningitis, although early bacterial meningitis cannot be ruled out. ICU admit, panculture, neurochecks, patient has received IV ceftriaxone, vancomycin, ampicillin and acyclovir in the ER. We will continue with IV acyclovir and obtain ID and Neuro consults in AM. Gentle hydration. Patient can be downgraded to medical floor if she remains afebrile over next 24 hours without any worsening neurological symptoms. Please obtain more collateral information from family in AM. DVT ppx Lovenox. Full code. Please confirm CMR in AM and resume all home meds. TTS > 45 mins
--- NOTE | 2017-06-03 02:15 | Admission Certification ---
Admission Certification Certification Statement - As attending physician, I certify that at the time of - admission, based on clinical presentation, severity of - symptoms, need for further diagnostic testing and - therapeutic interventions, and risk of adverse outcomes - without in-hospital treatment, in my clinical assessment, - this patient requires an acute hospital stay for a minimum - of two nights or longer. I have also considered psychsocial - factors such as support system, advanced age, financial - issues, cognitive issues, and failed out-patient treatments, - past re-admission history, safety of patient, and lack of - compliance as applicable. Specific rationale supporting this admission is: Altered mental status, recent zoster infection, suspected encephalitis vs. meningitis.
--- NOTE | 2017-06-03 02:17 | NUR ---
REPORT CALLED TO UMESH LINCOLN
[2017-06-03 03:00] VITALS: BP 124/76
[2017-06-03 06:05] LABS: ABSOLUTE BASOPHIL COUNT 0 /CUMM (0.0-0.2); ABSOLUTE EOSINOPHIL COUNT 0.1 /CUMM (0.0-0.7); ABSOLUTE GRANULOCYTE CT 7.6 /CUMM (1.4-6.5); ABSOLUTE LYMPH COUNT 1.1 /CUMM (1.2-3.4); ABSOLUTE MONOCYTE COUNT 0.8 /CUMM (0.10-0.60); BASOPHIL % 0.3 % (0.0-2.0); EOSINOPHIL % 1.2 % (0-5); HEMATOCRIT 37.2 % (37-47); MEAN CORPUSCULAR HGB 32.5 PG (27.0-31.0); MEAN CORPUSCULAR HGB CONC 33.5 G/DL (33.0-37.0); MEAN CORPUSCULAR VOLUME 96.9 FL (81.0-99.0); PLATELET COUNT 267 /CUMM (130-400); RBC DISTRIBUTION WIDTH 13.8 % (11.5-14.5); RED BLOOD CELL CT 3.84 /CUMM (4.20-5.40); WHITE BLOOD CELL COUNT 9.6 /CUMM (4.8-10.8)
[2017-06-03 08:00] VITALS: BP 146/80
--- NOTE | 2017-06-03 09:01 | Event Note ---
Event Note Event Note: I spoke with the patient's son regarding the patients medications. The correct meds were confirmed with him, and the CMR reconciled. Her carbidopa/levodopa pump (duopa) is given 16 hours daily via her GJ tube. Additionally, she takes PO carbidopa/levodopa 50/200 qhs. She had no significant cardiopulmonary events overnight. Upon assessment this morning, with her son at the bedside, she is still confused compared to her baseline. She is able to communicate well. She knows she is at [place], and is oriented to place, but not time. She has no acute complaints. She denies any headache, visual changes or fever. Physical exam: AAOx2 HEENT/Neck: NC AT, no tenderness. No pain with neck flexion or nuchal rigidity. Heart: S1S2 w/o MRG Abdomen: soft/NT Ms. Mitchell is an 85-year-old female with history of PD, COPD, TIA, HTN and hypothyroidism with recent diagnosis of right upper extremities herpes zoster infection/shingles who presented from Dr. Chamorro's office for altered mental status. Her LP in the ED showed findings compatible with aseptic meningitis. Problem list Viral Meningitis * Not febrile and no leukocytosis, -ve non-contrast CT * ABx narrowed down to acyclovir 550mg q8 * ID consult appreciated. * CSF cultures pending and strep antigen pending. Parkinson's disease * Duopa q16 and carbidopa/levodopa 50-200 QHS Continue HTN, hypothyroid, glaucoma meds Stable for transfer to . Regular diet Pharmacological DVT prophylaxis FULL CODE Patient seen and examined. Resting comfortably not in acute distress. She is alert and oriented to place and person. She is occasionally confused. The family members mental status has improved though she still appears confused. Working diagnosis at present. 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 We'll continue her home regimen for her Parkinson's disease.
--- NOTE | 2017-06-03 09:06 | NUR ---
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, HEART RATE 70'S TO 80'S/MIN, BREATHE SOUNDS CLEAR BILATERALLY, O2 SAT 95 TO 96% ON RA, ABDOMEN SOFT, +BS, PEG TUBE CLAMPED AND INTACT, PATIENT INCONTINENT OF URINE-SKIN CLEANSED, LINEN CHANGED, DROPLET PRECAUTIONS/ISOLATION EXPALINED TO PATIENT, PATIENT ORIENTED TO CRCU SURROUNDINGS/ROUTINE, ENCOURAGED TO VERBALIZE ANY QUESTIONS/CONCERNS, PATIENT POOR HISTORIAN, NO FAMILY PRESENT- ADMISSION INFORMATION OBTAINED FROM MD NOTES 0430 PATIENT SLEEPING IN NAPS, AWAKENS CONFUSED WITH INAPPROPRIATE COMMENTS BUT QUICKLY BECOMES ORIENTED TO SURROUNDINGS WITH PROMPTS- BED ALARM IN USE 0630 VS STABLE, NO CHANGES IN STATUS NOTED OVERNIGHT, AWAITING AM MD ROUNDS
--- NOTE | 2017-06-03 11:30 | NUR ---
@0800-PT ALERT AND FORGETFUL, TREMORS NOTED-HX PARKINSONS. PT HAS PREHOSP PEG TUBE SITE FOR PARKINSON PUMP INFUSION-ATTACHED BY SON THIS AM. ACCORDING TO SON, INFUSION RUNS FOR 16HRS AND WILL BE TAKEN OFF THIS [place] BY OTHER SON. HOUSESTAFF AWARE AND NSG ORDER PLACED. BED ALARM CONT FOR SAFETY PT IS FALL RISK AND HAS HX OF FALLS AT HOME. FOLLOWS COMMANDS. RODRIGUEZ, WEAK BUT EQUAL. DENIES HEADACHE OR STIFFNESS AT THIS TIME. CONT ON RA, LUNGS DIM TO BASES. CXR ORD FOR THIS AM. NSR HR 70-80S. BP STABLE. NO CARDIAC DISTRESS NOTED. REG DIET PROVIDED FOR BREAKFAST. HEALING SHINGLES NOTED TO RFA-SCABBED OVER. ABRASION TO LFA FROM FALL AT HOME, WILL PLACE BACITRACIN DSG TO SITE. MULT BRUISES NOTED FROM FALL AT HOME. +PULSES. CONT TO MONITOR CLOSELY. CALL SANDRA HARRIS.
--- NOTE | 2017-06-03 11:36 | NUR ---
@1100-PT ST CATH FOR STREP PNEUMO. PT INC OF LARGE AMTS OF URINE. 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
--- NOTE | 2017-06-03 12:04 | Cons- Infect Disease ---
General Information and HPI Consulting Request Date of Consult: 06/03/17 Requested By: RALF ROSE,RAYMON Reason for Consult: MSC; eval meningitis Source of Information: patient, primary team Exam Limitations: clinical condition History of Present Illness: 87 year old WF known with Parkison disease, HTN, COPD,TIA and hypothyroidism who was brought to ED on 06/02 by her son because of MSC. She was seen by her neurologist and sent to the ED for further evaluation, including an LP. Received one dose empirically in ED CTX/ampicillin/vancomycin/acyclovir. Of note she recently treated for right (R) arm zoster couple with oral valacyclovir; currently all lesions R UE lesions are crusted. According to her son, she seems to be confused compare to her baseline mental status for last couple of days prior to admission. Patient denies fever, chills, chest pain, palpitation, abd pain, nausea, vomiting, vision changes, headache, neck pain or photophobia. Denies productive cough. Allergies/Medications Allergies: Coded Allergies: prochlorperazine (From COMPAZINE) (Severe, ANAPHYLAXIS 02/09/16) prednisone (Intermediate, HALLUCINATIONS 02/09/16) Home Med List: Amlodipine Besylate (Norvasc) 5 MG TABLET 1 TAB PO DAILY HEART (Reported) Aspirin (Aspirin*) 81 MG TAB.CHEW 81 MG PO DAILY heart . Atorvastatin Calcium 80 MG TABLET 80 MG PO 1700 STROKE . Brimonidine Tartrate/Timolol (Combigan Eye Drops) 0.2 %-0.5 % DROPS 1 DROP OU QAM GLAUCOMA - BOTH EYES (Reported) Brimonidine Tartrate/Timolol (Combigan Eye Drops) 0.2 %-0.5 % DROPS 1 DROP OS QPM LEFT EYE (Reported) Budesonide/Formoterol Fumarate (Symbicort 80-4.5 Mcg Inhaler) 80 MCG-4.5 MCG/ ACTUATION HFA.AER.AD 2 PUF INH BID COPD (Reported) Calcium Carbonate (Calcium) 500 MG CALCIUM (1,250 MG) TAB.CHEW 500 MG PO D SUPPLEMENT (Reported) Carbidopa/Levodopa (Sinemet Cr 50-200 Tablet) 50 MG-200 MG TABLET.ER 1 TAB PO QPM PARKINSONS (Reported) Carbidopa/Levodopa (Duopa 4.63 MG-20 MG/Ml Suspens) (Unknown Strength) INT.SETTER UP.SP (Unknown Dose) AD AD PARKINSONS (Reported) Latanoprost (Xalatan) 0.005 % DROPS 1 GTT OS QPM OCCULAR PRESSURE (Reported) Levothyroxine Sodium 100 MCG TABLET 1 TAB PO DAILY AC THYROID (Reported) Mirabegron (Myrbetriq) 50 MG TAB.ER.24H 1 TAB PO QPM overactive bladder ( Reported) Tiotropium [place] (Spiriva) 18 MCG CAP.W.DEV 1 CAP INH DAILY PRN SOB ( Reported) Current Medications: Current Medications Sig/Cristal Start time Last Medication Dose Route Stop Time Status Admin Acetaminophen 650 MG Q6P PRN 06/03 0145 AC PO Acyclovir 560 MG Q12H 06/03 0300 AC 06/03 Dextrose/Water 100 ML IV 0326 Acyclovir 560 MG ONCE ONE 06/02 2315 CAN Dextrose/Water 100 ML IV 06/03 0014 Acyclovir 560 MG ONCE ONE 06/02 2230 CAN IV 06/02 223 Amlodipine Besylate 5 MG DAILY 06/03 1000 AC 06/03 PO 0917 Ampicillin 0 .STK-MED ONE 06/02 2248 DC .ROUTE Ampicillin 2,000 MG ONCE ONE 06/02 2230 DC 06/02 Sodium Chloride 100 ML IV 06/02 225 2246 Aspirin 81 MG DAILY 06/03 1000 AC 06/03 PO 0917 Atorvastatin Calcium 80 MG 1700 06/03 1700 AC PO Brimonidine Tartrate 1 GTT BID 06/03 1000 AC 06/03 OPH 0918 Budesonide/ 2 PUF BID 06/03 1000 AC 06/03 Formoterol Fumarate INH 0919 Carbidopa/Levodopa 1 TAB QPM 06/03 2200 AC PO Ceftriaxone Sodium 0 .STK-MED ONE 06/02 2318 DC .ROUTE Ceftriaxone Sodium 2,000 MG ONCE ONE 06/02 2230 DC 06/02 IV 06/02 223 2314 Enoxaparin Sodium 40 MG DAILY 06/03 1000 AC 06/03 SC 0918 Ibuprofen 600 MG Q6P PRN 06/03 0145 AC PO Latanoprost 1 GTT QPM 06/03 2200 AC OPH Levothyroxine Sodium 0.1 MG DAILY AC 06/03 0720 AC 06/03 PO 0917 Lidocaine 0 .STK-MED ONE 06/02 1937 DC .ROUTE Non-Formulary 0 SEE ADMIN CRITERIA 06/03 800 UNVr Medication ANY Timolol Maleate 1 GTT BID 06/03 1000 AC 06/03 OPH 0918 Tiotropium [place] 1 PUF DAILY PRN 06/03 0730 AC INH Vancomycin HCl 0 .STK-MED ONE 06/02 2349 DC .ROUTE Vancomycin HCl 1,000 MG ONCE ONE 06/02 2315 DC 06/03 Sodium Chloride 250 ML IV 06/03 0014 0010 Vancomycin HCl 850 MG ONCE ONE 06/02 2230 CAN IV 06/02 223 Past History Travel History Traveled to [place] past 21 day No Medical History Blood Transfusion Hx: No Neurological: Parkinson's disease, TIA EENT: NONE Cardiovascular: hypertension Respiratory: asthma, bronchitis Gastrointestinal: NONE Hepatic: NONE Renal: RHABDOMYOLYSIS Musculoskeletal: NONE Psychiatric: NONE Endocrine: hypothyroidism Blood Disorders: NONE Cancer(s): NONE WEIGHT AND BALANCE CONTROL AGENT/Reproductive: NONE History of MRSA: No History of VRE: No History of CDIFF: No Isolation History: Airborne Tetanus Vaccine: 11/16/09 Surgical History Surgical History: APPY, CHOLY,KNEES Family History Relations & Conditions If Any: SON FH: diabetes mellitus FH: hypertension SISTER FH: colon cancer Psychosocial History Where Do You Live? Home Who Do You Live With? child Services at Home: Home Health Aide Primary Language: Peruvian Smoking Status: Never Smoked ETOH Use: denies use Illicit Drug Use: denies illicit drug use Power of Surveillance Operator/HCP? yes Functional Ability ADLs Independent: dressing, eating, toileting, bathing. Ambulation: walker IADLs Independent: shopping, housework, finances, food prep, telephone, transportation , medication admin. Review of Systems Comments 12 points reviewed as noted, otherwise negative. Exam & Diagnostic Data Last 24 Hrs of Vital Signs/I&O Vital Signs Date Time Temp Pulse Resp B/P B/P Pulse O2 O2 Flow FiO2 Mean Ox Delivery Rate 06/03 0917 82 140/7 06/03 0800 98.3 86 20 146/80 96 Room Air 06/03 0300 96 Room Air 06/03 0300 98.2 80 24 124/76 96 Room Air 06/03 0027 98.2 70 16 120/62 98 Room Air Room Air 06/02 2147 64 18 167/79 94 06/02 1914 96.7 70 18 161/80 94 Room Air 06/02 1617 97.2 98 18 135/74 100 Room Air Intake & Output 06/03 1600 06/03 0800 06/03 0000 Intake Total 111 Output Total Balance 111 Intake, IV 111 Patient 121 lb 125 lb Weight Weight Bed scale Reported by Patient Measurement Method Physical Exam Other Physical Findings: General Appearance NAD, appears frail Skin Temp/Moisture Exam: Warm/Dry; decreased torgor; healed lesions R forearm/ crusted; no vesicles noted. HEENT AT/NC, sclera anicteric, temp wasting Neck Limited ROM all directions including forward flexion Cardiovascular Regular Rate, Normal S1, Normal S2, no m/r/g Lungs Normal Air Movement, no rales Abdomen Normal Bowel Sounds, Soft, NT Neurological Normal Speech, Strength at 5/5 X4 Ext, Normal Tone, Reflexes 2+, tremor Last 24 Hours of Lab Results: Laboratory Tests 06/03 06/02 0500 2127 Chemistry Sodium (137 - 145 mmol/L) 138 Potassium (3.5 - 5.1 mmol/L) 3.9 Chloride (98 - 107 mmol/L) 101 Carbon Dioxide (22 - 30 mmol/L) 28 Anion Gap (5 - 16) 9 BUN (7 - 17 mg/dL) 18 H Creatinine (0.5 - 1.0 mg/dL) 0.6 Estimated GFR (>60 ml/min) > 60 BUN/Creatinine Ratio (7 - 25 %) 30.0 H Hematology CBC w Diff NO MAN DIFF REQ WBC (4.8 - 10.8 /CUMM) 9.6 RBC (4.20 - 5.40 /CUMM) 3.84 L Hgb (12.0 - 16.0 G/DL) 12.4 Hct (37 - 47 %) 37.2 MCV (81.0 - 99.0 FL) 96.9 MCH (27.0 - 31.0 PG) 32.5 H RDW (11.5 - 14.5 %) 13.8 Plt Count (130 - 400 /CUMM) 267 MPV (7.4 - 10.4 FL) 8.0 Gran % (42.2 - 75.2 %) 79.0 H Lymphocytes % (20.5 - 51.1 %) 11.0 L Monocytes % (1.7 - 9.3 %) 8.5 Eosinophils % (0 - 5 %) 1.2 Basophils % (0.0 - 2.0 %) 0.3 Absolute Granulocytes (1.4 - 6.5 /CUMM) 7.6 H Absolute Lymphocytes (1.2 - 3.4 /CUMM) 1.1 L Absolute Monocytes (0.10 - 0.60 /CUMM) 0.8 H Absolute Eosinophils (0.0 - 0.7 /CUMM) 0.1 Absolute Basophils (0.0 - 0.2 /CUMM) 0 PUBS MCHC (33.0 - 37.0 G/DL) 33.5 Urines Urine Color (YEL,AMB,STR) STRAW Urine Clarity (CLEAR) CLEAR Urine pH (5.0 - 8.0) 7.5 Ur Specific [place] (1.001 - 1.035) 1.010 Urine Protein (NEG,<30 MG/DL) NEG Urine Ketones (NEG) NEG Urine Nitrite (NEG) NEG Urine Bilirubin (NEG) NEG Urine Urobilinogen (0.1 - 1.0 EU/dl) 0.2 Ur Leukocyte Esterase (NEG) NEG Ur Microscopic EXAM NOT REQUIRED Urine Hemoglobin (NEG) NEG Urine Glucose (N MG/DL) NEG 06/022 2112 Chemistry Lactic Acid Cancelled Hematology Lymphocytes (%) 82 % Normal PMNs (%) 0 Misc Hematology Test (%) Other Body Source CSF WBC (0 - 5 /CUMM) 56 *H CSF RBC (-0 /CUMM) 396 H CSF Comment CSF Glucose (40 - 70 mg/dL) 49 CSF LDH (U/L) 196 CSF Total Protein (12 - 60 mg/dL) 123 H Serology Lyme Specimen Source Pending Lyme Disease DNA (PCR) Pending Herpes Simplex Source Pending HSV I DNA PCR Pending HSV II DNA PCR Pending 06/02 1900 Chemistry Sodium (137 - 145 mmol/L) 133 L Potassium (3.5 - 5.1 mmol/L) 4.6 Chloride (98 - 107 mmol/L) 95 L Carbon Dioxide (22 - 30 mmol/L) 29 Anion Gap (5 - 16) 10 BUN (7 - 17 mg/dL) 20 H Creatinine (0.5 - 1.0 mg/dL) 0.5 Estimated GFR (>60 ml/min) > 60 BUN/Creatinine Ratio (7 - 25 %) 40.0 H Glucose (65 - 99 mg/dL) 94 Lactic Acid (0.7 - 2.1 mmol/L) 1.0 Calcium (8.4 - 10.2 mg/dL) 9.5 Total Bilirubin (0.2 - 1.3 mg/dL) 0.9 AST (14 - 36 U/L) 27 ALT (9 - 52 U/L) 14 Alkaline Phosphatase (<127 U/L) 120 Troponin I (< 0.11 ng/ml) < 0.01 Total Protein (6.3 - 8.2 g/dL) 7.7 Albumin (3.5 - 5.0 g/dL) 4.3 Globulin (1.9 - 4.2 gm/dL) 3.4 Albumin/Globulin Ratio (1.1 - 2.2 %) 1.3 TSH (0.270 - 4.200 uIU/mL) 1.880 Free T4 (0.85 - 1.93 ng/dL) 1.61 Hematology CBC w Diff NO MAN DIFF REQ WBC (4.8 - 10.8 /CUMM) 8.2 RBC (4.20 - 5.40 /CUMM) 4.03 L Hgb (12.0 - 16.0 G/DL) 13.0 Hct (37 - 47 %) 39.1 MCV (81.0 - 99.0 FL) 97.0 MCH (27.0 - 31.0 PG) 32.2 H RDW (11.5 - 14.5 %) 13.9 Plt Count (130 - 400 /CUMM) 314 MPV (7.4 - 10.4 FL) 8.0 Gran % (42.2 - 75.2 %) 68.3 Lymphocytes % (20.5 - 51.1 %) 18.4 L Monocytes % (1.7 - 9.3 %) 9.5 H Eosinophils % (0 - 5 %) 3.4 Basophils % (0.0 - 2.0 %) 0.4 Absolute Granulocytes (1.4 - 6.5 /CUMM) 5.6 Absolute Lymphocytes (1.2 - 3.4 /CUMM) 1.5 Absolute Monocytes (0.10 - 0.60 /CUMM) 0.8 H Absolute Eosinophils (0.0 - 0.7 /CUMM) 0.3 Absolute Basophils (0.0 - 0.2 /CUMM) 0 PUBS MCHC (33.0 - 37.0 G/DL) 33.2 Serology Lyme Disease Antibody Pending Last 24 Hours of Deangelo Results: SPEC #: [id number] DELIO: 06/02/17 STATUS: RES RECD: 06/02/[address]: JUNAID DASILVA SOURCE: KITTY Wayne S ENTR: 06/02/[address]: VERN ROSE,PRESTON Henry SPDESC: CSF ORDERED: CSF CULTURE COMMENT: CLEAR COLORLESS Procedure Result > GRAM STAIN Final 06/03/17 WHITE BLOOD CELLS FEW OTHER NO ORGANISMS SEEN > CSF CULTURE Preliminary 06/03/17 NO GROWTH AFTER 1 DAY Diagnostic Data Recent Imaging Findings: SERVICE DATE: 06/02/17 EXAM TYPE: CAT - CT HEAD WO IV CONTRAST EXAMINATION: CT HEAD WITHOUT CONTRAST CLINICAL INFORMATION: Altered mental status. COMPARISON: 05/21/2017. TECHNIQUE: Contiguous axial images of the brain were obtained without IV contrast. DLP: 612 mGy-cm. FINDINGS: There are no pathologic extra-axial fluid collections. The lateral, third, fourth ventricles are prominent, but stable, age-appropriate and concordant with the appearance of the sulci. There is no evidence for acute intraparenchymal hemorrhage or infarct. And there is periventricular low-attenuation present indicative of small vessel disease. There is stable low-attenuation within the left cerebellar hemisphere. There is neither mass nor mass effect. There is no shift of midline structures. The paranasal sinuses and mastoid air cells are clear. There are no osseous lesions. IMPRESSION: No evidence for acute intracranial injury. Stable age-appropriate appearance of the brain. DICTATED BY: TERRI SAL MD DATE/TIME DICTATED:06/02/171933 AUDIO VISUAL TECH:DARVIN DATE/TIME TRANSCRIBED:06/02/171933 CONFIDENTIAL, DO NOT COPY WITHOUT APPROPRIATE AUTHORIZATION. 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 Suggestion: 1. Contact and airborne precautions. 2. VZV DNA PCR in CSF if possible to be added to current tests. 3. Acyclovir 10 mg/kg q 8 h (adjust dose per pharmacy taking in account kidney function/creatinine clearance). If poor po fluid intake consider IVF to prevent acute kidney injury while on acyclovir. 4. Trend BMP/CBC. 5. F/u final spinal fluid cx (so far NGTD) and pneumococcal urinary antigen. 6. Call if fever. Consult Acknowledgment - Thank you for your consult request.
--- NOTE | 2017-06-03 12:59 | RADIOLOGY REPORT ---
EXAMINATION: XR PORTABLE CHEST CLINICAL INFORMATION: Recent zoster. Assessment for pulmonary disease. Presumptive diagnosis of viral meningitis. COMPARISON: Chest x-rays, most recent of which is dated 05/21/2017. TECHNIQUE: Portable semierect view of the chest was obtained. FINDINGS: The cardiomediastinal silhouette is within normal limits in size. Calcification of the aortic arch is seen. Low lung volumes are noted with increased reticular opacities in the lung bases bilaterally, similar to previous exam. There is a stable 1.6 cm nodular opacity seen in the lateral right lung base, present on multiple prior exams dating back to 04/23/2016. No pleural effusion or pneumothorax is seen. Bony structures are unremarkable. IMPRESSION: Low lung volumes with bibasilar areas of subsegmental atelectasis seen. No change in focal nodular density in the right lateral lung base dating back to 04/23/2016. This is indeterminate in etiology. Previous chest CT scan from 01/22/2016 had shown multiple small clustered nodules in this location suggesting chronic airway associated disease. Consider reassessment with chest CT scan to evaluate more confidently for interval stability.
--- NOTE | 2017-06-03 13:42 | Cons- Neurology ---
General Information and HPI Consulting Request Date of Consult: 06/03/17 Requested By: RALF ROSE,RAYMON History of Present Illness: 87-year-old white female with known Parkinson's disease, treated by Dr. Chamorro with a continuous carbidopa/ levodopa infusion who was in her usual state of health until several weeks back when she had an episode of altered mental status in the setting of what appeared to be a herpes zoster eruption affecting the right upper extremity. She was treated with oral antiviral medication however since that time she has had a Global deterioration in function in regard to gait , cognition and activities of daily living such as eatingand toileting. History is obtained both from the chart and her aide who was at the bedside. Immediately prior to admission she was being evaluated by her neurologist in office. He noted the distinct change in her status and referred her to the [facility]. She underwent a lumbar puncture which showed 56 WBCs, 396 rbc 's, a protein of 123 and a glucose of 49. Peripheral white count was normal. She was afebrile. She has been started on acyclovir and has remained stable although continues to be confused. Allergies/Medications Allergies: Coded Allergies: prochlorperazine (From COMPAZINE) (Severe, ANAPHYLAXIS 02/09/16) prednisone (Intermediate, HALLUCINATIONS 02/09/16) Home Med List: Amlodipine Besylate (Norvasc) 5 MG TABLET 1 TAB PO DAILY HEART (Reported) Aspirin (Aspirin*) 81 MG TAB.CHEW 81 MG PO DAILY heart . Atorvastatin Calcium 80 MG TABLET 80 MG PO 1700 STROKE . Brimonidine Tartrate/Timolol (Combigan Eye Drops) 0.2 %-0.5 % DROPS 1 DROP OU QAM GLAUCOMA - BOTH EYES (Reported) Brimonidine Tartrate/Timolol (Combigan Eye Drops) 0.2 %-0.5 % DROPS 1 DROP OS QPM LEFT EYE (Reported) Budesonide/Formoterol Fumarate (Symbicort 80-4.5 Mcg Inhaler) 80 MCG-4.5 MCG/ ACTUATION HFA.AER.AD 2 PUF INH BID COPD (Reported) Calcium Carbonate (Calcium) 500 MG CALCIUM (1,250 MG) TAB.CHEW 500 MG PO D SUPPLEMENT (Reported) Carbidopa/Levodopa (Sinemet Cr 50-200 Tablet) 50 MG-200 MG TABLET.ER 1 TAB PO QPM PARKINSONS (Reported) Carbidopa/Levodopa (Duopa 4.63 MG-20 MG/Ml Suspens) (Unknown Strength) INT.MR TEACHER.SP (Unknown Dose) AD AD PARKINSONS (Reported) Latanoprost (Xalatan) 0.005 % DROPS 1 GTT OS QPM OCCULAR PRESSURE (Reported) Levothyroxine Sodium 100 MCG TABLET 1 TAB PO DAILY AC THYROID (Reported) Mirabegron (Myrbetriq) 50 MG TAB.ER.24H 1 TAB PO QPM overactive bladder ( Reported) Tiotropium [place] (Spiriva) 18 MCG CAP.W.DEV 1 CAP INH DAILY PRN SOB ( Reported) Review of Systems Review of Systems: Unreliable due to her mental status. Past History Travel History Traveled to [place] past 21 day No Medical History Blood Transfusion Hx: No Neurological: Parkinson's disease, TIA EENT: NONE Cardiovascular: hypertension Respiratory: asthma, bronchitis Gastrointestinal: NONE Hepatic: NONE Renal: RHABDOMYOLYSIS Musculoskeletal: NONE Psychiatric: NONE Endocrine: hypothyroidism Blood Disorders: NONE Cancer(s): NONE BASKETBALL SCOUT/Reproductive: NONE Surgical History Surgical History: APPY, CHOLY,KNEES Family History Relations & Conditions If Any: SON FH: diabetes mellitus FH: hypertension SISTER FH: colon cancer Psychosocial History Where Do You Live? Home Who Do You Live With? child Services at Home: Home Health Aide Primary Language: Turkish Smoking Status: Never Smoked ETOH Use: denies use Illicit Drug Use: denies illicit drug use Power of Cardroom Supervisor/HCP? yes Functional Ability ADLs Independent: dressing, eating, toileting, bathing. Ambulation: walker IADLs Independent: shopping, housework, finances, food prep, telephone, transportation , medication admin. Exam & Diagnostic Data Vital Signs and I&O Vital Signs Date Time Temp Pulse Resp B/P B/P Pulse O2 O2 Flow FiO2 Mean Ox Delivery Rate 06/03 0917 82 140/7 06/03 0800 98.3 86 20 146/80 96 Room Air 06/03 0300 96 Room Air 06/03 0300 98.2 80 24 124/76 96 Room Air 06/03 0027 98.2 70 16 120/62 98 Room Air Room Air 06/02 2147 64 18 167/79 94 06/02 1914 96.7 70 18 161/80 94 Room Air 06/02 1617 97.2 98 18 135/74 100 Room Air Intake & Output 06/03 1600 06/03 0800 06/03 0000 Intake Total 111 Output Total Balance 111 Intake, IV 111 Patient 121 lb 125 lb Weight Weight Bed scale Reported by Patient Measurement Method Elderly white female in no acute distress. She was awake, pleasant and cooperative. She was disoriented to place and time. She could not name her aid. She knew the name of our current president. Speech was fluent. The head was normocephalic and atraumatic. Neck was supple without meningismus. Pupils were equal and reactive. Extraocular movements were full. Face was symmetric. Tongue was midline. The motor examination showed increased tone at the wrists bilaterally. There was no resting tremor. No gross focal or lateralizing weakness was appreciated. Plantar responses were flexor. There was no ataxia on [id number] testing. Gait was not evaluated. 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 The patient would benefit from physical, occupational and speech therapy while in hospital. She will likely require a period of short-term rehabilitation following her inpatient stay. DVT precautions should be in place as she is relatively immobile. I do not believe that further neurodiagnostic studies are necessary at this time. Would continue her prehospitalization antiparkinsonian regimen. Please feel free to call with any further questions. Consult Acknowledgment - Thank you for your consult request.
[2017-06-03 16:00] VITALS: BP 120/70
--- NOTE | 2017-06-03 23:15 | NUR ---
SEE TRANSFER NOTE. PT TRANSFERRED VIA BED TO RM 173 ACCOMPANIED BY DISTRIBUTION TECHS.
[2017-06-04] VITALS: BP 128/64
--- NOTE | 2017-06-04 08:41 | PN- Housestaff ---
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 Toxic encephalopathy Chronic Parkinson's disease Subjective: Patient disoriented. No acute events overnight. Review of Systems Constitutional: Reports: see HPI. Objective Last 24 Hrs of Vital Signs/I&O Vital Signs Date Time Temp Pulse Resp B/P B/P Pulse O2 O2 Flow FiO2 Mean Ox Delivery Rate 06/04 0900 Room Air 06/04 0828 81 128/64 07/ 0000 98.7 81 20 128/64 96 Room Air 06/03 1600 98.5 78 20 120/70 97 Room Air Intake & Output 06/04 1600 06/04 0800 06/04 0000 Intake Total 590 Output Total 100 Balance 490 Intake, IV 350 Intake, Oral 240 Number 0 Bowel Movements Output, Urine 100 Physical Exam General Appearance: Patient disoriented HEENT: Atraumatic, PERRLA Neck: No JVD, No thryomegaly Cardiovascular: Regular Rate, Normal S1, Normal S2 Lungs: Clear to Auscultation, Normal Air Movement Abdomen: Normal Bowel Sounds, Soft, No Tenderness Extremities: No Cyanosis, No Edema Current Medications: Current Medications Sig/Cristal Start time Last Medication Dose Route Stop Time Status Admin Acetaminophen 650 MG Q6P PRN 06/03 0145 AC PO Acyclovir 550 MG Q8H 06/03 1500 AC 06/04 Dextrose/Water 100 ML IV 0700 Amlodipine Besylate 5 MG DAILY 06/03 1000 AC 06/04 PO 0828 Aspirin 81 MG DAILY 06/03 1000 AC 06/04 PO 0827 Atorvastatin Calcium 80 MG 1700 06/03 1700 AC 06/03 PO 1740 Brimonidine Tartrate 1 GTT BID 06/03 1000 AC 06/04 OPH 0828 Budesonide/ 2 PUF BID 06/03 1000 AC 06/04 Formoterol Fumarate INH 0827 Carbidopa/Levodopa 1 TAB QPM 06/03 2200 AC 06/03 PO 2255 Enoxaparin Sodium 40 MG DAILY 06/03 1000 AC 06/04 SC 0827 Ibuprofen 600 MG Q6P PRN 06/03 0145 AC PO Latanoprost 1 GTT QPM 06/03 2200 AC 06/03 OPH 2144 Levothyroxine Sodium 0.1 MG DAILY AC 06/03 0720 AC 06/04 PO 0700 Sodium Chloride 1,000 ML Q20H 06/03 1345 DC 06/03 IV 06/04 0944 1347 Timolol Maleate 1 GTT BID 06/03 1000 AC 06/04 OPH 0828 Tiotropium [place] 1 PUF DAILY PRN 06/03 0730 AC INH Last 24 Hrs of Lab/Deangelo Results Last 24 Hrs of Labs/Mics: Laboratory Tests 06/04/17 1038: Anion Gap 10, Estimated GFR > 60, Glucose 165 H, Calcium 8.4, Phosphorus 3.3, Magnesium 1.9, Total Bilirubin 0.6, AST 16, ALT 22, Albumin 3.2 L 06/04/17 0600: CBC w Diff NO MAN DIFF REQ, RBC 3.80 L, MCV 97.4, MCH 32.5 H, RDW 14.2, MPV 8.1, Gran % 73.5, Lymphocytes % 14.8 L, Monocytes % 8.8, Eosinophils % 2.5, Basophils % 0.4, Absolute Granulocytes 5.3, Absolute Lymphocytes 1.1 L, Absolute Monocytes 0.6, Absolute Eosinophils 0.2, Absolute Basophils 0, PUBS MCHC 33.3 Assessment/Plan Assessment: A: Ms. Mitchell is a 87 yo F with a PMH significant for TIA, hypothyroidism, hypertension, COPD, Parkinson's, recently admission at [facility] from 05/22 -05/23 for AMS and episodes of unresponsiveness. She was found to have right upper extremity herpes zoster and was sent home on 7 day course of valacyclovir 500 mg twice a day. EEG was negative at that time. Patient was instructed to follow up with the neurologist who recommended patient to go to ED for suspicion of meninigitis. An LP was recommended and performed in the ED which was found to have elevated WBC count suspicious for meningitis. P: 1. 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 * Continue acyclovir 550 q8 IV * Lyme Ab neg, HSV CSF pending 2. AMS/Toxic encephalopathy * CT head negative for acute injury * PT/OT ordered 3. Chronic Parkinson's disease * Continue home meds Carbidopa/Levodopa 4. HTN/HLD * Continue home meds 5. Hypothyroidism * Continue home meds DVT prophylaxis-Lovenox SC Problem List: 1. Parkinson's disease 2. Meningitis 3. Altered mental state Pain Ratin Pain Location: N/A Pain Goal: Remain pain free Pain Plan: N/A Tomorrow's Labs & Rationales: CBC to monitor infection BEP to monitor renal function VANCE ARCE MD 06/04/17 1051: Attending MD Review Statement Attending Statement Attending MD Statement: examined this patient, discuss w/resident/PA/CONSUMER MARKETING SPECIALIST, agreed w/resident/PA/CONSUMER MARKETING SPECIALIST, reviewed EMR data (avail), discussed with nursing, discussed with case mgmt, amended to note Attending Assessment/Plan: Patient seen and examined. Transferred out of the ICU overnight. No issues reported by nursing staff. She remains alert. She is conversing appropriately and reports feeling much better. She was eating her breakfast. She offered no complaints this morning. On examination she has no focal neurologic deficits. Chest x-ray done yesterday to look for disseminated disease showed no acute pathology. CSF culture has returned negative. Recommendations: Ambulate patient today to determine safety for discharge home. Discontinued elbow precautions. Follow-up with IV services for antiviral duration. Anticipate patient to be discharged home within the next 24 hours as long as she is deemed safe by the physical therapy service.
[2017-06-04 09:26] LABS: ABSOLUTE BASOPHIL COUNT 0 /CUMM (0.0-0.2); ABSOLUTE EOSINOPHIL COUNT 0.2 /CUMM (0.0-0.7); ABSOLUTE GRANULOCYTE CT 5.3 /CUMM (1.4-6.5); ABSOLUTE LYMPH COUNT 1.1 /CUMM (1.2-3.4); ABSOLUTE MONOCYTE COUNT 0.6 /CUMM (0.10-0.60); BASOPHIL % 0.4 % (0.0-2.0); EOSINOPHIL % 2.5 % (0-5); GRANULOCYTE % 73.5 % (42.2-75.2); MEAN CORPUSCULAR HGB 32.5 PG (27.0-31.0); MEAN CORPUSCULAR HGB CONC 33.3 G/DL (33.0-37.0); MEAN CORPUSCULAR VOLUME 97.4 FL (81.0-99.0); MEAN PLATELET VOLUME 8.1 FL (7.4-10.4); PLATELET COUNT 247 /CUMM (130-400); RBC DISTRIBUTION WIDTH 14.2 % (11.5-14.5); WHITE BLOOD CELL COUNT 7.3 /CUMM (4.8-10.8)
--- NOTE | 2017-06-04 15:20 | PN- Infect Dx ---
Subjective Subjective: No fever; per family still confused at times. Fair appetite. Cough (dry). Review of Systems Comments: 12 points reviewed as noted, otherwise negative. Objective Last 24 Hrs of Vital Signs/I&O Vital Signs Date Time Temp Pulse Resp B/P B/P Pulse O2 O2 Flow FiO2 Mean Ox Delivery Rate 06/04 0900 Room Air 06/04 0828 81 128/64 06/04 0000 98.7 81 20 128/64 96 Room Air 06/03 1600 98.5 78 20 120/70 97 Room Air Intake & Output 06/04 1600 06/04 0800 06/04 0000 Intake Total 590 Output Total 100 Balance 490 Intake, IV 350 Intake, Oral 240 Number 0 Bowel Movements Output, Urine 100 Physical Exam Other Physical Findings: General Appearance NAD, appears frail Skin Temp/Moisture Exam: Warm/Dry; healed lesions R forearm/crusted; no new vesicles noted. HEENT AT/NC, sclera anicteric, temp wasting Neck Limited ROM all directions including forward flexion Cardiovascular Regular Rate, Normal S1, Normal S2, no m/r/g Lungs Bs present, no rales Abdomen Normal Bowel Sounds, Soft, NT Neurological Normal Speech, Strength at 5/5 X4 Ext, Normal Tone Results Last 24 Hours of Lab Results: Laboratory Tests 06/04 06/04 1038 0600 Chemistry Sodium (137 - 145 mmol/L) 137 Potassium (3.5 - 5.1 mmol/L) 3.7 Chloride (98 - 107 mmol/L) 103 Carbon Dioxide (22 - 30 mmol/L) 24 Anion Gap (5 - 16) 10 BUN (7 - 17 mg/dL) 12 Creatinine (0.5 - 1.0 mg/dL) 0.5 Estimated GFR (>60 ml/min) > 60 Glucose (65 - 99 mg/dL) 165 H Calcium (8.4 - 10.2 mg/dL) 8.4 Phosphorus (2.5 - 4.5 mg/dL) 3.3 Magnesium (1.6 - 2.3 mg/dL) 1.9 Total Bilirubin (0.2 - 1.3 mg/dL) 0.6 AST (14 - 36 U/L) 16 ALT (9 - 52 U/L) 22 Albumin (3.5 - 5.0 g/dL) 3.2 L Hematology CBC w Diff NO MAN DIFF REQ WBC (4.8 - 10.8 /CUMM) 7.3 RBC (4.20 - 5.40 /CUMM) 3.80 L Hgb (12.0 - 16.0 G/DL) 12.3 Hct (37 - 47 %) 37.0 MCV (81.0 - 99.0 FL) 97.4 MCH (27.0 - 31.0 PG) 32.5 H RDW (11.5 - 14.5 %) 14.2 Plt Count (130 - 400 /CUMM) 247 MPV (7.4 - 10.4 FL) 8.1 Gran % (42.2 - 75.2 %) 73.5 Lymphocytes % (20.5 - 51.1 %) 14.8 L Monocytes % (1.7 - 9.3 %) 8.8 Eosinophils % (0 - 5 %) 2.5 Basophils % (0.0 - 2.0 %) 0.4 Absolute Granulocytes (1.4 - 6.5 /CUMM) 5.3 Absolute Lymphocytes (1.2 - 3.4 /CUMM) 1.1 L Absolute Monocytes (0.10 - 0.60 /CUMM) 0.6 Absolute Eosinophils (0.0 - 0.7 /CUMM) 0.2 Absolute Basophils (0.0 - 0.2 /CUMM) 0 PUBS MCHC (33.0 - 37.0 G/DL) 33.3 Last 24 Hours of Deangelo Results: SPEC #: [id number] DELIO: 06/02/17 STATUS: RES RECD: 06/02/[address] [facility] [address]: JUNAID DASILVA SOURCE: CENT N S ENTR: 06/02/[address]: VERN ROSE,PRESTON Henry SPDESC: CSF ORDERED: CSF CULTURE COMMENT: CLEAR COLORLESS Procedure Result > GRAM STAIN Final 06/03/17-08 WHITE BLOOD CELLS FEW OTHER NO ORGANISMS SEEN > CSF CULTURE Preliminary 06/04/17-913 NO GROWTH AFTER 2 DAYS Recent Imaging Studies: SERVICE DATE: 06/03/17- EXAM TYPE: RAD - XRY-PORTABLE CHEST XRAY EXAMINATION: XR PORTABLE CHEST CLINICAL INFORMATION: Recent zoster. Assessment for pulmonary disease. Presumptive diagnosis of viral meningitis. COMPARISON: Chest x-rays, most recent of which is dated 05/21/2017. TECHNIQUE: Portable semierect view of the chest was obtained. FINDINGS: The cardiomediastinal silhouette is within normal limits in size. Calcification of the aortic arch is seen. Low lung volumes are noted with increased reticular opacities in the lung bases bilaterally, similar to previous exam. There is a stable 1.6 cm nodular opacity seen in the lateral right lung base, present on multiple prior exams dating back to 04/23/2016. No pleural effusion or pneumothorax is seen. Bony structures are unremarkable. IMPRESSION: Low lung volumes with bibasilar areas of subsegmental atelectasis seen. No change in focal nodular density in the right lateral lung base dating back to 04/23/2016. This is indeterminate in etiology. Previous chest CT scan from 01/22/2016 had shown multiple small clustered nodules in this location suggesting chronic airway associated disease. Consider reassessment with chest CT scan to evaluate more confidently for interval stability. 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 Clinically improved; CXR results noted (lung nodule; f/u CT chest as OP recommended) Suggestion: 1. F/u VZV DNA PCR in CSF. 2. F/U neurology recom. 3. Continue Acyclovir 10 mg/kg q 8 h D #3/14(dose adjusted per pharmacy taking in account kidney function/creatinine clearance). If poor po fluid intake IVF to prevent acute kidney injury while on acyclovir. PICC line to complete antiviral treatment course. ?planned d/c to STR. 4. Monitor BMP/CBC closely while treated w/ acyclovir.
[2017-06-04 15:21] VITALS: BP 110/60
--- NOTE | 2017-06-04 16:00 | NUR ---
LATE ENTRY: PATIENT HAS DANAY MADE ATTEMPTS AT UNSAFE AMBULATION DURING ENTIRE SHIFT. POSY VEST REMOVED AND ORDER D/C'D. PATIENT IN LOW, LOCKED BED, BED ALARM, AND FALL PROTOCOL IN PLACE.
[2017-06-04 22:12] VITALS: BP 122/78
[2017-06-05 06:00] VITALS: BP 140/90
--- NOTE | 2017-06-05 07:11 | PN- Housestaff ---
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 Toxic encephalopathy Chronic Parkinson's disease Subjective: Patient has no complaints, AAO x 2 but able to follow commands. No acute events overnight Review of Systems Constitutional: Reports: see HPI. Objective Last 24 Hrs of Vital Signs/I&O Vital Signs Date Time Temp Pulse Resp B/P B/P Pulse O2 O2 Flow FiO2 Mean Ox Delivery Rate 06/04 2212 98.3 74 16 122/78 91 Room Air 06/04 1521 97.1 88 20 110/60 95 Room Air 06/04 0900 Room Air 06/04 0828 81 128/64 Intake & Output 06/05 0800 06/05 0000 06/04 1600 Intake Total 100 600 Output Total Balance 100 600 Intake, IV 300 Intake, Oral 100 300 Physical Exam General Appearance: Alert, Cooperative HEENT: Atraumatic, PERRLA, EOMI Neck: Supple, No JVD, No thryomegaly Cardiovascular: Irregular rate, Systolic murmur Lungs: Clear to Auscultation, Normal Air Movement Abdomen: Normal Bowel Sounds, Soft, No Tenderness Neurological: Normal Speech, Normal Tone, Sensation Intact, 4/5 motor strength in upper and lower ext Extremities: No Cyanosis, No Edema Current Medications: Current Medications Sig/Cristal Start time Last Medication Dose Route Stop Time Status Admin Acetaminophen 650 MG Q6P PRN 06/03 0145 AC PO Acyclovir 550 MG Q8H 06/03 1500 AC 06/05 Dextrose/Water 100 ML IV 0643 Amlodipine Besylate 5 MG DAILY 06/03 1000 AC 06/04 PO 0828 Aspirin 81 MG DAILY 06/03 1000 AC 06/04 PO 0827 Atorvastatin Calcium 80 MG 1700 06/03 1700 AC 06/04 PO 1650 Brimonidine Tartrate 1 GTT BID 06/03 1000 AC 06/04 OPH 2200 Budesonide/ 2 PUF BID 06/03 1000 AC 06/04 Formoterol Fumarate INH 2200 Carbidopa/Levodopa 1 TAB QPM 06/03 2200 AC 06/04 PO 2200 Enoxaparin Sodium 40 MG DAILY 06/03 1000 AC 06/04 SC 0827 Ibuprofen 600 MG Q6P PRN 06/03 0145 AC PO Latanoprost 1 GTT QPM 06/03 2200 AC 06/04 OPH 2200 Levothyroxine Sodium 0.1 MG DAILY AC 06/03 0720 AC 06/05 PO 0643 Potassium Chloride 40 MEQ .STK-MED ONE 06/04 2342 DC PO 06/04 2343 Sodium Chloride 1,000 ML Q20H 06/03 1345 DC 06/03 IV 06/04 0944 1347 Timolol Maleate 1 GTT BID 06/03 1000 AC 06/04 OPH 2200 Tiotropium [place] 1 PUF DAILY PRN 06/03 0730 AC INH Last 24 Hrs of Lab/Deangelo Results Last 24 Hrs of Labs/Mics: Laboratory Tests 06/04/17 1038: Anion Gap 10, Estimated GFR > 60, Glucose 165 H, Calcium 8.4, Phosphorus 3.3, Magnesium 1.9, Total Bilirubin 0.6, AST 16, ALT 22, Albumin 3.2 L Assessment/Plan Assessment: A: Ms. Mitchell is a 87 yo F with a PMH significant for TIA, hypothyroidism, hypertension, COPD, Parkinson's, recently admission at [facility] from 05/22 -05/23 for AMS and episodes of unresponsiveness. She was found to have right upper extremity herpes zoster and was sent home on 7 day course of valacyclovir 500 mg twice a day. EEG was negative at that time. Patient was instructed to follow up with the neurologist who recommended patient to go to ED for suspicion of meninigitis. An LP was recommended and performed in the ED which was found to have elevated WBC count suspicious for meningitis. P: 1. 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 * Continue acyclovir 550 q8 IV changed to Valtrex on discharge * Lyme Ab neg, HSV CSF pending 2. AMS/Toxic encephalopathy * CT head negative for acute injury * PT/OT recommends 24h OPERATING ROOM AIDE or STR 3. Chronic Parkinson's disease * Continue home meds Carbidopa/Levodopa 4. HTN/HLD * Continue home meds 5. Hypothyroidism * Continue home meds Skin grew Diphtheriods Diet- chopped and regular thin DVT prophylaxis-Lovenox SC Problem List: 1. Parkinson's disease 2. Meningitis 3. Altered mental state 4. Shingles rash Pain Ratin Pain Location: N/A Pain Goal: Remain pain free Pain Plan: N/A Tomorrow's Labs & Rationales: CBC BEP AROLE VANCE ROSE 06/05/17 1228: Attending MD Review Statement Attending Statement Attending MD Statement: examined this patient, discuss w/resident/PA/TOPOLOGY TEACHER, agreed w/resident/PA/TOPOLOGY TEACHER, reviewed EMR data (avail), discussed with nursing, discussed with case mgmt, amended to note Attending Assessment/Plan: Patient seen and examined. Resting comfortably and not in any acute distress. No changes in mental status overnight. Due to her underlying dementia she gets impulsive at times trying to get out of bed. Argenis was placed by nursing staff. She has no neurologic changes. She remains afebrile. She is tolerating oral intake. Antiviral therapy has been changed to oral route. She remains on isolation per recommendations of the ID service any results of viral PCR. Negative isolation may be discontinued. She was seen by the physical therapy service and cleared for discharge home as long as she has 24hrs supervision due to her underlying dementia and occasional impulsive behavior. Recommendations: -Patient is medically stable to be discharged home. -She will be discharged on oral acyclovir to complete 14 days of therapy. -Follow-up recommendations from the ID service regarding isolation once she is discharged.
[2017-06-05 07:27] VITALS: BP 172/82
--- NOTE | 2017-06-05 07:34 | Patient Discharge Instructions ---
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 Toxic encephalopathy Chronic Parkinson's disease You had these procedures: Lumbar puncture Watch for these problems: Fever, chills, altered mental status, headache, stiff neck Special Instructions: Follow up with the infectious disease doctor within one week of discharge Follow up with the neurologist within one week of discharge no visitors for next 10 days, especially women of child bearing age or any body who didnt have chicken pox as a child. Follow up with your PCP within 1-2 weeks after discharge Complete valacyclovir treatment Diet Continue normal diet: Yes Activity Full Activity/No Limits: Yes Acute Coronary Syndrome Inclusion Criteria At DC or during hospital stay patient has or had the following: ACS DIAGNOSIS No Discharge Core Measures Meds if any: Prescribed or Continued at Discharge Meds if any: NOT Prescribed or Continued at Discharge Congestive Heart Failure Inclusion Criteria At DC or during hospital stay patient has or had the following: CHF DIAGNOSIS No Discharge Core Measures Meds if any: Prescribed or Continued at Discharge Meds if any: NOT Prescribed or Continued at Discharge Cerebrovascular accident Inclusion Criteria At DC or during hospital stay patient has or had the following: CVA/TIA Diagnosis No Discharge Core Measures Meds if any: Prescribed or Continued at Discharge Meds if any: NOT Prescribed or Continued at Discharge Venous thromboembolism Inclusion Criteria VTE Diagnosis No VTE Type NONE VTE Confirmed by (Test) NONE Discharge Core Measures - Per Current guidelines, there needs to be overlap - treatment for the first 5 days of Warfarin therapy. - If discharged on Warfarin prior to 5 days of - overlap therapy, the patient will need to be - assessed for post discharge needs including - *Post discharge parental anticoagulation - *Warfarin and/or parental anticoagulation education - *Follow up date to check INR post discharge At least 5 days overlap therapy as Inpatient No Meds if any: Prescribed or Continued at Discharge Note: Overlap Therapy is Warfarin and Anticoagulant Meds if any: NOT Prescribed or Continued at Discharge
[2017-06-05] MEDS ORDERED: ACYCLOVIR200 M1 PO (07:45)
--- NOTE | 2017-06-05 07:51 | PN- Student ---
Subjective Subjective: Tele Events: N/A Subjective: No events overnight. Patient is AOx2 (person and place, doesn't know year, but is well oriented to the past few day). Patient mentions she's been coughing. She ambulated yesterday with her home-aid. Objective Objective: Exam General: No acute distress, AOx2 (person/place, not time) Rest of the exam was not able to be performed. Patient is on contact precautions for meningoencaphalitis. I was not sure of protocol for contact and using my own stethoscope and was unable to find a stethoscope. Current Medications Sig/Cristal Start time Last Medication Dose Route Stop Time Status Admin Acetaminophen 650 MG Q6P PRN 06/03 0145 AC PO Acyclovir 550 MG Q8H 06/03 1500 AC 06/05 Dextrose/Water 100 ML IV 0643 Amlodipine Besylate 5 MG DAILY 06/03 1000 AC 06/04 PO 0828 Aspirin 81 MG DAILY 06/03 1000 AC 06/04 PO 0827 Atorvastatin Calcium 80 MG 1700 06/03 1700 AC 06/04 PO 1650 Brimonidine Tartrate 1 GTT BID 06/03 1000 AC 06/04 OPH 2200 Budesonide/ 2 PUF BID 06/03 1000 AC 06/04 Formoterol Fumarate INH 2200 Carbidopa/Levodopa 1 TAB QPM 06/03 2200 AC 06/04 PO 2200 Enoxaparin Sodium 40 MG DAILY 06/03 1000 AC 06/04 SC 0827 Ibuprofen 600 MG Q6P PRN 06/03 0145 AC PO Latanoprost 1 GTT QPM 06/03 2200 AC 06/04 OPH 2200 Levothyroxine Sodium 0.1 MG DAILY AC 06/03 0720 AC 06/05 PO 0643 Sodium Chloride 1,000 ML Q20H 06/03 1345 DC 06/03 IV 06/04 0944 1347 Timolol Maleate 1 GTT BID 06/03 1000 AC 06/04 OPH 2200 Tiotropium [place] 1 PUF DAILY PRN 06/03 0730 AC INH Results Results: Laboratory Tests 06/04/17 1038: Anion Gap 10, Estimated GFR > 60, Glucose 165 H, Calcium 8.4, Phosphorus 3.3, Magnesium 1.9, Total Bilirubin 0.6, AST 16, ALT 22, Albumin 3.2 L 06/04/17 0600: CBC w Diff NO MAN DIFF REQ, RBC 3.80 L, MCV 97.4, MCH 32.5 H, RDW 14.2, MPV 8.1, Gran % 73.5, Lymphocytes % 14.8 L, Monocytes % 8.8, Eosinophils % 2.5, Basophils % 0.4, Absolute Granulocytes 5.3, Absolute Lymphocytes 1.1 L, Absolute Monocytes 0.6, Absolute Eosinophils 0.2, Absolute Basophils 0, PUBS MCHC 33.3 06/03/17 0500: Anion Gap 9, Estimated GFR > 60, BUN/Creatinine Ratio 30.0 H, CBC w Diff NO MAN DIFF REQ, RBC 3.84 L, MCV 96.9, MCH 32.5 H, RDW 13.8, MPV 8.0, Gran % 79.0 H, Lymphocytes % 11.0 L, Monocytes % 8.5, Eosinophils % 1.2, Basophils % 0.3, Absolute Granulocytes 7.6 H, Absolute Lymphocytes 1.1 L, Absolute Monocytes 0.8 H, Absolute Eosinophils 0.1, Absolute Basophils 0, PUBS MCHC 33.5 06/02/172126: Urine Color STRAW, Urine Clarity CLEAR, Urine pH 7.5, Ur Specific [place] 1.010, Urine Protein NEG, Urine Ketones NEG, Urine Nitrite NEG, Urine Bilirubin NEG, Urine Urobilinogen 0.2, Ur Leukocyte Esterase NEG, Ur Microscopic EXAM NOT REQUIRED, Urine Hemoglobin NEG, Urine Glucose NEG 06/02/172115: Lactic Acid Cancelled 06/02/172111: CSF Glucose 49, CSF LDH 196, CSF Total Protein 123 H 06/02/172111: Lymphocytes 82, % Normal PMNs 0, [facility] [place] [facility] , Ref Lab Test Result Pending, Ref Lab Test Result Pending, CSF WBC 56 *H, CSF RBC 396 H, CSF Comment , Lyme Specimen Source Pending, Lyme Disease DNA (PCR) Pending, Herpes Simplex Source Pending, HSV I DNA PCR Pending, HSV II DNA PCR Pending 06/02/17 1900: Anion Gap 10, Estimated GFR > 60, BUN/Creatinine Ratio 40.0 H, Glucose 94, Lactic Acid 1.0, Calcium 9.5, Total Bilirubin 0.9, AST 27, ALT 14, Alkaline Phosphatase 120, Troponin I < 0.01, Total Protein 7.7, Albumin 4.3, Globulin 3.4 , Albumin/Globulin Ratio 1.3, TSH 1.880, Free T4 1.61, CBC w Diff NO MAN DIFF REQ, RBC 4.03 L, MCV 97.0, MCH 32.2 H, RDW 13.9, MPV 8.0, Gran % 68.3, Lymphocytes % 18.4 L, Monocytes % 9.5 H, Eosinophils % 3.4, Basophils % 0.4, Absolute Granulocytes 5.6, Absolute Lymphocytes 1.5, Absolute Monocytes 0.8 H, Absolute Eosinophils 0.3, Absolute Basophils 0, PUBS MCHC 33.2, Lyme Disease Antibody 0.90 Microbiology 06/03 1115 URINE ROUT: Streptococcus pneumoniae Antigen (M - COMP 06/03 0450 UPPER RESP: Surveillance Culture - COMP 06/03 0450 GI: Surveillance Culture - COMP 06/03 0000 BLOOD: Blood Culture - RES 06/03 0000 BLOOD: Blood Culture - RES 06/02 2127 URINE ROUT: Urine Culture - RES 06/02 2112 CENT N S: CSF Culture - RES 06/02 2112 CENT N S: Gram Stain - RES Assessment/Plan Assessment: 87 year old WF known with Parkison disease, HTN, COPD,TIA and hypothyroidism admitted and treated 05/22/17 for erpes zoster, came in 06/02/17 with aseptic meningitis; presumed disseminated zoster with meningeal involvement. Plan: Meningoencaphalitis d/t disseminated zoster -F/u VZV DNA PCR in CSF. -F/U neurology recom. -switch acyclovir to 600 mg q8 PO -Monitor BMP/CBC closely while treated w/ acyclovir -consider short-term rehab following inpatient stay AMS/Toxic encephalopathy -CT head negative for acute injury -PT/OT ordered Chronic Parkinson's disease -Continue home meds Carbidopa/Levodopa HTN/HLD -Continue home meds Hypothyroidism -Continue home meds DVT prophylaxis. DVT prophylaxis.
--- NOTE | 2017-06-05 08:01 | Discharge Summary ---
Visit Information Visit Dates Admission Date: 06/02/17 Discharge Date: 06/05/2017 Hospital Course Course Attending Physician: RAYMON ARAMBULA MD Primary Care Physician: PRESTON PORRAS MD Other Care Providers: dr. delgado- infectious disease specialist dr. james- neurology Consulting Request: 1 Consulting Specialty: Neurology Consulting Request: 2 Consulting Specialty: Infectious Disease Hospital Course: Patient is 87-year-old female with past medical history significant for TIA, hypothyroidism, hypertension, COPD, Parkinson's disease on 16 hour continuous infusion carbidopa levodopa, recent admission at [facility] from May 22 - May 23 with altered mental status and episodes of unresponsiveness and was found to have right upper extremity herpes zoster and was sent home on 7 day course of valacyclovir 500 mg twice a day. EEG was negative at that time. Patient was instructed to see his neurologist. she went to neurologist office , she was slightly confused and LP was recommended and patient was sent to ER. By the time LP results were back was found to have elevated WBC count suspicious for meningitis requiring admission at this point. Patient wasn't able to give us proper information but admits that she had frequent falls when her legs gave up at home since she was discharged from here but she denied any head strike. She denied any headache, neck stiffness, fever, chills photophobia, recent travel or sick contact. Vital signs on admission were temperature 90.7, pulse 98 respiratory rate 18, blood pressure 135/74 and saturating 100% on room air. Labs were WBC count 8.2, hemoglobin 13.0, hematocrit 39.1, platelet count 314, sodium 133, potassium 4.6, BUN/creatinine 20, creatinine 0.5, negative troponins , normal thyroid function clear urinalysis, CSF showed 56 WBCs, 396 RBCs, 49 glucose, 196 LDH and 123 proteins. Gram stain and cultures were ordered Head CT was negative for any acute intracranial pathology Physical examination In the but oriented 2 Head atraumatic Neck supple, no neck stiffness, HEENT, PERRLA, EOMI, no chest clear to auscultate Heart S1 and S2 normal with no added sounds Abdomen Soft with intact tubing for carbidopa levodopa infusion Extremities showed no edema No neurological deficit noted on neurological examination, Brudzinski's and kernig test were negative. Problem list 1. History of Parkinson's disease 2. History of TIA 3. History of recent herpes zoster/shingles 4. Altered mental status with recent herpes zoster infection now with aseptic meningitis/encephalitis 1. Altered mental status/viral meningitis/encephalitis 85-year-old female with history of Parkinson disease, COPD, TIA, hypertension and hypothyroidism with recent diagnosis of right upper extremities herpes zoster infection/shingles came in with positive CSF findings on LP and confusion admitted for aseptic meningitis/encephalitis. Patient was initially admitted to ICU for close observation for 24 hours and then downgraded to general medicine floor. Closely monitored vitals every shift. Monitored for any evidence of fever and nuchal rigidity. Lumbar puncture results are suggestive of aseptic or viral meningitis. Pancultures remainder negative. CSF cultures diphtheroids, most likely contaminant . maintained on contact and and airborne precautions. Varicella zoster virus DNA PCR in CSF was sent-results pending. Infectious disease specialist and neurologist on board She received IV ceftriaxone and vancomycin, ampicillin and acyclovir in the emergency room for empiric treatment of meningitis but given recent herpes zoster and after reviewing CSF findings most likely this is aseptic meningitis. She was continued on IV acyclovir 550 mg every week 8 hours for 4 days in the hospital. She was discharged on oral valcyclovir thousand milligrams 3 times a day for 10 more days. 2. Parkinson's disease Continued carbidopa L-dopa 3. Hypertension Continued amlodipine 5 mg daily 4. Hyperlipidemia Continued home medications Lipitor 80 daily 5. COPD history Received total respiratory care. Nebulizer and inhaler treatments 6. Hypothyroidism Continued home medications levothyroxine 100 g daily 7. Overactive bladder Continued home medications mirabegan Heart healthy diet Pharmacological DVT prophylaxis Patient is full code Complications: none Allergies: Coded Allergies: prochlorperazine (From COMPAZINE) (Severe, ANAPHYLAXIS 02/09/16) prednisone (Intermediate, HALLUCINATIONS 02/09/16) Significant Procedures: Procedures Comments Comments: Lumbar puncture was performed in the emergency room in which the son signed consent form and was to risks and benefits were discussed with family members and patient. Patient was placed in left lateral position in which using initially L4-L5 site local anesthesia and sterile technique was used I used approximately 10 mL of local anesthesia using 1% lidocaine where lumbar puncture was unsuccessful then using the L3-L4 then 10 mL of local anesthesia of 1% lidocaine again was used site the lumbar puncture was ascertained in which minimal blood-tinged CSF fluid was initially noted however the rest of CSF was clear. Needle was removed bandage was applied patient was placed 30 of head of bed patient tolerated well the procedure. Pertinent Lab Results: head ct FINDINGS: There are no pathologic extra-axial fluid collections. The lateral, third, fourth ventricles are prominent, but stable, age-appropriate and concordant with the appearance of the sulci. There is no evidence for acute intraparenchymal hemorrhage or infarct. And there is periventricular low-attenuation present indicative of small vessel disease. There is stable low-attenuation within the left cerebellar hemisphere. There is neither mass nor mass effect. There is no shift of midline structures. The paranasal sinuses and mastoid air cells are clear. There are no osseous lesions. IMPRESSION: No evidence for acute intracranial injury. Stable age-appropriate appearance of the brain. cxr FINDINGS: The cardiomediastinal silhouette is within normal limits in size. Calcification of the aortic arch is seen. Low lung volumes are noted with increased reticular opacities in the lung bases bilaterally, similar to previous exam. There is a stable 1.6 cm nodular opacity seen in the lateral right lung base, present on multiple prior exams dating back to 04/23/2016. No pleural effusion or pneumothorax is seen. Bony structures are unremarkable. IMPRESSION: Low lung volumes with bibasilar areas of subsegmental atelectasis seen. No change in focal nodular density in the right lateral lung base dating back to 04/23/2016. This is indeterminate in etiology. Previous chest CT scan from 01/22/2016 had shown multiple small clustered nodules in this location suggesting chronic airway associated disease. Consider reassessment with chest CT scan to evaluate more confidently for interval stability. Disposition Summary Disposition Principal Diagnosis: Altered mental status due to aseptic meningitis/encephalitis. Additional Diagnosis: 1. History of Parkinson's disease 2. History of TIA 3. History of recent herpes zoster/shingles Discharge Disposition: home health services Discharge Instructions General Discharge Information Code Status: Full Code Patient's Diet: As tolerated Patient's Activity: As tolerated Follow-Up Instructions/Appts: Follow up with the infectious disease doctor within one week of discharge Follow up with the neurologist within one week of discharge isolation precaution- no visitors for next 10 days, especially women of child bearing age or any body who didnt have chicken pox as a child- as per infectious disease specialist Follow up with your PCP within 1-2 weeks after discharge Complete valacyclovir treatment. Medications at Discharge Discharge Medications: Continue taking these medications: Levothyroxine Sodium (Levothyroxine Sodium) 100 MCG TABLET 1 Tablet ORAL DAILY BEFORE BREAKFAST Comments: Last Taken:06/05/17 Time:0700 Brimonidine Tartrate/Timolol (Combigan Eye Drops) 0.2 %-0.5 % DROPS 1 DROP Both Eyes Every Morning Comments: Last Taken:06/05/17 Time:1000 Latanoprost (Xalatan) 0.005 % DROPS 1 Drop Left Eye Every night Comments: Last Taken:06/04/17 Time:10PM Carbidopa/Levodopa (Sinemet Cr 50-200 Tablet) 50 MG-200 MG TABLET.ER 1 Tablet ORAL Every night Comments: Last Taken:06/04/17 Time:10PM Amlodipine Besylate (Norvasc) 5 MG TABLET 1 Tablet ORAL DAILY Comments: Last Taken:06/05/17 Time:1000 Budesonide/Formoterol Fumarate (Symbicort 80-4.5 Mcg Inhaler) 80 MCG-4.5 MCG/ ACTUATION HFA.AER.AD 2 Puff Inhale through mouth TWICE DAILY Comments: Last Taken:06/05/17 Time:1000 Calcium Carbonate (Calcium) 500 MG CALCIUM (1,250 MG) TAB.CHEW 500 Milligram ORAL Every Day Comments: Last Taken:05/23/17 Time:1000 Tiotropium [place] (Spiriva) 18 MCG CAP.W.DEV 1 Capsule Inhale through mouth DAILY as needed for SOB Comments: Last Taken:06/05/17 Time:1000 GIVEN SYMBICORT Mirabegron (Myrbetriq) 50 MG TAB.ER.24H 1 Tablet ORAL Every night Qty = 90 Comments: Last Taken:06/04/17 Time:1000 Atorvastatin Calcium (Atorvastatin Calcium) 80 MG TABLET 80 Milligram ORAL 5 PM Qty = 120 Instructions: . Comments: Last Taken:06/05/17 Time:4PM Aspirin (Aspirin*) 81 MG TAB.CHEW 81 Milligram ORAL DAILY Qty = 90 Instructions: . Comments: Last Taken:06/05/17 Time:1000 Brimonidine Tartrate/Timolol (Combigan Eye Drops) 0.2 %-0.5 % DROPS 1 DROP Left Eye Every night Comments: Last Taken:06/04/17 Time:2200 Carbidopa/Levodopa (Duopa 4.63 MG-20 MG/Ml Suspens) (Unknown Strength) INT.APPLICATIONS MANAGER.SP Unknown Dose Right Ear As Directed Start taking the following new medications: Valacyclovir HCl (Valtrex) 1,000 MG TABLET 1 Tablet ORAL THREE TIMES DAILY Qty = 31 No Refills Instructions: . Comments: Last Taken:06/05/17 Time:1500 IV FORM Copies To: VERN ROSE,PRESTON Henry
[2017-06-05 08:58] VITALS: BP 140/90
[2017-06-05] MEDS ORDERED: VALTREX1000 MG PO ×2 (09:48→19:03)
[2017-06-05 10:38] LABS: ABSOLUTE BASOPHIL COUNT 0 /CUMM (0.0-0.2); ABSOLUTE EOSINOPHIL COUNT 0.2 /CUMM (0.0-0.7); ABSOLUTE GRANULOCYTE CT 4.5 /CUMM (1.4-6.5); ABSOLUTE LYMPH COUNT 1.2 /CUMM (1.2-3.4); ABSOLUTE MONOCYTE COUNT 0.6 /CUMM (0.10-0.60); BASOPHIL % 0.4 % (0.0-2.0); EOSINOPHIL % 3.6 % (0-5); GRANULOCYTE % 68.6 % (42.2-75.2); HEMATOCRIT 37.5 % (37-47); MEAN CORPUSCULAR HGB 32.7 PG (27.0-31.0); MEAN CORPUSCULAR HGB CONC 33.5 G/DL (33.0-37.0); MEAN CORPUSCULAR VOLUME 97.6 FL (81.0-99.0); MEAN PLATELET VOLUME 8.2 FL (7.4-10.4); PLATELET COUNT 263 /CUMM (130-400); RBC DISTRIBUTION WIDTH 14.7 % (11.5-14.5); RED BLOOD CELL CT 3.85 /CUMM (4.20-5.40); WHITE BLOOD CELL COUNT 6.6 /CUMM (4.8-10.8)
== END 2017-06-05 18:43 | DRG 73 ==
LOC: ERH 16:00 → ERHI 23:49 → CRI 23:49 → 1NO 23:49 → ENRESERV 06-03 01:19 → CRI 06-03 02:18 → 1NO 06-03 23:00 → ENPENDDIS 06-05 14:50 → 1NO 06-05 18:43
PROVIDERS: Internal Medicine; Internal Medicine Cardiovascular Disease; Physician Assistant; Student in an Organized Health Care Education/Training Program; ADMIT Student in an Organized Health Care Education/Training Program
PROC: 00JU3ZZ Inspection of Spinal Canal, Percutaneous Approach (ICD-10-PCS; principal; 2017-06-02)
DX: B02.0 Zoster encephalitis (principal); G92 Toxic encephalopathy; G20 Parkinson's disease; M62.82 Rhabdomyolysis; J44.9 Chronic obstructive pulmonary disease, unspecified; I10 Essential (primary) hypertension; E03.9 Hypothyroidism, unspecified; N32.81 Overactive bladder; E78.5 Hyperlipidemia, unspecified; Z86.73 Personal history of transient ischemic attack (TIA), and cerebral infarction without residual deficits
CPT/HCPCS: 1NP; 86618; 87070; 87205; 87529; 87801; ERO; 81003; 82436; 87040; 87071; 87086; 87450; 88305; 93005; 93010; 96374; 96375; 97110-GO; 97116-GO; 97161-GP; 97166-GO; 99291; J0290; J0696; J1650; J3370; J3490